=== PATIENT | male | born 1960 | race Caucasian/White ===

== ENCOUNTER 2021-07-01 11:47 | Inpatient (IN) | payer MEDICAID ==
[2021-07-01] VITALS (7 sets, daily range): BP systolic 176–246; BP diastolic 123–189
[~2021-07-01] VITALS: Ht 172.7 cm; Wt 62.1 kg
--- NOTE | 2021-07-01 11:47 | NUR ---
BIBA TAKEN TO ER BED 2
--- NOTE | 2021-07-01 11:58 | NUR ---
60 Y/O MALE BIBA FROM STREET, NOTED WITH ABD PAIN 10/10 X 1 WEEK, BURNING, PRESSURE,,A KAREN, [facility] BP 220/104, STATED THEY SMOKED COCAINE TODAY. C/O CHEST PAIN PRESSURE 10/10, SOB. A/OX4, GCS 15, RESPIRATIONS EVEN AND UNLABORED. PT STATED THAT THEY WERE IN [facility] 1 WEEK AGO AND LEFT AMA, THEY DIAGNOSED HIM WITH HYPERTENSION, DID NOT RECEIVE ANY MEDICATION. STATES THAT HE WAS AN IV DRUG USER. NKDario PMH: HTN
[2021-07-01] MEDS ORDERED: NACL 0.9% 1,000 ML IV ONE ×2 (12:15→14:00)
[2021-07-01] MEDS ORDERED: HALOPERIDOL IM 5 MG/ML VIAL IVP ONE (12:15)
[2021-07-01] MEDS ORDERED: diphenhydrAMINE 50 MG/ML VIAL IVP ONE ×2 (12:15→17:20)
[2021-07-01] MEDS ORDERED: LORazepam 2 MG/ML VIAL IVP ONE (12:25)
[2021-07-01] MEDS ORDERED: ONDANSETRON 4 MG/2 ML VIAL IVP ONE (12:30)
[2021-07-01] MEDS ORDERED: NITROGLYCERIN 0.4 MG TAB SL ONE (12:30)
--- NOTE | 2021-07-01 13:05 | NUR ---
LAB AT BEDSIDE
[2021-07-01] MEDS ORDERED: NITROGLYCERIN 2% 1 GM PKT TP ONE (13:30)
[2021-07-01 13:39] LABS: BASOPHILS # (AUTO) 0.1 K/uL (0.00-0.22); BASOPHILS % (AUTO) 1.3 % (0.0-2.0); EOSINOPHILS # (AUTO) 0.2 K/uL (0-0.4); EOSINOPHILS % (AUTO) 3.3 % (0.0-4.0); HEMATOCRIT 37.4 % (36-52); HEMOGLOBIN 13.2 g/dL (12.0-18.0); LYMPHOCYTES # (AUTO) 2.1 K/uL (2.0-11.5); LYMPHOCYTES % (AUTO) 29.9 % (20.5-51.1); MEAN CORPUSCULAR HEMOGLOBIN 34 pg (27-31); MEAN CORPUSCULAR HGB CONC 35 g/dL (33-37); MEAN CORPUSCULAR VOLUME 96.9 fL (80-94); MONOCYTES # (AUTO) 0.5 K/uL (0.8-1.0); MONOCYTES % (AUTO) 6.9 % (1.7-9.3); NEUTROPHILS # (AUTO) 4.2 K/uL (1.8-7.7); NEUTROPHILS % (AUTO) 58.6 % (42.2-75.2); PLATELET COUNT (AUTO) 159 K/uL (140-450); RED BLOOD CELL COUNT(AUTO) 3.86 MIL/uL (4.20-6.10); RED CELL DISTRIBUTION WIDTH 13.7 % (11.6-13.7); WHITE BLOOD COUNT (AUTO) 7.1 K/uL (4.8-10.8)
[2021-07-01 13:52] LABS: ALBUMIN 2.8 g/dL (3.4-5.0); ANION GAP 7.8 (8-16); CARBON DIOXIDE 26.6 mmol/L (21-32); CREATININE 1.6 mg/dL (0.6-1.3); POTASSIUM 3.4 mmol/L (3.5-5.1); TOTAL BILIRUBIN 0.7 mg/dL (0.0-1.0)
[2021-07-01] MEDS ORDERED: NITROGLYCERIN 50 MG/D5W PREMIX 250 ML IV ONE ×2 (14:00→16:07)
--- NOTE | 2021-07-01 14:35 | NUR ---
PT NOTED TO HAVE DECREASE IN O2, SATTING AT 90% ON ROOM AIR, DR. ARAUJO MADE AWARE AND STARTED ON O2 2LPM NC, SATTING NOW AT 96-99%
[2021-07-01] MEDS ORDERED: DOCUSATE SODIUM 100 MG GELCAP PO PRN (15:25)
[2021-07-01] MEDS ORDERED: SODIUM PHOS / POTASSIUM PHOS 1 PKT PDR PO PRN (15:25)
[2021-07-01] MEDS ORDERED: MORPHINE SULFATE 2 MG/ML SYR IVP PRN (15:25)
[2021-07-01] MEDS ORDERED: MAGNESIUM OXIDE 400 MG TAB PO PRN (15:25)
[2021-07-01] MEDS ORDERED: ACETAMINOPHEN 325 MG TAB PO PRN (15:25)
[2021-07-01] MEDS ORDERED: POTASSIUM CHLORIDE 10 MEQ TABER PO PRN (15:25)
[2021-07-01] MEDS ORDERED: ONDANSETRON 4 MG/2 ML VIAL IM/IVP PRN (15:25)
[2021-07-01] MEDS ORDERED: NITROGLYCERIN 50 MG/D5W PREMIX 250 ML IV PRN (15:55)
--- NOTE | 2021-07-01 15:55 | NUR ---
Patient will be admitted to care of DR YA. Admited to ICU. Will go to [facility] ICU 1. Belongings list completed. Report to JENNIFER GARCIA.
[2021-07-01 16:26] LABS: MAGNESIUM 2.2 mg/dL (1.8-2.4); PHOSPHORUS 3.7 mg/dL (2.5-4.9); THYROID STIMULATING HORMONE 2.08 uIU/mL (0.34-3.74)
[2021-07-01] MEDS: hydrALAZINE 20 MG/ML VIAL IVP PRN (16:28)
--- NOTE | 2021-07-01 16:42 | NUR ---
PT WAS B/B FROM ED @1540 WITH CORONA. CO HTN. INITIALLY UNABLE TO DETECT BP. TRIED SEVERAL TIME. GOT BP 208/137-97. NITROGLYCERIN DRIP WAS STARTED STAT. PT WAS ALSO RESTLESS ANG AGITATING. CO PAIN ON CHEST. MORPHINE 1MG GIVEN IVP. PT WAS RESTLESS AND AGITATIN STILL. CHARGE NURSE GOT MD ORDER OF ATIVAN FOR THE RESTLESS.
[2021-07-01] MEDS ORDERED: LORazepam 2 MG/ML VIAL ONE (16:48)
--- NOTE | 2021-07-01 16:48 | NUR ---
PT. GETTING RESTING VERY RESTING DIFFICUL TO CONTROL CALLED DR. YA ORDER TO GIVE ATIVAN 2MG IV P GIVEN.
--- NOTE | 2021-07-01 17:00 | NUR ---
WE FOND "CRYSTAL' ON PT'S BED. SECURITY WAS CALLED. DRUG WAS HANDED OVER TO HIM.
[2021-07-01] MEDS ORDERED: diphenhydrAMINE 50 MG/ML VIAL ONE (17:22)
--- NOTE | 2021-07-01 17:24 | NUR ---
PT GETTING VERY RESTLESS CALL DR. YA HE ORDER TO GIVE BENADRYL 50MG IVP GIVEN.
--- NOTE | 2021-07-01 18:37 | NUR ---
NITRO DRIP STARTED @1630 @5MCG/MIN. THEN INCREASED TO 10MCG/MIN @1700. NOW NITRO DRIP INCREASED TO 15MCG/MIN BP WAS 130/130 Addendum: 07/01/21 at 1841 by Agency Nurse 19, RN RN PT IS AGITATING ON BED. ATTENDING WAS PAGED BY CHARGE NURSE DERRICK FRIEDMAN FOR MORE SEDATION.
[2021-07-01] MEDS: LORazepam 2 MG/ML VIAL IVP PRN (22:19)
--- NOTE | 2021-07-01 22:21 | NUR ---
PATIENT VERY RESTLESS, AGITATED TRYING TO GET OUT OF BED. DAY NURSE STATED TO ME HE FOUND CRYSTAL POWDER IN PATIENT PAINTS WHEN THEY TOOK THEM OFF. B/P 216/159, HEART RATE 100, TEMP 97.9. LUNGS DIMINISH. ON ROOM AIR. PATIENT RECEIVED ATIVAN 2 MG IM 2218 TRIED MANY TIMES TO GET A LINE IN PATIENT NOTABLE TO WILL WAIT TIL PATIENT BECOMES MORE QUIET.
[2021-07-01] MEDS ORDERED: DEXMEDETOMIDINE HCL 100 MCG/ML 2 ML VIAL IV ONE (23:55)
[2021-07-02] VITALS (20 sets, daily range): BP systolic 118–211; BP diastolic 62–118
--- NOTE | 2021-07-02 01:25 | NUR ---
AT 100 JENNIFER PICC LINE NURSE HERE PUT X2 INTROCAN 18 GA GUIDED WITH ULTRA SOUND. STARTED PRECEDEX 400 MCG IN 100CC NS AT 0.2 MCG KG/HOUR.TO INCREASE EVERY 30 MIN 0.1 MCG/KG HOUR.WAS STARTED AT 0000. NEXT HUNG AT 0045 NITROGLYCERIN IN D5W 50MG STARTED AT 5 MCG/MIN INCREASE EVERY 5MIN NOW AT 0130 AT 17 MCG/MIN. MAX 20 MCG. PATIENT NOW LESS RESTLESS THEN BEFORE MIDNITE.
--- NOTE | 2021-07-02 01:35 | NUR ---
JENNIFER PUT INTROCAN 18 GA IN BOTH ARMS AT 2330. WITH ULTRA SOUND.
[2021-07-02] MEDS: LORazepam 2 MG/ML VIAL IVP PRN ×2 (05:14→20:20)
--- NOTE | 2021-07-02 05:57 | NUR ---
0555 TURN OFF NITRO V/S HEART RATE 65 B/P 128/62. PRECEDEX AT 1.0 16 ML/HR. STILL INFUSING.
[2021-07-02] MEDS: DEXMEDETOMIDINE HCL 400 MCG in NACL 0.9% 96 ML IV SCH ×5 (07:11→16:02)
[2021-07-02 07:15] LABS: BASOPHILS # (AUTO) 0.1 K/uL (0.00-0.22); BASOPHILS % (AUTO) 0.9 % (0.0-2.0); EOSINOPHILS % (AUTO) 0.8 % (0.0-4.0); HEMATOCRIT 34.8 % (36-52); HEMOGLOBIN 12.4 g/dL (12.0-18.0); LYMPHOCYTES # (AUTO) 1.4 K/uL (2.0-11.5); LYMPHOCYTES % (AUTO) 21.2 % (20.5-51.1); MEAN CORPUSCULAR HEMOGLOBIN 34 pg (27-31); MEAN CORPUSCULAR HGB CONC 36 g/dL (33-37); MEAN CORPUSCULAR VOLUME 95.7 fL (80-94); MONOCYTES # (AUTO) 0.6 K/uL (0.8-1.0); MONOCYTES % (AUTO) 8.7 % (1.7-9.3); NEUTROPHILS # (AUTO) 4.4 K/uL (1.8-7.7); NEUTROPHILS % (AUTO) 68.4 % (42.2-75.2); PLATELET COUNT (AUTO) 122 K/uL (140-450); RED BLOOD CELL COUNT(AUTO) 3.63 MIL/uL (4.20-6.10); RED CELL DISTRIBUTION WIDTH 13.6 % (11.6-13.7); WHITE BLOOD COUNT (AUTO) 6.5 K/uL (4.8-10.8)
--- NOTE | 2021-07-02 07:34 | NUR ---
RECEIVED PATIENT FROM FIELD CANE SCALE CLERK NURSE FOR CONTINUITY OF CARE. PT IS AOX0, PT UNDER SEDATION. RESPIRATIONS EVEN AND UNLABORED. ON ROOM AIR AND NO RESPIRATORY DISTRESS NOTED. SKIN IS, WARM, DRY, AND INTACT. IV SITE ON LFA AND RFA 18 G. INTACT AND PATENT. INFUSING PRECEDEX 1 MCG/KG/HR. DRY WEIGHT 63 KG. FLACC 0. INITIAL ASSESSMENT COMPLETED. PLAN OF CARE DISCUSSED. SAFETY PRECAUTIONS IN PLACE. CALL LIGHT WITHIN REACH. WILL CONTINUE TO MONITOR.
[2021-07-02] MEDS ORDERED: DEXMEDETOMIDINE HCL 100 MCG/ML 2 ML VIAL IV ONE (07:48)
[2021-07-02 07:53] LABS: CARBON DIOXIDE 26.4 mmol/L (21-32); CREATININE 1.6 mg/dL (0.6-1.3); POTASSIUM 3.4 mmol/L (3.5-5.1)
--- NOTE | 2021-07-02 08:02 | NUR ---
PATIENT HAS BEEN SCREENED AND CATEGORIZED MODERATE NUTRITION RISK. PATIENT WILL BE SEEN WITHIN 3-5 DAYS OF ADMISSION. 07/02/21-07/06/[address]
[2021-07-02] MEDS ORDERED: HEPARIN PER PHARMACY MC PRN (08:30)
[2021-07-02] MEDS ORDERED: PANTOPRAZOLE 40 MG TABEC PO SCH (09:00)
[2021-07-02] MEDS ORDERED: FUROSEMIDE 40 MG/4 ML VIAL IVP SCH (09:00)
[2021-07-02] MEDS ORDERED: PANTOPRAZOLE 40 MG INJ VIAL IVP ONE (09:15)
--- NOTE | 2021-07-02 09:45 | NUR ---
TOOK PATIENT TO RADIOLOGY FOR HEAD CT
--- NOTE | 2021-07-02 09:57 | NUR ---
TRANSFERRED PATIENT BACK TO ROOM. PT IS STABLE.
--- NOTE | 2021-07-02 10:00 | NUR ---
FULL SERVICE SUPERVISOR AT BEDSIDE.
[2021-07-02 10:22] LABS: PROTHROMBIN TIME 10.3 secs (10.8-13.4)
[2021-07-02] MEDS ORDERED: hePARIN / DEXT 5% PREMIX 250 ML IV SCH (11:00)
--- NOTE | 2021-07-02 12:05 | NUR ---
US TECH AT BEDSIDE
[2021-07-02] MEDS: hydrALAZINE 20 MG/ML VIAL IVP PRN (12:12)
[2021-07-02 12:52] LABS: BILIRUBIN,URINE NEGATIVE (NEGATIVE); BLOOD, URINE 1+ (NEGATIVE); COLOR,URINE YELLOW (YELLOW); LEUKOCYTE ESTERASE ,URINE NEGATIVE (NEGATIVE); NITRITE, URINE NEGATIVE (NEGATIVE); PH,URINE 6.5 (5.0-9.0); UGLUCOSE NEGATIVE (NEGATIVE)
--- NOTE | 2021-07-02 13:10 | NUR ---
INSERTED ROBERTSON CATHETER. COLLECTED URINE SAMPLE AND SENT TO LABS
[2021-07-02 13:27] LABS: BARBITURATE, URINE NEGATIVE ng/ml (NEG <=200); BENZODIAZEPINE, URINE POSITIVE ng/mL (NEG <=200); CANNABINOID, URINE NEGATIVE ng/mL (NEG <=50); COCAINE, URINE POSITIVE ng/mL (NEG <=300); OPIATE, URINE POSITIVE ng/mL (NEG <=2000); PHENCYCLIDINE SCREEN,URINE NEGATIVE ng/mL (NEG <=25)
[2021-07-02 13:30] LABS: APPEARANCE,URINE HAZY (CLEAR)
[2021-07-02 13:33] LABS: RBC,URINE 0-5 /HPF (0-5); URINE AMORPHOUS URATE 1+ /HPF (None Seen); WBC,URINE NONE SEEN /HPF (0-5)
--- NOTE | 2021-07-02 15:15 | NUR ---
CLEANED AND CHANGED PATIENT'S LINEN. KEPT C/D/I. PT IS STABLE. NO DISTRESS NOTED. WILL CONTINUE TO MONITOR.
--- NOTE | 2021-07-02 17:40 | NUR ---
CHECKED ON PATIENT. PT IS STABLE. NO DISTRESS NOTED. WILL CONTINUE TO MONITOR.
--- NOTE | 2021-07-02 19:25 | NUR ---
ENDORSED TO COMPUTER SCIENTIST NURSE FOR CONTINUITY OF CARE. PT IS STABLE.
[2021-07-02] MEDS: FUROSEMIDE 40 MG/4 ML VIAL IVP SCH (21:39)
--- NOTE | 2021-07-02 21:54 | NUR ---
PATIENT LETHARGIC HAS PRECEDEX AT 1.0 MCG/KG/HR. AND HEPARIN 750 UNITS /HR 7.5CC/HR.START AT 1309. PATIENT GIVEN ATIVAN 2020 DUE TO AGITATION INCREASING. PRECEDEX AT 1 MCG/KG/HR HEART RATE BERTIN 59 HEART RATE.NO C/O OF CHEST PAIN GIVEN LASIX 40MG IVP. HAS A F/C DRAINING YELLOW URINE. TEMP 97.7. LAB NOT ABLE TO GET PTT FROM PATIENT. STATED WILL TRY AGAIN AT 2200. NO DISTRESS NOTED.
[2021-07-03] VITALS (20 sets, daily range): BP systolic 111–195; BP diastolic 54–103
[2021-07-03] MEDS: DEXMEDETOMIDINE HCL 400 MCG in NACL 0.9% 96 ML IV SCH ×2 (00:04→11:01)
[2021-07-03] MEDS: LORazepam 2 MG/ML VIAL IVP PRN ×2 (00:40→05:17)
--- NOTE | 2021-07-03 07:30 | NUR ---
RECEIVED PATIENT FROM CERTIFIED ENERGY MANAGER NURSE FOR CONTINUITY OF CARE. PT IS AOX1, RESPONDS BRIEFLY TO NAME SEDATED TO RASS-1. RESPIRATIONS EVEN AND UNLABORED. ON ROOM AIR AND NO RESPIRATORY DISTRESS NOTED. SKIN IS, WARM, DRY, AND INTACT. IV SITE ON LFA AND RFA 18 G. INTACT AND PATENT. INFUSING PRECEDEX 0.8 MCG/KG/HR AND HEPARIN DRIP 1000 UNITS/HR. DRY WEIGHT 63 KG. FLACC 0. INITIAL ASSESSMENT COMPLETED. PLAN OF CARE DISCUSSED. SAFETY PRECAUTIONS IN PLACE. CALL LIGHT WITHIN REACH. WILL CONTINUE TO MONITOR.
[2021-07-03 08:29] LABS: BASOPHILS # (AUTO) 0.1 K/uL (0.00-0.22); BASOPHILS % (AUTO) 1.1 % (0.0-2.0); EOSINOPHILS # (AUTO) 0.2 K/uL (0-0.4); EOSINOPHILS % (AUTO) 2.6 % (0.0-4.0); HEMATOCRIT 38.5 % (36-52); HEMOGLOBIN 13.5 g/dL (12.0-18.0); LYMPHOCYTES % (AUTO) 25.7 % (20.5-51.1); MEAN CORPUSCULAR HEMOGLOBIN 34 pg (27-31); MEAN CORPUSCULAR HGB CONC 35 g/dL (33-37); MEAN CORPUSCULAR VOLUME 96.9 fL (80-94); MONOCYTES # (AUTO) 0.8 K/uL (0.8-1.0); MONOCYTES % (AUTO) 10.6 % (1.7-9.3); NEUTROPHILS # (AUTO) 4.6 K/uL (1.8-7.7); PLATELET COUNT (AUTO) 133 K/uL (140-450); RED BLOOD CELL COUNT(AUTO) 3.97 MIL/uL (4.20-6.10); RED CELL DISTRIBUTION WIDTH 13.8 % (11.6-13.7); WHITE BLOOD COUNT (AUTO) 7.7 K/uL (4.8-10.8)
[2021-07-03 08:31] LABS: PROTHROMBIN TIME 10.6 secs (10.8-13.4)
[2021-07-03] MEDS: hydrALAZINE 10 MG TAB PO SCH ×3 (09:00→17:00)
--- NOTE | 2021-07-03 09:00 | NUR ---
DUE IV MEDS GIVEN ORDERED, PT NO AWAKE ENOUGH TO EAT OR TAKE PO MEDS. NOTIFIED DR BAILEY
[2021-07-03] MEDS: PANTOPRAZOLE 40 MG INJ VIAL IVP SCH (09:15)
[2021-07-03] MEDS: FUROSEMIDE 40 MG/4 ML VIAL IVP SCH (09:15)
[2021-07-03] MEDS: hydrALAZINE 20 MG/ML VIAL IVP PRN ×2 (09:15→19:31)
[2021-07-03 09:26] LABS: MAGNESIUM 2.4 mg/dL (1.8-2.4); PHOSPHORUS 5.5 mg/dL (2.5-4.9)
[2021-07-03] MEDS: ATORVASTATIN 20 MG TAB PO SCH (09:30)
[2021-07-03] MEDS ORDERED: cloNIDine-TTS1 0.1 MG/24 HR 1 EA PATCH TD SCH (10:06)
--- NOTE | 2021-07-03 10:30 | NUR ---
NOTIFIED DR BAILEY THAT RADIOLOGY CALLED AND THEY WANTED PLATELET PHERESIS BEFORE DOING PARACENTESIS. DR BAILEY ORDERED 1 UNIT PLATELET
--- NOTE | 2021-07-03 11:15 | NUR ---
SEEN AND EXAMINED BR DR SHETTY, ORDERS NOTED AND CARRIED OUT
[2021-07-03 11:20] LABS: APPEARANCE,URINE CLEAR (CLEAR); BILIRUBIN,URINE NEGATIVE (NEGATIVE); BLOOD, URINE 1+ (NEGATIVE); COLOR,URINE YELLOW (YELLOW); LEUKOCYTE ESTERASE ,URINE NEGATIVE (NEGATIVE); NITRITE, URINE NEGATIVE (NEGATIVE); UGLUCOSE NEGATIVE (NEGATIVE)
[2021-07-03] MEDS: MUPIROCIN CA NASAL 2% 1GM TUBE NS SCH (11:30)
[2021-07-03] MEDS: CHLORHEXADINE GLUC 2% CLOTH TP SCH (11:30)
[2021-07-03 11:56] LABS: CALCIUM OXALATE CRYSTALS,UR None Seen /HPF (None Seen); COARSE GRANULAR CASTS,URINE None Seen /LPF (None Seen); FINE GRANULAR CASTS,URINE None Seen /LPF (None Seen); HYALINE CASTS, URINE None Seen /LPF (None Seen); OTHER CASTS, URINE None Seen /LPF (None Seen); OTHER CRYSTALS,URINE None Seen /HPF (None Seen); RBC,URINE 0-5 /HPF (0-5); RED BLOOD CELL CASTS,URINE None Seen /LPF (None Seen); TRICHOMONAS,URINE None Seen /HPF (None Seen); TRIPLE PHOSPHATE CRYSTAL,UR None Seen /HPF (None Seen); URIC ACID CRYSTALS,URINE None Seen /HPF (None Seen); URINE AMORPHOUS URATE None Seen /HPF (None Seen); WAXY CASTS,URINE None Seen /LPF (None Seen); WBC,URINE 0-5 /HPF (0-5); YEAST,URINE None Seen /HPF (None Seen)
--- NOTE | 2021-07-03 12:53 | NUR ---
DC PLANNIN YRS OLD MALE HOMELESS PATIENT WAS ADMITTED FROM ER WITH A DX OF ACUTE CHEST PAIN ACUTE CHF COCAINE ABUSE. PATIENT HAS A HX OF HTN. UDS +, TROP ON ARRIVAL [address] HEAD NEGATIVE. RENAL US BILATERAL RENAL CYST. ADMINISTERED IVF, HEPARIN DRIP , PRECEDEX DRIP AND IV LASIX . CONSULTED WITH PULMINDA NEPHRO AND CARDIO. DC PLAN NETWORK OPERATIONS CENTER TECHNICIAN TO EVALUATE FOR HOMELESSNESS. CM TO FOLLOW Addendum: 07/04/21 at 1143 by Brandi Felipe RN DC PLANNING: PATIENT MORE AWAKE, OFF PRECEDEX. CARDIO ADJUSTED HOME MEDS, DC HEPARIN AND RECOMMENDED AIRPLANE FIRST OFFICER F/U OUT PT, STALLION MANAGER RECOMMENDED TO DECREASE LASIX 20 MG TO DAILY, ANKUR RECOMMENDS CONTINUE PRECEDEX DRIP. DC PLAN NETWORK OPERATIONS CENTER TECHNICIAN TO EVALUATE HOMELESSNESS. CM TO FOLLOW. Addendum: 07/06/21 at 1026 by Brandi Felipe RN DC PLANNING: PATIENT STATED HE LIVES WITH HIS FRIEND. STABLE FOR DISCHARGE.
--- NOTE | 2021-07-03 13:00 | NUR ---
PT RESTING IN BED, OPENS EYES TO NAME, NODS TO SIMPLE QUESTIONS. STILL UNABLE TO TAKE PO MEDS AT THIS TIME DUE TO LETHARGY
--- NOTE | 2021-07-03 13:29 | NUR ---
DANY ATTEMPTED TO OUTREACH TO PATIENTS SIGNIFICANT OTHER, IRON AT [phone] HOWEVER, UNABLE TO REACH. DANY LEFT MESSAGE REQUESTING A RETURN PHONE CALL.
--- NOTE | 2021-07-03 15:20 | NUR ---
RESTING IN BED, NO APPARENT DISTRESS, NO S/S OF PAIN, ON ROOM AIR
[2021-07-03] MEDS: FUROSEMIDE 20 MG/2 ML VIAL IVP SCH (17:07)
--- NOTE | 2021-07-03 17:42 | NUR ---
RASS -1, RESPONSIVE TO NAME, NO RESPIRATORY DISTRESS, FLACC 0
--- NOTE | 2021-07-03 19:15 | NUR ---
pt more awake at this time, able to swallow and drink without difficulty
--- NOTE | 2021-07-03 19:30 | NUR ---
RECEIVED REPORT FROM RN RADHAHIFT NURSE SCOTT GARCIA AT BEDSIDE FOR CONTINUITY OF CARE. PT LYING IN BED HE IS AROUSABLE TO NAME AND LIGHT SHAKING. EYES ARE EQUAL AND REACTIVE TO LIGHT PUPIL ON RIGHT EYE IS 2MM PUPIL ON LEFT EYE IS 3MM. PT CAN COMMUNICATE NEEDS IN SHORT SENTENCES. HE SAID HE WAS HUNGRY AND THIRSTY. PT ALSO HAS A ROBERTSON CATHETER IN PLACE AND DRAINING LIGHT YELLOW URINE. NO EDEMA OF LOWER LEGS AND SKIN INTACT. HE HAS A LEFT AND RIGHT F/A 18 GUAGE. PRECEDEX IS RUNNING AT 0.4MCG/KG/HR. LEFT IV SITE IS SALINE LOCKED AT THIS TIME. PT DEMEANOR IS CALM AND COOPERATIVE. ALL UNIVERSAL FALLS PRECAUTIONS IN PLACE.
--- NOTE | 2021-07-03 20:15 | NUR ---
PT WAS GIVEN IVP HYDRALAZINE FOR B/P OF . PT HAS NO C/O AT THIS TIME. DIET WAS CHANGED TO CARDIAC DUE TO PT MORE AWAKE AND ABLE TO EAT. PT ALSO GIVEN ORDERED AND SCHEDULED HEPARIN SQ SHOT. PT EDUCATED REGARDING PURPOSE OF MEDICATION AND HE VERBALIZED UNDERSTANDING. WILL REASSESS B/P. AL REQUESTED NEEDS ATTENDED BY STAFF AND ALL UNIVERSAL FALLS PRECAUTIONS IN PLACE.
--- NOTE | 2021-07-03 21:00 | NUR ---
BLOOD PRESSURE REASSESSED IT WAS 140/84, PT HAS NO S/S OF PAIN OR DISTRESS NOTED. ALL ORDERED PRECAUTIONS IN PLACE.
--- NOTE | 2021-07-03 22:00 | NUR ---
PT ALERT AND AWAKE NO C/O VOICED. HE IS SPEAKING ON PHONE TO GIRLFRIEND.
--- NOTE | 2021-07-03 23:00 | NUR ---
PT REQUESTED AND ATE SANDWICH AT BEDSIDE, HE IS CALM AND WATCHING TV IN BED.
[2021-07-04] VITALS (15 sets, daily range): BP systolic 112–166; BP diastolic 59–102
--- NOTE | 2021-07-04 00:33 | NUR ---
PT IN BED RESTING WITH EYES CLOSED HE CONTINUES ON PRECEDEX AT CURRENT RATE NO C/O VOICED. HE IS RESTING BUT AROUSABLE TO LIGHT TOUCH V/S FOLLOWS: T 98.7 P 78 R B/P IS 118/61 02 97% ON ROOM AIR. PT FINISHED REQUEST SANDWICH NO C/O VOICED AND ALL UNIVERSAL FALLS PRECAUTIONS IN PLACE.
--- NOTE | 2021-07-04 01:50 | NUR ---
NEW BAG OF PRECEDEX HUNG AND CONTINUES AT 0.04MCG/KG/HR.
[2021-07-04] MEDS: DEXMEDETOMIDINE HCL 400 MCG in NACL 0.9% 96 ML IV SCH (01:55)
--- NOTE | 2021-07-04 02:00 | NUR ---
PT SLEEPING IN BED NO S/S OF PAIN OR DISTRESS NOTED. V/S FOLLOWS: P 77 R 20 B/P 125/59 02 98% ON ROOM AIR. ALL ORDERED PRECAUTIONS IN PLACE.
[2021-07-04 06:20] LABS: BASOPHILS # (AUTO) 0.1 K/uL (0.00-0.22); BASOPHILS % (AUTO) 1.1 % (0.0-2.0); EOSINOPHILS # (AUTO) 0.1 K/uL (0-0.4); EOSINOPHILS % (AUTO) 1.7 % (0.0-4.0); HEMATOCRIT 37.7 % (36-52); HEMOGLOBIN 13.2 g/dL (12.0-18.0); LYMPHOCYTES # (AUTO) 1.8 K/uL (2.0-11.5); LYMPHOCYTES % (AUTO) 33.1 % (20.5-51.1); MEAN CORPUSCULAR HEMOGLOBIN 34 pg (27-31); MEAN CORPUSCULAR HGB CONC 35 g/dL (33-37); MEAN CORPUSCULAR VOLUME 96.5 fL (80-94); MONOCYTES # (AUTO) 0.6 K/uL (0.8-1.0); MONOCYTES % (AUTO) 10.4 % (1.7-9.3); NEUTROPHILS % (AUTO) 53.7 % (42.2-75.2); PLATELET COUNT (AUTO) 152 K/uL (140-450); RED BLOOD CELL COUNT(AUTO) 3.91 MIL/uL (4.20-6.10); WHITE BLOOD COUNT (AUTO) 5.5 K/uL (4.8-10.8)
[2021-07-04 06:24] LABS: ANION GAP 10.7 (8-16); CARBON DIOXIDE 28.3 mmol/L (21-32); CREATININE 2.3 mg/dL (0.6-1.3)
--- NOTE | 2021-07-04 06:30 | NUR ---
PT AWAKE AND HUNGRY ASKING FOR SOMETHING TO EAT, PT GIVEN SANDWICH AND DRINK. URINE OUTPUT IS 700MLS. NO C/O VOICED. ALL ORDERED PRECAUTIONS IN PLACE.
--- NOTE | 2021-07-04 07:15 | NUR ---
OPENING NOTE: REPORT RCVD FROM OUTGOING NOC RN, ALL CARES ASSUMED. (RADHA GARCIA)
[2021-07-04] MEDS: ATORVASTATIN 20 MG TAB PO SCH (08:23)
[2021-07-04] MEDS: PANTOPRAZOLE 40 MG INJ VIAL IVP SCH (08:23)
[2021-07-04] MEDS: hydrALAZINE 10 MG TAB PO SCH (08:23)
[2021-07-04] MEDS: FUROSEMIDE 20 MG/2 ML VIAL IVP SCH (08:26)
--- NOTE | 2021-07-04 08:30 | NUR ---
EDUCATION PROVIDED ON MEDICATIONS, ALL QUESTIONS ANSWERED. PATIENT WAS PASSIVE WITH SESSION. WILL CONTINUE TO EDUCATE THROUGHOUT SHIFT.
--- NOTE | 2021-07-04 09:09 | NUR ---
HELD HEPRAIN SQ DUE TO ELEVATED PTT, CHARGE AWARE AND MD PAGED FOR NOTIFICATION.
--- NOTE | 2021-07-04 09:35 | NUR ---
DR. GARCÍA MAKING ROUNDS, VERBAL BEDSIDE REPORT, NEW ORDERS OBTAINED AND TRANSCRIBED.
--- NOTE | 2021-07-04 09:48 | NUR ---
RIGHT FOREARM PIV D/C, DISLODGED. AREA CLEAN AND DRY WITH NO SIGNS OF INFECTION NOTED.
--- NOTE | 2021-07-04 09:50 | NUR ---
RENAL MD MAKING ROUNDS, VERBAL BEDSIDE REPORT GIVEN. NO NEW ORDERS AT THIS TIME.
--- NOTE | 2021-07-04 09:59 | NUR ---
FAMILY CALLED FOR UPDATES, PER PATIENT PERMISSION GIVEN TO GIVE INFORMATION TO THE SISTER. ALL QUESTIONS ANSWERED AT THIS TIME.
--- NOTE | 2021-07-04 10:01 | NUR ---
MEDIA CENTER SPECIALIST CONSULT PLACED, PATIENT HAS VERBALLY EXPRESSED WANTING INFORMATION ON DRUG REHAB / DETOX PROGRAMS.
[2021-07-04] MEDS ORDERED: POTASSIUM CHLORIDE 10 MEQ TABER PO SCH (10:30)
--- NOTE | 2021-07-04 10:30 | NUR ---
TRANSFER ORDER PLACED, PATIENT WILL GO TO TELE
--- NOTE | 2021-07-04 11:00 | NUR ---
DR. SHETTY MAKING ROUNDS, VERBAL BEDSIDE REPORT GIVEN. NO NEW ORDERS AT THIS TIME. MD TO REVIEW CHART.
[2021-07-04] MEDS: CHLORHEXADINE GLUC 2% CLOTH TP SCH (11:59)
[2021-07-04] MEDS: MUPIROCIN CA NASAL 2% 1GM TUBE NS SCH (12:02)
[2021-07-04] MEDS: chlordiazePOXIDE 25 MG CAP PO SCH ×2 (12:03→17:27)
[2021-07-04] MEDS: hydrALAZINE 25 MG TAB PO SCH ×2 (12:04→17:27)
[2021-07-04] MEDS: ISOSORBIDE DINITRATE 20 MG TAB PO SCH ×2 (12:04→17:26)
--- NOTE | 2021-07-04 13:23 | NUR ---
JON GARCIA FROM ICU GAVE REPORT FOR PATIENT CONTINUITY OF CARE.
--- NOTE | 2021-07-04 13:40 | NUR ---
PATIENT WHEELED ON WHEELCHAIR BY RADHA WEBB. PATIENT AWAKE, ALERT VERBALLY RESPONSIVE. DENIES PAIN OR ANY DISCOMFORT. WITH SALINE LOCK ON RIGHT FOREARM YEVGENIY 18. SKIN INTACT. PATIENT ON ROBERTSON CATHETER FOR I/O. PATIENT SITUATED TO ROOM AND GOES TO TOILET. ORIENTED TO ROOM, CALL LIGHT, VISITING HOURS. AND BED .
--- NOTE | 2021-07-04 13:46 | NUR ---
PATIENT TRANSFFERED TO ROOM 113 TELE, BEDSIDE REPORT GIVEN TO SHANITA MAYER, ALL QUESTIONS ANSWERED. PATIENT PLACED ONTO TELE MONITOR. BED LOW AND LOCKED FOR SAFETY. NO ACUTE DISTRESS AND OR DISCOMFORT.
--- NOTE | 2021-07-04 15:52 | NUR ---
DC PLANNING PATIENT WAS ADMITTED FROM [facility]/ED ON 07/01/21 WITH A DX OF ACUTE CHEST PAIN. SW MET WITH PATIENT AT BEDSIDE FOR THE PURPOSE OF DISCUSSING AND GATHERING COLLATERAL INFORMATION. PATIENT REPORTS LIVING AT [address] [place] [phone] WITH HIS , HOWEVER, REPORTS HIS STAYS ARE ON AND OFF, HE PREFERS TO BE ON THE STREET. PATIENT REPORTS EMERGENCY CONTACT AND MEDICAL DECISION MAKER JOSE ALBERTO HAYES [phone]. PATIENT DENIES CURRENTLY HAVING AD IN PLACE. SW SPOKE WITH PATIENT ABOUT THE IMPORTANCE OF A.D. PATIENT WAS RECEPTIVE AND ACCEPTED AD PACKET PROVIDED BY SW. PATIENT REPORTS BEING INCONSISTENT WITH SEEING HIS PCP AND LAST VISIT THREE YRS AGO. PATIENT REPORTS HIS SOURCE OF INCOME [employer] BENEFITS AND RECEIVES 1040.00. PATIENT REPORTS BEING INDEPENDENT AND DENIES USE OF DME. PATIENT DENIES CURRENTLY TAKING ANY MEDICATION AT THIS TIME. PATIENT DENIES BARRIERS IN ACQUIRING MEDICATION AND REPORTS RECEIVING MEDICATION FROM [facility] ON [facility] IN THE [facility]. SW INQUIRED ON SUBSTANCE USE HX. PATIENT REPORTED EXTENSIVE HX ON SUBSTANCE USE. PATIENT REPORTS DRUG OF CHOICE , "ROCK/CRACK COCAINE" USE BEGAN IN 2016 TO CURRENT. 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 PATIENT REPORTS BEING INCARCERATED FOR 17 YRS AFTER BEING SENTENCED TO 25 YRS TO LIFE. SW INQUIRED ON PATIENTS WILLINGNESS TO CHANGE AND PROVIDED PATIENT WITH PSYCHOEDUCATION ON STONE CARRIAGE OPERATOR SUBSTANCE USE. PATIENT WAS RECEPTIVE AND SPOKE ABOUT HIS FAMILY AND WANTING TO RETURN TO "NORMAL". PATIENT REPORTS BEING READY TO CHANGE HOWEVER, PATIENT IS ADAMANT ON FINDING A SUBSTANCE PROGRAM THAT WILL TAKE HIM AND HIS TOGETHER. PATIENT REPORTS ADEQUATE FRIEND AND FAMILY SUPPORT. PATIENT REPORTS 2 CHILDREN, 8 GRANDCHILD AND 1 GREAT GRANDDAUGTER. SW PROVIDED PATIENT WITH SUBSTANCE USE PACKET, EMERGENCY ASSISTANCE PACKET, AND HOMELESS RESOURCE PACKET. SW ENCOURAGED PATIENT TO BEGIN REACHING OUT TO INPATIENT SUBSTANCE USE PROGRAMS. PATIENT WAS THANKFUL AND REPORTED THAT HE WOULD REVIEW PACKET WITH HIS TO START MAKING CALLS. CURRENTL ME PLANS IS FOR PATIENT TO RETURN HOME AND IDENTIFY AN INPATIENT REHAB CENTER. Addendum: 07/05/21 at 1446 by Millie NERI DANY MET WITH PATIENT AT BEDSIDE FOR THE PURPOSE OF COLLECTING PATIENTS PHONE NUMBER TO ADD TO PATIENTS FILE. PATIENTS RABIA ARREDONDOACHDario JIMENEZTOMMY WAS AT BEDSIDE. DANY SPOKE WITH PATIENT AND NIECE AND IT WAS AGREED THAT JESSICA (NIECE) AND BRISEIDA HERNANDEZ (PATIENTS SISTER) WOULD BE ADDED PATIENTS EMERGENCY CONTACT AND MEDICAL DECISION MAKERS. DANY SPOKE WITH NIECE AND PROVIDED HER WITH THE INFORMATION SHARED WITH PATIENT AND RESOURCES PROVIDED BY DANY. RABIA REPORTED THAT SHE WOULD REVIEW RESOURCE PACKETS TO IDENTIFY SUBSTANCE USE PROGRAM SUITABLE FOR PATIENT. DANY ENCOURAGED PATIENT TO WORK DILIGENTLY WITH FAMILY TO IDENTIFY APPROPRIATE SUBSTANCE USE PROGRAMS. Addendum: 07/06/21 at 1102 by Millie NERI DANY OUTREACHED TO PATIENT PCP TO SCHEDULE FOLLOW UP APPT AT [phone]. D[facility] AND SCHEDULED IN OFFICE VISIT SET FOR 07/12 AT 8:[address] PERDUE AT [address] [facility] [id number], . SW PROVIDED PATIENT WITH APPT CARD WITH APPT DETAILS THAT INCLUDED DATE, TIME, ADDRESS, PHONE NUMBER AND DR. PATIENT WAS IN UNDERSTANDING AND WAS APPRECIATIVE FOR APPT MADE.
--- NOTE | 2021-07-04 17:29 | NUR ---
GIVEN ALL ORAL MEDICATION TOLERATED WELL. PATIENT GROOMING HIMSELF. ROBERTSON CATHER INTACT NO SIGN AND SYMPTOMS OF INFECTION OR BLEEDING.
--- NOTE | 2021-07-04 18:38 | NUR ---
PATIENT ON BED EATING DINER TOLERATED WELL. CALL LIGHT WITH IN EASY REACH.
--- NOTE | 2021-07-04 19:17 | NUR ---
PATIENT AWAKE EATING. GAVE REPORT TO INSTRUMENTS SALES REPRESENTATIVE FOR CONTINUITY OF CARE.
--- NOTE | 2021-07-04 19:30 | NUR ---
RECEIVED REPORT FROM RN DAYSHIFT NURSE AT BEDSIDE FOR CONTINUITY OF CARE, PT SITTING UP IN BED HE IS AOX4 ON ROOM AIR AND FINISHING DINNER, IV SITE R/F/A 18GUAGE WHICH IS SALINE LOCKED AT THIS TIME. PT ALSO HAS A ROBERTSON CATHETER INTACT AND DRAINING JOSUÉ URINE.
--- NOTE | 2021-07-04 20:00 | NUR ---
PT SITTING UP IN BED WATCHING TV V/S FOLLOWS: T 97.3 P 83 R 18 B/P 150/89 0 298% ON ROOM AIR. ALL ORDERED PRECAUTIONS IN PLACE.
[2021-07-04] MEDS ORDERED: ZOLPIDEM 5 MG TAB PO PRN (21:10)
--- NOTE | 2021-07-04 21:30 | NUR ---
PT GIVEN ORDERED HEPARIN SQ; EXPLAINED PURPOSE OF ORDERED MEDICATION AND PT VERBALIZED UNDERSTANDING. PT HAD REQUESTED THAT HIS ROBERTSON CATHETER BE REMOVED BECAUSE IT WAS CAUSING HIM PAIN. TEXTED ASSISTED LIVING DIRECTOR MD MARVIN WHOM ORDERED TO D/C ROBERTSON AND START VOIDING TRIAL. PT ALSO REQUESTED PRIYA OVALLEN FOR INSOMNIA.
--- NOTE | 2021-07-04 22:00 | NUR ---
PT ROBERTSON CATHETER WAS REMOVED BALLOON DEFLATED. PT WAS GIVEN A URINAL FOR VOIDING TRAILS. PT HAD 300MLS OF JOSUÉ URINE VOIDED VIA CATHETER.
[2021-07-04] MEDS: HYDROcodone/APAP 5/325 MG 1 TAB TAB PO PRN (22:23)
--- NOTE | 2021-07-04 22:30 | NUR ---
PT WAS GIVEN REQUESTED SANDWICH AND NORCO FOR MODERATE BACK PAIN. WILL MONITOR FOR EFFECT.
--- NOTE | 2021-07-05 00:30 | NUR ---
PT DECLINED ORDERED LIBRIUM, EXPLAINED PURPOSE OF LIBRIUM AND SIDE EFFECTS. PT SAID THAT HE DOESN'T HAVE A PROBLEM WITH ALCOHOL. PT DID REQUEST PRN AMBIEN TO HELP HIM SLEEP. PT GIVEN REQUESTED AMBIEN. PT WAS ASKING ABOUT HIS HEART FUNCTION AND ECHO RESULTS REVIEWED WITH PT. ENCOURAGED PT TO QUIT SUING ELICIT DRUGS BECAUSE IT IS DESTROYING HIS HEALTH. PT ACKNOWLEDGED UNDERSTANDING AND SAID HE WANTED TO BE AROUND FOR HIS GRAND KIDS. HE ALSO SAID THAT HE WANTS TO GO HOME AND THAT HE CAN QUIT USING DRUGS.
[2021-07-05 04:00] VITALS: BP 125/76
--- NOTE | 2021-07-05 04:00 | NUR ---
PT V/S FOLLOWS: T 97.1 P 81 R 18 B/P 125/76 02 97% PT RESTING IN ROOM ALL CONTACT AND UNIVERSAL PRECAUTIONS IN PLACE.
[2021-07-05] MEDS: chlordiazePOXIDE 25 MG CAP PO SCH ×5 (06:24→23:47)
--- NOTE | 2021-07-05 06:26 | NUR ---
PT AGREED TO TAKE ORDERED LIBRIUM LABS DRAWN AT BEDSIDE, PT GIVEN REQUESTED SANDWICH AND JUICE. ALL ORDERED PRECAUTIONS IN PLACE.
[2021-07-05 06:49] LABS: BASOPHILS # (AUTO) 0.1 K/uL (0.00-0.22); BASOPHILS % (AUTO) 0.8 % (0.0-2.0); EOSINOPHILS # (AUTO) 0.2 K/uL (0-0.4); EOSINOPHILS % (AUTO) 3.4 % (0.0-4.0); HEMATOCRIT 31.3 % (36-52); LYMPHOCYTES # (AUTO) 2.1 K/uL (2.0-11.5); LYMPHOCYTES % (AUTO) 31.4 % (20.5-51.1); MEAN CORPUSCULAR HEMOGLOBIN 34 pg (27-31); MEAN CORPUSCULAR HGB CONC 35 g/dL (33-37); MEAN CORPUSCULAR VOLUME 97.3 fL (80-94); MONOCYTES # (AUTO) 0.9 K/uL (0.8-1.0); MONOCYTES % (AUTO) 12.8 % (1.7-9.3); NEUTROPHILS # (AUTO) 3.5 K/uL (1.8-7.7); NEUTROPHILS % (AUTO) 51.6 % (42.2-75.2); PLATELET COUNT (AUTO) 152 K/uL (140-450); RED BLOOD CELL COUNT(AUTO) 3.22 MIL/uL (4.20-6.10); RED CELL DISTRIBUTION WIDTH 13.9 % (11.6-13.7); WHITE BLOOD COUNT (AUTO) 6.8 K/uL (4.8-10.8)
[2021-07-05 07:09] LABS: ANION GAP 12.1 (8-16); CARBON DIOXIDE 26.5 mmol/L (21-32); CREATININE 2.3 mg/dL (0.6-1.3); POTASSIUM 3.6 mmol/L (3.5-5.1)
--- NOTE | 2021-07-05 07:43 | NUR ---
RECEIVED REPORT FROM FORESTRY INSTRUCTOR NURSE FOR CONTINUITY OF CARE. PATIENT ASLEEP BUT ABLE TO WAKE UP. RESPIRATION EVEN NAD NOT LABORED NO SHORTNESS OF BREATH. IV SITE ON RIGHT FOREARM YEVGENIY 18 SALINE LOCK. NO COMPLAIN OF URINARY RETENTION OR DYSURIA. ALL SAFETY MEASURE IN PLACE.
--- NOTE | 2021-07-05 07:55 | NUR ---
DR. CALLOWAY AT BED SIDE.
[2021-07-05] MEDS: ISOSORBIDE DINITRATE 20 MG TAB PO SCH ×3 (08:37→17:42)
[2021-07-05] MEDS: ECOTRIN 81 MG TABEC PO SCH (08:37)
[2021-07-05] MEDS: ATORVASTATIN 20 MG TAB PO SCH (08:38)
[2021-07-05] MEDS: FUROSEMIDE 40 MG TAB PO SCH (08:38)
[2021-07-05] MEDS: hydrALAZINE 25 MG TAB PO SCH ×3 (08:38→17:41)
--- NOTE | 2021-07-05 08:43 | NUR ---
GIVEN ALL DUE MEDICATION TOLERATED WELL. CALL LIGHT WITH IN EASY REACH.
[2021-07-05] MEDS ORDERED: carvediloL 3.125 MG TAB PO SCH (09:00)
[2021-07-05] MEDS: PANTOPRAZOLE 40 MG INJ VIAL IVP SCH (09:00)
--- NOTE | 2021-07-05 10:30 | NUR ---
PATIENT ON HIS ROOM LEAD OFF PUT BACK NOTED WEARING HIS CLOTHES ON AND HE SAID I HAVE TO LOOK GOOD I'M GOING TO HAVE VISITORS.CALL LIGHT WITH IN EASY REACH.
[2021-07-05] MEDS: MUPIROCIN CA NASAL 2% 1GM TUBE NS SCH (12:14)
[2021-07-05] MEDS: CHLORHEXADINE GLUC 2% CLOTH TP SCH (12:14)
[2021-07-05] MEDS: HYDROcodone/APAP 5/325 MG 1 TAB TAB PO PRN (12:16)
--- NOTE | 2021-07-05 12:16 | NUR ---
GIVEN MEDICATION ALSO COMPLAIN OF LOWER BACK PAIN MEDICATED ORDER. PATIENT SAYING WANT TO TALK TO THE DOCTOR I INFORM HIM THAT THE DOCTOR DO ROUND THIS MORNING AND HE EVEN ORDER PT EVAL FOR HIM.
--- NOTE | 2021-07-05 13:07 | NUR ---
PATIENT ON BED WITH VISITOR. PATIENT EATING LUNCH. ALL SAFETY MEASURE IN PLACE.
--- NOTE | 2021-07-05 13:20 | NUR ---
PT AT BED SIDE.
--- NOTE | 2021-07-05 13:38 | NUR ---
DR. RUSSELL AT BED SIDE.
--- NOTE | 2021-07-05 13:42 | NUR ---
PATIENT CALM ON BED GIVEN MEDICATION ORDER. CALL LIGHT WITH IN EASY REACH.
[2021-07-05 14:00] VITALS: BP 126/78
--- NOTE | 2021-07-05 15:30 | NUR ---
PATIENT ON BED RESTING WITH CALL LIGHT WITH IN EASY REACH.DENIES CHEST PAIN OR ANY DISCOMFORT. ALL SAFETY MEASURE IN PLACE.
--- NOTE | 2021-07-05 17:45 | NUR ---
PATIENT AWAKE ALERT ON HIS ROOM. GAVE HIS MEDICATION TOLERATED WELL. ALL SAFETY MEASURE IN PLACE.
--- NOTE | 2021-07-05 19:27 | NUR ---
GAVE REPORT TO LINUX SECURITY ADMINISTRATOR NURSE FOR CONTINUITY OF CARE.
--- NOTE | 2021-07-05 19:30 | NUR ---
RECEIVED BEDSIDE REPORT FROM DAY SHIFT RN FOR CONTINUITY OF CARE. PT IS AWAKE WITH VISITOR BY BEDSIDE. PT IS NOT IN ANY DISTRESS. PT IS ON RA BREATHING EVEN AND UNLABORED. PT HAS RFA 18 GAUGE SALINE LOCK. CALL LIGHT WITHIN REACH. ALL SAFETY MEASURES TAKEN. WILL CONTINUE TO MONITOR THE PT.
[2021-07-05 20:00] VITALS: BP 146/87
--- NOTE | 2021-07-05 23:50 | NUR ---
ALL DUE MEDS GIVEN. NO ADVERSE REACTION NOTED. WILL CONTINUE TO MONITOR THE PT.
[2021-07-06] VITALS: BP 137/82
--- NOTE | 2021-07-06 03:14 | NUR ---
PT IS SLEEPING IN BED COMFORTABLY. PT IS NOT IN ANY DISTRESS. BREATHING EVEN AND UNLABORED. CALL LIGHT WITHIN REACH. ALL SAFETY MEASURES TAKEN. WILL CONTINUE TO MONITOR THE PT.
[2021-07-06 04:00] VITALS: BP 175/108
[2021-07-06] MEDS: hydrALAZINE 20 MG/ML VIAL IVP PRN (04:34)
--- NOTE | 2021-07-06 04:36 | NUR ---
PT BP WAS AT 175/108. PT WAS GIVEN APRESOLINE PRN PER MD ORDER. WILL RECHECK BP AN HOUR LATER. PT IS ASYMPTOMATIC.
[2021-07-06] MEDS: chlordiazePOXIDE 25 MG CAP PO SCH (05:43)
--- NOTE | 2021-07-06 05:45 | NUR ---
ALL DUE MEDS GIVEN. NO ADVERSE REACTION NOTED. WILL CONTINUE TO MONITOR THE PT.
[2021-07-06 06:38] LABS: ANION GAP 8.4 (8-16); CARBON DIOXIDE 29.2 mmol/L (21-32); POTASSIUM 3.6 mmol/L (3.5-5.1)
[2021-07-06 06:45] LABS: BASOPHILS # (AUTO) 0.1 K/uL (0.00-0.22); BASOPHILS % (AUTO) 0.9 % (0.0-2.0); EOSINOPHILS # (AUTO) 0.5 K/uL (0-0.4); EOSINOPHILS % (AUTO) 8.1 % (0.0-4.0); HEMOGLOBIN 11.5 g/dL (12.0-18.0); LYMPHOCYTES # (AUTO) 2.1 K/uL (2.0-11.5); LYMPHOCYTES % (AUTO) 34.6 % (20.5-51.1); MEAN CORPUSCULAR HEMOGLOBIN 34 pg (27-31); MEAN CORPUSCULAR HGB CONC 35 g/dL (33-37); MEAN CORPUSCULAR VOLUME 97.6 fL (80-94); MONOCYTES # (AUTO) 0.6 K/uL (0.8-1.0); MONOCYTES % (AUTO) 9.5 % (1.7-9.3); NEUTROPHILS # (AUTO) 2.9 K/uL (1.8-7.7); NEUTROPHILS % (AUTO) 46.9 % (42.2-75.2); PLATELET COUNT (AUTO) 167 K/uL (140-450); RED BLOOD CELL COUNT(AUTO) 3.38 MIL/uL (4.20-6.10); RED CELL DISTRIBUTION WIDTH 13.5 % (11.6-13.7); WHITE BLOOD COUNT (AUTO) 6.1 K/uL (4.8-10.8)
--- NOTE | 2021-07-06 07:23 | NUR ---
ENDORSED PT TO DAY SHIFT RN FOR CONTINUITY OF CARE. PT IS STABLE.
--- NOTE | 2021-07-06 07:51 | NUR ---
RECEIVED ENDORSEMENT FROM PM SHIFT NURSE THAT PATIENT STABLE, PIV R. FOREARM SALINE LOCK. WILL CONTINUE TO MONITOR
[2021-07-06 08:00] VITALS: BP 153/95
[2021-07-06] MEDS: LORazepam 2 MG/ML VIAL IVP PRN (08:21)
[2021-07-06] MEDS: ATORVASTATIN 20 MG TAB PO SCH (08:44)
[2021-07-06] MEDS: PANTOPRAZOLE 40 MG INJ VIAL IVP SCH (08:44)
[2021-07-06] MEDS: ECOTRIN 81 MG TABEC PO SCH (08:44)
[2021-07-06] MEDS: hydrALAZINE 25 MG TAB PO SCH (08:46)
[2021-07-06] MEDS: ISOSORBIDE DINITRATE 20 MG TAB PO SCH (08:46)
[2021-07-06] MEDS: FUROSEMIDE 40 MG TAB PO SCH (08:47)
[2021-07-06] MEDS ORDERED: ISOS10TA9 PO (09:00)
[2021-07-06] MEDS ORDERED: HYDR-1100 PO (09:00)
[2021-07-06] MEDS ORDERED: FURO-570 PO (09:00)
[2021-07-06] MEDS ORDERED: CARV3.122 PO (09:00)
[2021-07-06] MEDS ORDERED: ATOR20TA PO (09:00)
[2021-07-06] MEDS ORDERED: ASPI-1822 PO (09:00)
[2021-07-06] MEDS ORDERED: carvediloL 6.25 MG TAB PO SCH (09:00)
--- NOTE | 2021-07-06 09:18 | NUR ---
PHYSICAL THERAPY CO-SIGN The Physical Therapy Progress Notes documented by Floor Polisher have been reviewed. Reviewed/Co-Signed by: Zahraa Huber Documentation Done by:SHAAN JOHNSON PTA Addendum: 07/06/21 at 0919 by Zahraa Huber PT Amended: Links added.
[2021-07-06 10:01] VITALS: BP 153/95
--- NOTE | 2021-07-06 10:41 | NUR ---
DISCHARGE PATIENT PER PCP ORDER W/ STABLE CONDITION, IV ACCESS & WRIST BAND REMOVED , DISCHARGE CONSENT SIGNED PATIENT DISCHARGE EDUCATION DONE BEFORE D/C PATIENT.
== END 2021-07-06 10:40 | disposition home or self-care (01) | DRG 194 ==
LOC: EDSEX 11:47 → MED 11:47 → EDBEDREQSVC 14:07 → MIC 15:22 → MTU 07-04 13:45
PROVIDERS: ADMIT Hospitalist; ATTEND Hospitalist
DX: I13.0 Hypertensive heart and chronic kidney disease with heart failure and stage 1 through stage 4 chronic kidney disease, or unspecified chronic kidney disease (principal); N17.0 Acute kidney failure with tubular necrosis; I21.A1 Myocardial infarction type 2; G92.9 Unspecified toxic encephalopathy; E43 Unspecified severe protein-calorie malnutrition; I50.43 Acute on chronic combined systolic (congestive) and diastolic (congestive) heart failure; I16.1 Hypertensive emergency; E87.1 Hypo-osmolality and hyponatremia; E87.6 Hypokalemia; F14.10 Cocaine abuse, uncomplicated; F17.210 Nicotine dependence, cigarettes, uncomplicated; N18.9 Chronic kidney disease, unspecified; F15.10 Other stimulant abuse, uncomplicated; E11.22 Type 2 diabetes mellitus with diabetic chronic kidney disease; Z20.822 Contact with and (suspected) exposure to COVID-19
CPT/HCPCS: 36415; 70450; 71045; 71250; 76770; 80048; 80053; 80305; 81001; 82570; 83690; 83735; 83880; 84100; 84156; 84300; 84443; 84484; 85025; 85610; 85730; 87081; 93005; 96374; 96375; 97112; 97116; 97163-GP; 97530; 99285; C9113; J0360; J1200; J1644; J1940; J2060; J2270; J2405; J3490; Q0092

== ENCOUNTER 2023-04-07 18:08 | Inpatient (IN) | payer MEDICAID ==
[~2023-04-07] VITALS: Ht 177.8 cm; Wt 61.3 kg
[~2023-04-07 18:08] MED LIST: ASPI-1822 PO; ATOR20TA PO; CARV3.122 PO; FURO-570 PO; HYDR-1100 PO; ISOS10TA9 PO
[2023-04-07 18:09] VITALS: BP 215/140; PULSE 94; RESP 28; TEMP 97.8; O2SAT 97
[2023-04-07] MEDS ORDERED: NITROGLYCERIN 2% 1 GM PKT TP ONE (18:15)
[2023-04-07] MEDS: FUROSEMIDE 40 MG/4 ML VIAL IVP ONE (18:24)
[2023-04-07 18:29] VITALS: PULSE 82; O2SAT 99
[2023-04-07] MEDS: NITROGLYCERIN 0.4 MG TAB SL ONE (18:32)
[2023-04-07 18:44] LABS: BASOPHILS # (AUTO) 0.1 K/uL (0.00-0.22); BASOPHILS % (AUTO) 1.2 % (0.0-2.0); EOSINOPHILS # (AUTO) 0.3 K/uL (0-0.4); EOSINOPHILS % (AUTO) 4.5 % (0.0-4.0); HEMATOCRIT 33.2 % (36-52); HEMOGLOBIN 11.7 g/dL (12.0-18.0); LYMPHOCYTES # (AUTO) 1.6 K/uL (2.0-11.5); LYMPHOCYTES % (AUTO) 22.2 % (20.5-51.1); MEAN CORPUSCULAR HEMOGLOBIN 34 pg (27-31); MEAN CORPUSCULAR HGB CONC 35 g/dL (33-37); MEAN CORPUSCULAR VOLUME 95.4 fL (80-94); MONOCYTES # (AUTO) 0.6 K/uL (0.8-1.0); MONOCYTES % (AUTO) 8.6 % (1.7-9.3); NEUTROPHILS # (AUTO) 4.5 K/uL (1.8-7.7); NEUTROPHILS % (AUTO) 63.5 % (42.2-75.2); PLATELET COUNT (AUTO) 119 K/uL (140-450); RED BLOOD CELL COUNT(AUTO) 3.48 MIL/uL (4.20-6.10); RED CELL DISTRIBUTION WIDTH 14.4 % (11.6-13.7); WHITE BLOOD COUNT (AUTO) 7.1 K/uL (4.8-10.8)
[2023-04-07 18:50] LABS: FLU A ANTIGEN negative (NEGATIVE); FLU B ANTIGEN NEGATIVE (NEGATIVE)
[2023-04-07 18:55] LABS: ANION GAP 19.2 (8-16); CALCIUM 8.4 mg/dL (8.5-10.1); CARBON DIOXIDE 26.1 mmol/L (21-32); POTASSIUM 4.3 mmol/L (3.5-5.1)
[2023-04-07 19:02] LABS: ALANINE AMINOTRANSFERASE 23 U/L (12-78); ALBUMIN 3.3 g/dL (3.4-5.0); ALKALINE PHOSPHATASE 61 U/L (50-136); ASPARTATE AMINOTRANSFERASE 26 U/L (15-37); BILIRUBIN,DIRECT 0.1 mg/dL (0.0-0.3); CREATINE KINASE, TOTAL 175 U/L (39-308); MAGNESIUM 2.3 mg/dL (1.8-2.4); PHOSPHORUS 4.4 mg/dL (2.5-4.9); TOTAL BILIRUBIN 0.3 mg/dL (0.0-1.0)
[2023-04-07 19:03] LABS: CREATININE 8.7 mg/dL (0.6-1.3)
[2023-04-07 19:04] LABS: PARTIAL THROMBOPLASTIN TIME 25.6 secs (22-35.6); PROTHROMBIN TIME 10.5 secs (10.8-13.4)
[2023-04-07 19:08] LABS: LACTIC ACID 0.6 mmol/L (0.4-2.0)
[2023-04-07 19:40] LABS: BLOOD GAS BASE EXCESS -2.5 mmol/L (-2.0-2.0); BLOOD GAS HCO3 21.6 mmol/L (22-26); BLOOD GAS PCO2 34.7 mmHg (35-45); BLOOD GAS PH 7.411 (7.35-7.45); BLOOD GAS PO2 324.8 mmHg (75-100)
[2023-04-07 19:41] LABS: BLOOD GAS O2 SAT% 99.7 % (92.0-98.5)
[2023-04-07] MEDS: NITROGLYCERIN 50 MG/D5W PREMIX 250 ML IV ONE (19:54)
[2023-04-07] MEDS: hydrALAZINE 20 MG/ML VIAL IVP ONE ×2 (20:10→21:32)
[2023-04-07] MEDS ORDERED: FUROSEMIDE 40 MG TAB PO PRN (21:15)
[2023-04-07 21:30] VITALS: PULSE 86; O2SAT 100
[2023-04-07] MEDS: carvediloL 6.25 MG TAB PO ONE (21:34)
[2023-04-07] MEDS: ISOSORBIDE DINITRATE 10 MG TAB PO SCH (21:34)
[2023-04-07 22:00] VITALS: BP 134/85; PULSE 83; RESP 21; TEMP 97.1; O2SAT 100
[2023-04-07 23:00] VITALS: BP 172/100; PULSE 75; RESP 19; O2SAT 100
[2023-04-07] MEDS ORDERED: NICARDIPINE HYDROCHLORIDE 2.5 MG/ML VIAL IV ONE (23:00)
[2023-04-07] MEDS: NICARDIPINE HYDROCHLORIDE 25 MG in NACL 0.9% 240 ML IV PRN (23:26)
[2023-04-07] MEDS: NITROGLYCERIN 50 MG/D5W PREMIX 250 ML IV PRN (23:28)
[2023-04-08] VITALS (27 sets, daily range): BP systolic 132–194; BP diastolic 73–128; PULSE 71–90; RESP 14–22; TEMP 97.1–98; O2SAT 97–100
[2023-04-08] MEDS ORDERED: NICARDIPINE HYDROCHLORIDE 2.5 MG/ML VIAL IV ONE (04:30)
[2023-04-08] MEDS ORDERED: ALBUTEROL SULFATE/IPRATROPIU 3 ML SOL IH PRN (07:00)
[2023-04-08 07:31] LABS: APPEARANCE,URINE CLEAR (CLEAR); BILIRUBIN,URINE NEGATIVE (NEGATIVE); BLOOD, URINE NEGATIVE (NEGATIVE); COLOR,URINE YELLOW (YELLOW); LEUKOCYTE ESTERASE ,URINE NEGATIVE (NEGATIVE); NITRITE, URINE NEGATIVE (NEGATIVE); PH,URINE 6.5 (5.0-9.0); PROTEIN,URINE 2+ (NEGATIVE); UGLUCOSE NEGATIVE (NEGATIVE); UROBILINOGEN,URINE 0.2 EU/dL (0.2 - 1)
[2023-04-08 07:52] LABS: BASOPHILS # (AUTO) 0.1 K/uL (0.00-0.22); BASOPHILS % (AUTO) 0.8 % (0.0-2.0); EOSINOPHILS # (AUTO) 0.3 K/uL (0-0.4); EOSINOPHILS % (AUTO) 4.6 % (0.0-4.0); HEMATOCRIT 32.6 % (36-52); HEMOGLOBIN 11.5 g/dL (12.0-18.0); LYMPHOCYTES # (AUTO) 1.2 K/uL (2.0-11.5); LYMPHOCYTES % (AUTO) 17.9 % (20.5-51.1); MEAN CORPUSCULAR HEMOGLOBIN 33 pg (27-31); MEAN CORPUSCULAR HGB CONC 35 g/dL (33-37); MEAN CORPUSCULAR VOLUME 94.9 fL (80-94); MONOCYTES # (AUTO) 0.6 K/uL (0.8-1.0); MONOCYTES % (AUTO) 9.2 % (1.7-9.3); NEUTROPHILS # (AUTO) 4.4 K/uL (1.8-7.7); NEUTROPHILS % (AUTO) 67.5 % (42.2-75.2); PLATELET COUNT (AUTO) 106 K/uL (140-450); RED BLOOD CELL COUNT(AUTO) 3.44 MIL/uL (4.20-6.10); RED CELL DISTRIBUTION WIDTH 14.6 % (11.6-13.7); WHITE BLOOD COUNT (AUTO) 6.6 K/uL (4.8-10.8)
[2023-04-08 07:54] LABS: BACTERIA,URINE 1+ /HPF (None Seen); MUCUS,URINE None Seen /LPF (None Seen); RBC,URINE 0-5 /HPF (0-5); SQUAMOUS EPITHELIAL CELL,UR 0-3 (FEW) /LPF (0-3 (FEW))
[2023-04-08 07:55] LABS: COARSE GRANULAR CASTS,URINE 0-10 /LPF (None Seen)
[2023-04-08 07:57] LABS: WBC,URINE 0 /HPF (0-5)
[2023-04-08 08:11] LABS: ANION GAP 18.6 (8-16); CALCIUM 8.2 mg/dL (8.5-10.1); CARBON DIOXIDE 25.5 mmol/L (21-32); POTASSIUM 4.1 mmol/L (3.5-5.1); TOTAL BILIRUBIN 0.4 mg/dL (0.0-1.0); TOTAL PROTEIN, SERUM 7.5 g/dL (6.4-8.2)
[2023-04-08 08:36] LABS: CREATININE 9.4 mg/dL (0.6-1.3)
[2023-04-08] MEDS ORDERED: NON-FORMULARY ITEM (Hydralazine HCl (Hydralazine Hcl) 1 TAB) PO SCH (09:00)
[2023-04-08] MEDS: NIFEdipine 60 MG TABER PO SCH (09:57)
[2023-04-08] MEDS: FUROSEMIDE 40 MG/4 ML VIAL IVP SCH (09:57)
[2023-04-08] MEDS: carvediloL 3.125 MG TAB PO SCH (09:58)
[2023-04-08] MEDS: hydrALAZINE 25 MG TAB PO SCH (09:58)
[2023-04-08] MEDS: carvediloL 12.5 MG TAB PO SCH (13:35)
[2023-04-08] MEDS: LOSARTAN 50 MG TAB PO SCH (13:36)
[2023-04-08] MEDS ORDERED: BENZONATATE 100 MG CAPLF PO PRN (14:30)
[2023-04-08] MEDS ORDERED: ALBUMIN HUMAN 25% 50 ML IV PRN (17:40)
[2023-04-08] MEDS: hydrALAZINE 20 MG/ML VIAL IVP PRN (22:33)
[2023-04-09] VITALS (19 sets, daily range): BP systolic 146–196; BP diastolic 61–125; PULSE 67–111; RESP 18–27; TEMP 97.1–98.3; O2SAT 97–100
[2023-04-09 05:22] LABS: BASOPHILS # (AUTO) 0.1 K/uL (0.00-0.22); BASOPHILS % (AUTO) 1.3 % (0.0-2.0); EOSINOPHILS # (AUTO) 0.2 K/uL (0-0.4); EOSINOPHILS % (AUTO) 4.3 % (0.0-4.0); HEMATOCRIT 32.2 % (36-52); HEMOGLOBIN 11.4 g/dL (12.0-18.0); LYMPHOCYTES # (AUTO) 1.5 K/uL (2.0-11.5); MEAN CORPUSCULAR HEMOGLOBIN 34 pg (27-31); MEAN CORPUSCULAR HGB CONC 35 g/dL (33-37); MEAN CORPUSCULAR VOLUME 95.1 fL (80-94); MONOCYTES # (AUTO) 0.7 K/uL (0.8-1.0); MONOCYTES % (AUTO) 12.1 % (1.7-9.3); NEUTROPHILS % (AUTO) 55.3 % (42.2-75.2); PLATELET COUNT (AUTO) 113 K/uL (140-450); RED BLOOD CELL COUNT(AUTO) 3.38 MIL/uL (4.20-6.10); RED CELL DISTRIBUTION WIDTH 14.3 % (11.6-13.7); WHITE BLOOD COUNT (AUTO) 5.5 K/uL (4.8-10.8)
[2023-04-09 05:40] LABS: ANION GAP 14.2 (8-16); CALCIUM 7.8 mg/dL (8.5-10.1); CARBON DIOXIDE 28.5 mmol/L (21-32); POTASSIUM 3.7 mmol/L (3.5-5.1)
[2023-04-09 06:45] LABS: CREATININE 6.2 mg/dL (0.6-1.3)
[2023-04-09] MEDS: PANTOPRAZOLE 40 MG INJ VIAL IVP SCH (08:44)
[2023-04-09] MEDS ORDERED: hydrALAZINE 20 MG/ML VIAL IVP PRN ×2 (10:00→10:45)
[2023-04-09] MEDS: hydrALAZINE 25 MG TAB PO SCH ×2 (11:35→22:24)
[2023-04-09] MEDS: ISOSORBIDE DINITRATE 10 MG TAB PO SCH ×3 (11:36→22:23)
[2023-04-09] MEDS ORDERED: MUPIROCIN CA NASAL 2% 1GM TUBE NS SCH (13:00)
[2023-04-09] MEDS: ISOSORBIDE DINITRATE 20 MG TAB ONE (19:05)
[2023-04-09] MEDS: carvediloL 12.5 MG TAB PO SCH (22:23)
[2023-04-10] VITALS: BP 170/103; PULSE 66; PULSE 88; RESP 18; TEMP 98.2; O2SAT 97
[2023-04-10 06:08] LABS: HEPATITIS A ANTIBODY IGM Negative (Negative); HEPATITIS B CORE AB TOTAL Negative (Negative); HEPATITIS B CORE, IGM Negative (Negative); HEPATITIS B SURFACE ANTIBODY Reactive (.); HEPATITIS B SURFACE ANTIGEN Negative (Negative)
[2023-04-10] MEDS ORDERED: CHLORHEXADINE GLUC 2% CLOTH TP SCH (09:00)
[2023-04-10] MEDS ORDERED: MUPIROCIN CA NASAL 2% 1GM TUBE NS SCH (09:00)
[2023-04-10 10:32] LABS: HEPATITIS A ANTIBODY TOTAL Positive (Negative)
[2023-04-10 10:33] LABS: HEPATITIS C VIRUS ANTIBODY POSITIVE s/co rat (0.00 - 0.9)
== END 2023-04-10 00:44 | disposition left against medical advice (07) | DRG 194 ==
LOC: MED 18:08 → MMU 21:10 → MIC 21:42 → MTU 04-09 12:27
PROVIDERS: ADMIT Family Medicine; ATTEND Family Medicine
PROC: 5A09357 Assistance with Respiratory Ventilation, Less than 24 Consecutive Hours, Continuous Positive Airway Pressure (ICD-10-PCS; principal; 2023-04-08)
PROC: 5A1D70Z Performance of Urinary Filtration, Intermittent, Less than 6 Hours Per Day (ICD-10-PCS; 2023-04-08)
PROC: 5A1D70Z Performance of Urinary Filtration, Intermittent, Less than 6 Hours Per Day (ICD-10-PCS; 2023-04-08)
DX: I13.0 Hypertensive heart and chronic kidney disease with heart failure and stage 1 through stage 4 chronic kidney disease, or unspecified chronic kidney disease (principal); J96.01 Acute respiratory failure with hypoxia; E46 Unspecified protein-calorie malnutrition; N18.6 End stage renal disease; D63.1 Anemia in chronic kidney disease; Z20.822 Contact with and (suspected) exposure to COVID-19; F19.90 Other psychoactive substance use, unspecified, uncomplicated; I16.1 Hypertensive emergency; E78.5 Hyperlipidemia, unspecified; I50.23 Acute on chronic systolic (congestive) heart failure; Z99.2 Dependence on renal dialysis; Z79.899 Other long term (current) drug therapy; Z68.1 Body mass index [BMI] 19.9 or less, adult
CPT/HCPCS: 36415; 36600; 71045; 80048; 80053; 80076; 81001; 82550; 82803; 83605; 83735; 83880; 84100; 84484; 85025; 85610; 85730; 86704; 86706; 86708; 86709; 86803; 87040; 87081; 87086; 87340; 93005; 94660; 96374; 96375; 96376; 99291; C9113; J0360; J1644; J1940; J3490; Q0092

== ENCOUNTER 2023-04-19 02:40 | Emergency (ER) | payer MEDICAID ==
[~2023-04-19] VITALS: Ht 172.7 cm; Wt 59.0 kg
[2023-04-19 02:43] VITALS: BP 185/105; PULSE 68; RESP 20; TEMP 99.3; O2SAT 95
[2023-04-19 02:51] VITALS: O2SAT 99
[2023-04-19] MEDS: NITROGLYCERIN 0.4 MG TAB SL ONE (03:27)
[2023-04-19 03:56] LABS: BASOPHILS # (AUTO) 0.1 K/uL (0.00-0.22); BASOPHILS % (AUTO) 1.2 % (0.0-2.0); EOSINOPHILS # (AUTO) 0.3 K/uL (0-0.4); EOSINOPHILS % (AUTO) 4.6 % (0.0-4.0); HEMOGLOBIN 8.8 g/dL (12.0-18.0); LYMPHOCYTES # (AUTO) 0.9 K/uL (2.0-11.5); LYMPHOCYTES % (AUTO) 14.7 % (20.5-51.1); MEAN CORPUSCULAR HEMOGLOBIN 34 pg (27-31); MEAN CORPUSCULAR HGB CONC 35 g/dL (33-37); MEAN CORPUSCULAR VOLUME 96.9 fL (80-94); MONOCYTES # (AUTO) 0.5 K/uL (0.8-1.0); MONOCYTES % (AUTO) 7.8 % (1.7-9.3); NEUTROPHILS # (AUTO) 4.2 K/uL (1.8-7.7); NEUTROPHILS % (AUTO) 71.7 % (42.2-75.2); PLATELET COUNT (AUTO) 130 K/uL (140-450); RED BLOOD CELL COUNT(AUTO) 2.58 MIL/uL (4.20-6.10); RED CELL DISTRIBUTION WIDTH 14.8 % (11.6-13.7); WHITE BLOOD COUNT (AUTO) 5.8 K/uL (4.8-10.8)
[2023-04-19 04:11] LABS: ANION GAP 10.9 (8-16); CALCIUM 8.1 mg/dL (8.5-10.1); CARBON DIOXIDE 30.5 mmol/L (21-32); POTASSIUM 4.4 mmol/L (3.5-5.1)
[2023-04-19 04:16] LABS: CREATININE 8.1 mg/dL (0.6-1.3)
[2023-04-19] MEDS: FUROSEMIDE 40 MG/4 ML VIAL IVP SCH (05:27)
[2023-04-19] MEDS ORDERED: PRON INH (07:01)
[2023-04-19] MEDS ORDERED: ALBU0.0912 IH (07:01)
[2023-04-19] MEDS ORDERED: AZIT250T4 PO (07:01)
[2023-04-19] MEDS ORDERED: NEBU1EAC30 MC (07:01)
[2023-04-19] MEDS: ALBUTEROL SULFATE/IPRATROPIU 3 ML SOL IH ONE (07:05)
[2023-04-19 07:06] VITALS: PULSE 71; RESP 22; O2SAT 96
[2023-04-19 07:24] VITALS: O2SAT 96
[2023-04-19 07:33] VITALS: BP 204/143; PULSE 74; RESP 22; TEMP 98.5; O2SAT 96
[2023-04-19] MEDS: ENALAPRIL 10 MG TAB PO ONE (07:50)
== END 2023-04-19 07:57 | disposition home or self-care (01) ==
LOC: MED 02:40
DX: J06.9 Acute upper respiratory infection, unspecified (principal); I13.2 Hypertensive heart and chronic kidney disease with heart failure and with stage 5 chronic kidney disease, or end stage renal disease; N18.6 End stage renal disease; I50.9 Heart failure, unspecified; F17.200 Nicotine dependence, unspecified, uncomplicated; Z99.2 Dependence on renal dialysis; Z79.899 Other long term (current) drug therapy; Z79.82 Long term (current) use of aspirin
CPT/HCPCS: 36415; 71045; 80048; 83880; 84484; 85025; 93005; 94640; 96374; 99285; J1940; Q0092

== ENCOUNTER 2023-04-28 19:47 | Inpatient (IN) | payer MEDICAID ==
[~2023-04-28] VITALS: Ht 172.7 cm; Wt 61.2 kg
[2023-04-28 19:47] VITALS: BP 194/120; PULSE 72; RESP 19; TEMP 98; O2SAT 96
[~2023-04-28 19:47] MED LIST changes: +ALBU0.0912 IH; +AZIT250T4 PO; +NEBU1EAC30 MC; +PRON INH
[2023-04-28 20:50] LABS: BASOPHILS # (AUTO) 0.1 K/uL (0.00-0.22); BASOPHILS % (AUTO) 2.2 % (0.0-2.0); EOSINOPHILS # (AUTO) 0.3 K/uL (0-0.4); EOSINOPHILS % (AUTO) 5.2 % (0.0-4.0); HEMATOCRIT 29.6 % (36-52); HEMOGLOBIN 10.3 g/dL (12.0-18.0); LYMPHOCYTES # (AUTO) 1.4 K/uL (2.0-11.5); LYMPHOCYTES % (AUTO) 27.3 % (20.5-51.1); MEAN CORPUSCULAR HEMOGLOBIN 34 pg (27-31); MEAN CORPUSCULAR HGB CONC 35 g/dL (33-37); MEAN CORPUSCULAR VOLUME 96.9 fL (80-94); MONOCYTES # (AUTO) 0.5 K/uL (0.8-1.0); MONOCYTES % (AUTO) 9.1 % (1.7-9.3); NEUTROPHILS # (AUTO) 2.8 K/uL (1.8-7.7); NEUTROPHILS % (AUTO) 56.2 % (42.2-75.2); PLATELET COUNT (AUTO) 146 K/uL (140-450); RED BLOOD CELL COUNT(AUTO) 3.05 MIL/uL (4.20-6.10); RED CELL DISTRIBUTION WIDTH 15.8 % (11.6-13.7)
[2023-04-28 21:03] LABS: ANION GAP 15.6 (8-16); CALCIUM 8.1 mg/dL (8.5-10.1); CARBON DIOXIDE 24.7 mmol/L (21-32); POTASSIUM 4.3 mmol/L (3.5-5.1)
[2023-04-28 21:06] LABS: CREATININE 9.4 mg/dL (0.6-1.3)
[2023-04-28] MEDS: ALBUTEROL SULFATE/IPRATROPIU 3 ML SOL IH ONE ×2 (21:24→22:55)
[2023-04-28 21:27] VITALS: PULSE 70; RESP 20; O2SAT 96
[2023-04-28 21:50] VITALS: O2SAT 96
[2023-04-28] MEDS ORDERED: PRED20TA5 PO (22:34)
[2023-04-28] MEDS ORDERED: ALBU0.0912 INH (22:34)
[2023-04-28] MEDS: hydrALAZINE 20 MG/ML VIAL IM ONE (22:35)
[2023-04-28 22:58] VITALS: PULSE 70; PULSE 72; RESP 24; O2SAT 100; O2SAT 99
[2023-04-29] VITALS (21 sets, daily range): BP systolic 139–222; BP diastolic 76–162; PULSE 66–99; RESP 14–34; TEMP 97.8–98.2; O2SAT 34–99
[2023-04-29] MEDS ORDERED: AMLO10TA PO (00:11)
[2023-04-29] MEDS ORDERED: CLON0.1T16 PO (00:15)
[2023-04-29] MEDS ORDERED: CLONIDINE (00:15)
[2023-04-29] MEDS ORDERED: ALBUTEROL SULFATE/IPRATROPIU 3 ML SOL IH ONE (01:03)
[2023-04-29] MEDS: NITROGLYCERIN 0.4 MG TAB SL ONE (01:13)
[2023-04-29] MEDS: NITROGLYCERIN 50 MG/D5W PREMIX 250 ML IV ONE (02:10)
[2023-04-29] MEDS ORDERED: HYDROcodone/APAP 5/325 MG 1 TAB TAB PO PRN (02:40)
[2023-04-29] MEDS ORDERED: hydrALAZINE 20 MG/ML VIAL IVP PRN (02:40)
[2023-04-29] MEDS ORDERED: ACETAMINOPHEN 325 MG TAB PO PRN (02:40)
[2023-04-29] MEDS ORDERED: LORazepam 2 MG/ML VIAL IVP PRN (02:40)
[2023-04-29] MEDS ORDERED: ALBUTEROL SULFATE/IPRATROPIU 3 ML SOL IH PRN (02:50)
[2023-04-29] MEDS ORDERED: NICARDIPINE HYDROCHLORIDE 2.5 MG/ML VIAL IV ONE ×2 (04:02)
[2023-04-29] MEDS: NICARDIPINE HYDROCHLORIDE 25 MG in NACL 0.9% 240 ML IV PRN ×2 (04:12→11:22)
[2023-04-29 10:05] LABS: CARBON DIOXIDE 23.1 mmol/L (21-32); POTASSIUM 4.1 mmol/L (3.5-5.1)
[2023-04-29 10:10] LABS: CREATININE 9.8 mg/dL (0.6-1.3)
[2023-04-29] MEDS: FUROSEMIDE 40 MG TAB PO SCH (11:24)
[2023-04-29] MEDS: ISOSORBIDE DINITRATE 10 MG TAB PO SCH (11:25)
[2023-04-29] MEDS: ASPIRIN 81 MG TAB.CHEW PO SCH (11:25)
[2023-04-29] MEDS: hydrALAZINE 25 MG TAB PO SCH (11:26)
[2023-04-29] MEDS: amLODIPine 5 MG TAB PO SCH (11:26)
[2023-04-29] MEDS: carvediloL 3.125 MG TAB PO SCH (11:31)
[2023-04-29] MEDS: carvediloL 12.5 MG TAB PO SCH (20:16)
[2023-04-29] MEDS: ATORVASTATIN 20 MG TAB PO SCH (20:16)
[2023-04-29] MEDS: LOSARTAN 50 MG TAB PO SCH (20:16)
[2023-04-30] VITALS (25 sets, daily range): BP systolic 107–196; BP diastolic 57–98; PULSE 70–90; RESP 17–26; TEMP 97.9–98.8; O2SAT 92–97
[2023-04-30 05:29] LABS: BASOPHILS # (AUTO) 0.1 K/uL (0.00-0.22); BASOPHILS % (AUTO) 1.8 % (0.0-2.0); EOSINOPHILS # (AUTO) 0.2 K/uL (0-0.4); EOSINOPHILS % (AUTO) 3.5 % (0.0-4.0); HEMATOCRIT 27.3 % (36-52); HEMOGLOBIN 9.5 g/dL (12.0-18.0); LYMPHOCYTES # (AUTO) 1.2 K/uL (2.0-11.5); LYMPHOCYTES % (AUTO) 20.8 % (20.5-51.1); MEAN CORPUSCULAR HEMOGLOBIN 34 pg (27-31); MEAN CORPUSCULAR HGB CONC 35 g/dL (33-37); MEAN CORPUSCULAR VOLUME 96.7 fL (80-94); MONOCYTES # (AUTO) 0.6 K/uL (0.8-1.0); MONOCYTES % (AUTO) 10.1 % (1.7-9.3); NEUTROPHILS # (AUTO) 3.8 K/uL (1.8-7.7); NEUTROPHILS % (AUTO) 63.8 % (42.2-75.2); PLATELET COUNT (AUTO) 151 K/uL (140-450); RED BLOOD CELL COUNT(AUTO) 2.83 MIL/uL (4.20-6.10); RED CELL DISTRIBUTION WIDTH 15.2 % (11.6-13.7); WHITE BLOOD COUNT (AUTO) 5.9 K/uL (4.8-10.8)
[2023-04-30 06:00] LABS: ANION GAP 13.8 (8-16); CALCIUM 7.6 mg/dL (8.5-10.1); CARBON DIOXIDE 25.7 mmol/L (21-32); POTASSIUM 3.5 mmol/L (3.5-5.1)
[2023-04-30] MEDS ORDERED: ASPIRIN 81 MG TAB.CHEW PO SCH (09:00)
[2023-04-30] MEDS: ISOSORBIDE DINITRATE 20 MG TAB PO SCH (17:00)
[2023-04-30] MEDS: hydrALAZINE 25 MG TAB PO SCH (17:01)
[2023-05-01] VITALS (13 sets, daily range): BP systolic 110–154; BP diastolic 56–93; PULSE 72–86; RESP 16–23; TEMP 97.8–98.6; O2SAT 93–99
[2023-05-01 07:38] LABS: BASOPHILS # (AUTO) 0.2 K/uL (0.00-0.22); BASOPHILS % (AUTO) 2.8 % (0.0-2.0); EOSINOPHILS # (AUTO) 0.2 K/uL (0-0.4); EOSINOPHILS % (AUTO) 3.6 % (0.0-4.0); HEMATOCRIT 31.7 % (36-52); HEMOGLOBIN 11.1 g/dL (12.0-18.0); LYMPHOCYTES # (AUTO) 1.4 K/uL (2.0-11.5); LYMPHOCYTES % (AUTO) 20.7 % (20.5-51.1); MEAN CORPUSCULAR HEMOGLOBIN 34 pg (27-31); MEAN CORPUSCULAR HGB CONC 35 g/dL (33-37); MEAN CORPUSCULAR VOLUME 96.4 fL (80-94); MONOCYTES # (AUTO) 0.7 K/uL (0.8-1.0); MONOCYTES % (AUTO) 9.7 % (1.7-9.3); NEUTROPHILS # (AUTO) 4.3 K/uL (1.8-7.7); NEUTROPHILS % (AUTO) 63.2 % (42.2-75.2); PLATELET COUNT (AUTO) 158 K/uL (140-450); RED BLOOD CELL COUNT(AUTO) 3.29 MIL/uL (4.20-6.10); RED CELL DISTRIBUTION WIDTH 15.2 % (11.6-13.7); WHITE BLOOD COUNT (AUTO) 6.8 K/uL (4.8-10.8)
[2023-05-01 07:47] LABS: ANION GAP 11.3 (8-16); CALCIUM 7.9 mg/dL (8.5-10.1); CARBON DIOXIDE 28.5 mmol/L (21-32); POTASSIUM 3.8 mmol/L (3.5-5.1)
[2023-05-01 07:49] LABS: CREATININE 4.9 mg/dL (0.6-1.3)
[2023-05-02 06:08] LABS: HEPATITIS A ANTIBODY IGM Negative (Negative); HEPATITIS B CORE AB TOTAL Negative (Negative); HEPATITIS B CORE, IGM Negative (Negative); HEPATITIS B SURFACE ANTIBODY Reactive (.); HEPATITIS B SURFACE ANTIGEN Negative (Negative)
[2023-05-02 19:57] LABS: HEPATITIS A ANTIBODY TOTAL Positive (Negative)
[2023-05-02 19:58] LABS: HEPATITIS C VIRUS ANTIBODY POSITIVE s/co rat (0.00 - 0.9)
== END 2023-05-01 11:33 | disposition left against medical advice (07) | DRG 194 ==
LOC: MED 19:47 → MMU 04-29 03:04 → MIC 04-29 03:04
PROVIDERS: ADMIT Family Medicine; ATTEND Family Medicine
PROC: 5A1D70Z Performance of Urinary Filtration, Intermittent, Less than 6 Hours Per Day (ICD-10-PCS; principal; 2023-04-29)
PROC: 5A09357 Assistance with Respiratory Ventilation, Less than 24 Consecutive Hours, Continuous Positive Airway Pressure (ICD-10-PCS; 2023-04-29)
PROC: 05HY33Z Insertion of Infusion Device into Upper Vein, Percutaneous Approach (ICD-10-PCS; 2023-04-29)
PROC: 5A1D70Z Performance of Urinary Filtration, Intermittent, Less than 6 Hours Per Day (ICD-10-PCS; 2023-04-30)
DX: I13.2 Hypertensive heart and chronic kidney disease with heart failure and with stage 5 chronic kidney disease, or end stage renal disease (principal); J96.01 Acute respiratory failure with hypoxia; E46 Unspecified protein-calorie malnutrition; I50.23 Acute on chronic systolic (congestive) heart failure; N18.6 End stage renal disease; Z91.158 Patient's noncompliance with renal dialysis for other reason; Z79.899 Other long term (current) drug therapy; Z68.20 Body mass index [BMI] 20.0-20.9, adult; I16.1 Hypertensive emergency
CPT/HCPCS: 36415; 71045; 80048; 83880; 84484; 85025; 86704; 86706; 86708; 86709; 86803; 87081; 87340; 93005; 94640; 94660; 96372; 99291; J0360; J1644; J3490; J7030

== ENCOUNTER 2023-05-06 06:15 | Inpatient (IN) | payer MEDICAID ==
[~2023-05-06] VITALS: Ht 172.7 cm; Wt 62.6 kg
[2023-05-06] VITALS (8 sets, daily range): BP systolic 162–199; BP diastolic 108–125; PULSE 53–86; RESP 17–35; TEMP 97.5–98.1; O2SAT 94–100
[~2023-05-06 06:15] MED LIST changes: +ALBU0.0912 INH; +AMLO10TA PO; +CLON0.1T16 PO; +CLONIDINE; +PRED20TA5 PO
[2023-05-06] MEDS: ALBUTEROL 0.083% 2.5 MG/3 ML NEBU INH ONE (07:57)
[2023-05-06 08:08] LABS: BASOPHILS # (AUTO) 0.1 K/uL (0.00-0.22); BASOPHILS % (AUTO) 2.2 % (0.0-2.0); EOSINOPHILS # (AUTO) 0.2 K/uL (0-0.4); EOSINOPHILS % (AUTO) 4.3 % (0.0-4.0); HEMATOCRIT 29.6 % (36-52); HEMOGLOBIN 10.3 g/dL (12.0-18.0); MEAN CORPUSCULAR HEMOGLOBIN 34 pg (27-31); MEAN CORPUSCULAR HGB CONC 35 g/dL (33-37); MEAN CORPUSCULAR VOLUME 96.8 fL (80-94); MONOCYTES # (AUTO) 0.3 K/uL (0.8-1.0); MONOCYTES % (AUTO) 5.6 % (1.7-9.3); NEUTROPHILS # (AUTO) 3.3 K/uL (1.8-7.7); NEUTROPHILS % (AUTO) 66.9 % (42.2-75.2); PLATELET COUNT (AUTO) 94 K/uL (140-450); RED BLOOD CELL COUNT(AUTO) 3.06 MIL/uL (4.20-6.10); RED CELL DISTRIBUTION WIDTH 14.7 % (11.6-13.7)
[2023-05-06 08:25] LABS: INR 1.12 (0.8-1.2); PARTIAL THROMBOPLASTIN TIME 26.7 secs (22-35.6); PROTHROMBIN TIME 11.7 secs (10.8-13.4)
[2023-05-06 08:30] LABS: ANION GAP 17.7 (8-16); CALCIUM 8.1 mg/dL (8.5-10.1); CARBON DIOXIDE 21.8 mmol/L (21-32); POTASSIUM 5.5 mmol/L (3.5-5.1)
[2023-05-06 08:33] LABS: ALANINE AMINOTRANSFERASE 16 U/L (12-78); ALBUMIN 3.1 g/dL (3.4-5.0); ALKALINE PHOSPHATASE 41 U/L (50-136); ASPARTATE AMINOTRANSFERASE 23 U/L (15-37); BILIRUBIN,DIRECT 0.1 mg/dL (0.0-0.3); TOTAL BILIRUBIN 0.3 mg/dL (0.0-1.0); TOTAL PROTEIN, SERUM 7.3 g/dL (6.4-8.2)
[2023-05-06] MEDS: FUROSEMIDE 40 MG TAB PO ONE (09:08)
[2023-05-06 10:03] LABS: COCAINE, URINE POSITIVE ng/mL (NEG <=300)
[2023-05-06 10:04] LABS: AMPHETAMINE, URINE NEGATIVE ng/ml (NEG <=1000); BARBITURATE, URINE NEGATIVE ng/ml (NEG <=200); BENZODIAZEPINE, URINE NEGATIVE ng/mL (NEG <=200); CANNABINOID, URINE NEGATIVE ng/mL (NEG <=50); OPIATE, URINE NEGATIVE ng/mL (NEG <=2000); PHENCYCLIDINE SCREEN,URINE NEGATIVE ng/mL (NEG <=25)
[2023-05-06] MEDS: FUROSEMIDE 40 MG/4 ML VIAL IVP ONE (10:08)
[2023-05-06] MEDS ORDERED: ACETAMINOPHEN 325 MG TAB PO PRN (10:40)
[2023-05-06] MEDS: LORazepam 2 MG/ML VIAL IM ONE (11:17)
[2023-05-06] MEDS ORDERED: NON-FORMULARY ITEM (Hydralazine HCl (Hydralazine Hcl) 1 TAB) PO SCH (13:00)
[2023-05-06] MEDS: NITROGLYCERIN 50 MG/D5W PREMIX 250 ML IV PRN (13:47)
[2023-05-06] MEDS: ISOSORBIDE DINITRATE 10 MG TAB PO SCH (13:52)
[2023-05-06] MEDS: CLONIDINE HYDROCHLORIDE 0.1 MG TAB PO SCH (16:44)
[2023-05-06] MEDS: hydrALAZINE 25 MG TAB PO SCH (16:46)
[2023-05-06] MEDS: ALBUTEROL 0.083% 2.5 MG/3 ML NEBU INH PRN (19:45)
[2023-05-07] VITALS (18 sets, daily range): BP systolic 159–204; BP diastolic 80–122; PULSE 57–76; RESP 12–25; TEMP 97.5–98.7; O2SAT 94–100
[2023-05-07] MEDS: ATORVASTATIN 20 MG TAB PO SCH (00:17)
[2023-05-07] MEDS: HYDROcodone/APAP 5/325 MG 1 TAB TAB PO PRN (00:22)
[2023-05-07] MEDS: FUROSEMIDE 40 MG TAB PO SCH (00:23)
[2023-05-07 05:54] LABS: BASOPHILS # (AUTO) 0.1 K/uL (0.00-0.22); BASOPHILS % (AUTO) 2.3 % (0.0-2.0); EOSINOPHILS # (AUTO) 0.2 K/uL (0-0.4); EOSINOPHILS % (AUTO) 4.7 % (0.0-4.0); HEMATOCRIT 26.5 % (36-52); HEMOGLOBIN 9.2 g/dL (12.0-18.0); LYMPHOCYTES # (AUTO) 1.1 K/uL (2.0-11.5); LYMPHOCYTES % (AUTO) 29.8 % (20.5-51.1); MEAN CORPUSCULAR HEMOGLOBIN 33 pg (27-31); MEAN CORPUSCULAR HGB CONC 35 g/dL (33-37); MEAN CORPUSCULAR VOLUME 95.9 fL (80-94); MONOCYTES # (AUTO) 0.3 K/uL (0.8-1.0); MONOCYTES % (AUTO) 8.7 % (1.7-9.3); NEUTROPHILS # (AUTO) 2.1 K/uL (1.8-7.7); NEUTROPHILS % (AUTO) 54.5 % (42.2-75.2); PLATELET COUNT (AUTO) 86 K/uL (140-450); RED BLOOD CELL COUNT(AUTO) 2.77 MIL/uL (4.20-6.10); RED CELL DISTRIBUTION WIDTH 14.7 % (11.6-13.7); WHITE BLOOD COUNT (AUTO) 3.9 K/uL (4.8-10.8)
[2023-05-07 06:42] LABS: CALCIUM 7.5 mg/dL (8.5-10.1); CARBON DIOXIDE 27.6 mmol/L (21-32); POTASSIUM 3.6 mmol/L (3.5-5.1)
[2023-05-07 06:46] LABS: CREATININE 6.4 mg/dL (0.6-1.3)
[2023-05-07] MEDS: amLODIPine 5 MG TAB PO SCH (09:25)
[2023-05-07] MEDS: ASPIRIN 81 MG TAB.CHEW PO SCH (09:27)
[2023-05-07] MEDS: carvediloL 3.125 MG TAB PO SCH (09:27)
[2023-05-08 01:00] VITALS: BP 181/101; PULSE 71; PULSE 76; RESP 22; O2SAT 96
[2023-05-08 02:00] VITALS: BP 216/140; PULSE 76; RESP 22; O2SAT 96
[2023-05-08] MEDS: hydrALAZINE 20 MG/ML VIAL IVP ONE (02:43)
[2023-05-08 04:00] VITALS: BP 165/109; PULSE 69; PULSE 76; RESP 22; TEMP 98.1; O2SAT 96
[2023-05-08 06:13] VITALS: BP 165/109; PULSE 76; RESP 22; TEMP 98.1; O2SAT 96
[2023-05-08 06:15] LABS: ANION GAP 8.5 (8-16); CALCIUM 7.6 mg/dL (8.5-10.1); CARBON DIOXIDE 30.2 mmol/L (21-32); POTASSIUM 3.7 mmol/L (3.5-5.1)
[2023-05-08 06:23] LABS: CREATININE 4.8 mg/dL (0.6-1.3)
[2023-05-08 08:00] VITALS: BP 165/109; PULSE 73; PULSE 74; PULSE 76; RESP 22; TEMP 98.1; O2SAT 96
[2023-05-08 08:17] VITALS: O2SAT 97
[2023-05-08 09:06] LABS: BASOPHILS # (AUTO) 0.2 K/uL (0.00-0.22); BASOPHILS % (AUTO) 3.1 % (0.0-2.0); EOSINOPHILS # (AUTO) 0.2 K/uL (0-0.4); EOSINOPHILS % (AUTO) 3.8 % (0.0-4.0); HEMATOCRIT 26.6 % (36-52); HEMOGLOBIN 9.3 g/dL (12.0-18.0); LYMPHOCYTES # (AUTO) 1.3 K/uL (2.0-11.5); LYMPHOCYTES % (AUTO) 25.9 % (20.5-51.1); MEAN CORPUSCULAR HEMOGLOBIN 34 pg (27-31); MEAN CORPUSCULAR HGB CONC 35 g/dL (33-37); MEAN CORPUSCULAR VOLUME 96.3 fL (80-94); MONOCYTES # (AUTO) 0.7 K/uL (0.8-1.0); MONOCYTES % (AUTO) 13.8 % (1.7-9.3); NEUTROPHILS # (AUTO) 2.7 K/uL (1.8-7.7); NEUTROPHILS % (AUTO) 53.4 % (42.2-75.2); PLATELET COUNT (AUTO) 98 K/uL (140-450); RED BLOOD CELL COUNT(AUTO) 2.76 MIL/uL (4.20-6.10); RED CELL DISTRIBUTION WIDTH 14.2 % (11.6-13.7)
== END 2023-05-08 10:00 | disposition left against medical advice (07) | DRG 194 ==
LOC: MED 06:15 → MTU 10:39 → MLD 10:39 → MIC 18:43
PROVIDERS: ADMIT Student in an Organized Health Care Education/Training Program; ATTEND Student in an Organized Health Care Education/Training Program
PROC: 05HY33Z Insertion of Infusion Device into Upper Vein, Percutaneous Approach (ICD-10-PCS; principal; 2023-05-06)
PROC: B54NZZA Ultrasonography of Left Upper Extremity Veins, Guidance (ICD-10-PCS; 2023-05-06)
PROC: 5A1D70Z Performance of Urinary Filtration, Intermittent, Less than 6 Hours Per Day (ICD-10-PCS; 2023-05-06)
PROC: 5A1D70Z Performance of Urinary Filtration, Intermittent, Less than 6 Hours Per Day (ICD-10-PCS; 2023-05-07)
DX: I13.2 Hypertensive heart and chronic kidney disease with heart failure and with stage 5 chronic kidney disease, or end stage renal disease (principal); J96.01 Acute respiratory failure with hypoxia; G93.40 Encephalopathy, unspecified; N18.6 End stage renal disease; I42.9 Cardiomyopathy, unspecified; K73.8 Other chronic hepatitis, not elsewhere classified; E87.70 Fluid overload, unspecified; I16.1 Hypertensive emergency; E87.5 Hyperkalemia; I50.9 Heart failure, unspecified; F15.10 Other stimulant abuse, uncomplicated; Z53.21 Procedure and treatment not carried out due to patient leaving prior to being seen by health care provider; Z99.2 Dependence on renal dialysis; Z79.82 Long term (current) use of aspirin; Z79.899 Other long term (current) drug therapy
CPT/HCPCS: 36415; 71045; 80048; 80076; 80305; 83880; 84484; 85025; 85610; 85730; 87081; 90935; 93005; 94640; 96372; 99291; C1751; G0482; J0360; J1644; J1940; J2060; J3490; J7613

== ENCOUNTER 2023-05-19 03:43 | Inpatient (IN) | payer MEDICAID ==
[~2023-05-19] VITALS: Ht 172.7 cm; Wt 64.9 kg
[2023-05-19] VITALS (7 sets, daily range): BP systolic 196–252; BP diastolic 122–144; PULSE 60–101; RESP 17–24; TEMP 98; O2SAT 93–100
[~2023-05-19 03:43] MED LIST changes: -AZIT250T4 PO; -CLONIDINE; -PRED20TA5 PO
[2023-05-19 04:21] LABS: APPEARANCE,URINE CLEAR (CLEAR); BILIRUBIN,URINE NEGATIVE (NEGATIVE); BLOOD, URINE 1+ (NEGATIVE); COLOR,URINE YELLOW (YELLOW); LEUKOCYTE ESTERASE ,URINE NEGATIVE (NEGATIVE); NITRITE, URINE NEGATIVE (NEGATIVE); PROTEIN,URINE 2+ (NEGATIVE); UGLUCOSE TRACE (NEGATIVE); UROBILINOGEN,URINE 0.2 EU/dL (0.2 - 1)
[2023-05-19 04:34] LABS: BACTERIA,URINE OCCASSIONAL /HPF (None Seen); SQUAMOUS EPITHELIAL CELL,UR 0-3 (FEW) /LPF (0-3 (FEW)); WBC,URINE NONE SEEN /HPF (0-5)
[2023-05-19 04:36] LABS: AMPHETAMINE, URINE NEGATIVE ng/ml (NEG <=1000); BARBITURATE, URINE NEGATIVE ng/ml (NEG <=200); BENZODIAZEPINE, URINE NEGATIVE ng/mL (NEG <=200); CANNABINOID, URINE NEGATIVE ng/mL (NEG <=50); COCAINE, URINE POSITIVE ng/mL (NEG <=300); OPIATE, URINE NEGATIVE ng/mL (NEG <=2000); PHENCYCLIDINE SCREEN,URINE NEGATIVE ng/mL (NEG <=25)
[2023-05-19] MEDS: hydrALAZINE 20 MG/ML VIAL IVP ONE (05:50)
[2023-05-19] MEDS ORDERED: cefTRIAXone 1,000 MG VIAL ONE (05:53)
[2023-05-19] MEDS: LEVOFLOXACIN 500 MG/D5W PREMIX 100 ML IV ONE (06:25)
[2023-05-19 06:54] LABS: BASOPHILS # (AUTO) 0.1 K/uL (0.00-0.22); BASOPHILS % (AUTO) 1.4 % (0.0-2.0); EOSINOPHILS # (AUTO) 0.4 K/uL (0-0.4); EOSINOPHILS % (AUTO) 6.1 % (0.0-4.0); HEMATOCRIT 29.9 % (36-52); HEMOGLOBIN 10.4 g/dL (12.0-18.0); LYMPHOCYTES # (AUTO) 1.2 K/uL (2.0-11.5); LYMPHOCYTES % (AUTO) 20.1 % (20.5-51.1); MEAN CORPUSCULAR HEMOGLOBIN 34 pg (27-31); MEAN CORPUSCULAR HGB CONC 35 g/dL (33-37); MEAN CORPUSCULAR VOLUME 97.9 fL (80-94); MONOCYTES # (AUTO) 0.4 K/uL (0.8-1.0); MONOCYTES % (AUTO) 6.7 % (1.7-9.3); NEUTROPHILS % (AUTO) 65.7 % (42.2-75.2); PLATELET COUNT (AUTO) 111 K/uL (140-450); RED BLOOD CELL COUNT(AUTO) 3.05 MIL/uL (4.20-6.10); RED CELL DISTRIBUTION WIDTH 15.8 % (11.6-13.7); WHITE BLOOD COUNT (AUTO) 6.1 K/uL (4.8-10.8)
[2023-05-19 07:23] LABS: ANION GAP 18.3 (8-16); POTASSIUM 4.3 mmol/L (3.5-5.1)
[2023-05-19 07:26] LABS: ALBUMIN 3.5 g/dL (3.4-5.0); BILIRUBIN,DIRECT 0.1 mg/dL (0.0-0.3); CREATININE 8.2 mg/dL (0.6-1.3); TOTAL BILIRUBIN 0.3 mg/dL (0.0-1.0)
[2023-05-19 07:32] LABS: LACTIC ACID 1.4 mmol/L (0.4-2.0)
[2023-05-19] MEDS ORDERED: HYDROcodone/APAP 5/325 MG 1 TAB TAB PO PRN (07:55)
[2023-05-19] MEDS ORDERED: MORPHINE SULFATE 4 MG/ML SYR IVP PRN (07:55)
[2023-05-19] MEDS ORDERED: ACETAMINOPHEN 325 MG TAB PO PRN (07:55)
[2023-05-19] MEDS: FUROSEMIDE 100 MG/10 ML VIAL IVP SCH (08:11)
[2023-05-19] MEDS: NITROGLYCERIN 50 MG/D5W PREMIX 250 ML IV PRN (08:19)
[2023-05-19] MEDS: cloNIDine-TTS2 0.2 MG/24 HR 1 EA PATCH TD SCH (10:05)
[2023-05-19] MEDS: IPRATROPIUM 0.02% 0.5 MG/2.5 ML NEBU INH SCH (13:52)
[2023-05-19] MEDS ORDERED: PIPERACILLIN/TAZOBACTAM 2.25 GM VIAL IV ONE ×2 (15:36)
[2023-05-19] MEDS: PIPERACILLIN/TAZOBACTAM 2.25 GM in DEXTROSE 5% 50 ML IV SCH (15:53)
[2023-05-19] MEDS: LOSARTAN 50 MG TAB PO SCH (16:01)
[2023-05-19] MEDS: amLODIPine 5 MG TAB PO SCH (16:01)
[2023-05-19] MEDS: ENALAPRILAT 2.5 MG/2 ML VIAL IVP SCH (16:03)
[2023-05-19 21:21] LABS: FLU A ANTIGEN negative (NEGATIVE); FLU B ANTIGEN negative (NEGATIVE)
[2023-05-20] VITALS (30 sets, daily range): BP systolic 120–218; BP diastolic 64–125; PULSE 72–95; RESP 18–24; TEMP 97–98.9; O2SAT 94–99
[2023-05-20] MEDS: LORazepam 2 MG/ML VIAL IVP PRN (01:08)
[2023-05-20 05:38] LABS: BASOPHILS # (AUTO) 0.1 K/uL (0.00-0.22); BASOPHILS % (AUTO) 1.6 % (0.0-2.0); EOSINOPHILS # (AUTO) 0.2 K/uL (0-0.4); EOSINOPHILS % (AUTO) 3.2 % (0.0-4.0); HEMATOCRIT 32.2 % (36-52); HEMOGLOBIN 11.1 g/dL (12.0-18.0); LYMPHOCYTES # (AUTO) 1.3 K/uL (2.0-11.5); LYMPHOCYTES % (AUTO) 18.7 % (20.5-51.1); MEAN CORPUSCULAR HEMOGLOBIN 34 pg (27-31); MEAN CORPUSCULAR HGB CONC 35 g/dL (33-37); MEAN CORPUSCULAR VOLUME 96.8 fL (80-94); MONOCYTES # (AUTO) 0.7 K/uL (0.8-1.0); MONOCYTES % (AUTO) 9.9 % (1.7-9.3); NEUTROPHILS # (AUTO) 4.8 K/uL (1.8-7.7); NEUTROPHILS % (AUTO) 66.6 % (42.2-75.2); PLATELET COUNT (AUTO) 121 K/uL (140-450); RED BLOOD CELL COUNT(AUTO) 3.33 MIL/uL (4.20-6.10); RED CELL DISTRIBUTION WIDTH 15.6 % (11.6-13.7); WHITE BLOOD COUNT (AUTO) 7.2 K/uL (4.8-10.8)
[2023-05-20] MEDS: hydrALAZINE 20 MG/ML VIAL IVP PRN (05:58)
[2023-05-20 06:35] LABS: ALBUMIN 2.9 g/dL (3.4-5.0); ANION GAP 11.8 (8-16); CALCIUM 7.7 mg/dL (8.5-10.1); CARBON DIOXIDE 30.9 mmol/L (21-32); POTASSIUM 3.7 mmol/L (3.5-5.1); TOTAL BILIRUBIN 0.4 mg/dL (0.0-1.0); TOTAL PROTEIN, SERUM 6.2 g/dL (6.4-8.2)
[2023-05-20 06:37] LABS: CREATININE 5.8 mg/dL (0.6-1.3)
[2023-05-20] MEDS: PANTOPRAZOLE 40 MG INJ VIAL IVP SCH (08:21)
[2023-05-20] MEDS: NIFEdipine 60 MG TABER PO SCH (08:22)
[2023-05-20] MEDS: LOSARTAN 50 MG TAB PO SCH (08:22)
[2023-05-20] MEDS ORDERED: amLODIPine 5 MG TAB PO SCH (09:00)
[2023-05-20] MEDS: ALBUTEROL 0.083% 2.5 MG/3 ML NEBU INH PRN (19:17)
[2023-05-21] VITALS (29 sets, daily range): BP systolic 104–191; BP diastolic 61–146; PULSE 59–95; RESP 14–27; TEMP 96.6–98.3; O2SAT 94–100
[2023-05-21 05:27] LABS: BASOPHILS # (AUTO) 0.1 K/uL (0.00-0.22); EOSINOPHILS # (AUTO) 0.3 K/uL (0-0.4); EOSINOPHILS % (AUTO) 6.3 % (0.0-4.0); HEMATOCRIT 29.3 % (36-52); HEMOGLOBIN 10.3 g/dL (12.0-18.0); LYMPHOCYTES # (AUTO) 1.6 K/uL (2.0-11.5); LYMPHOCYTES % (AUTO) 30.6 % (20.5-51.1); MEAN CORPUSCULAR HEMOGLOBIN 34 pg (27-31); MEAN CORPUSCULAR HGB CONC 35 g/dL (33-37); MEAN CORPUSCULAR VOLUME 97.1 fL (80-94); MONOCYTES # (AUTO) 0.6 K/uL (0.8-1.0); MONOCYTES % (AUTO) 11.1 % (1.7-9.3); NEUTROPHILS # (AUTO) 2.6 K/uL (1.8-7.7); PLATELET COUNT (AUTO) 107 K/uL (140-450); RED BLOOD CELL COUNT(AUTO) 3.02 MIL/uL (4.20-6.10); RED CELL DISTRIBUTION WIDTH 15.7 % (11.6-13.7); WHITE BLOOD COUNT (AUTO) 5.2 K/uL (4.8-10.8)
[2023-05-21 05:58] LABS: ALBUMIN 2.8 g/dL (3.4-5.0); ANION GAP 14.6 (8-16); CALCIUM 7.7 mg/dL (8.5-10.1); CARBON DIOXIDE 28.2 mmol/L (21-32); POTASSIUM 3.8 mmol/L (3.5-5.1); TOTAL BILIRUBIN 0.3 mg/dL (0.0-1.0); TOTAL PROTEIN, SERUM 5.8 g/dL (6.4-8.2)
[2023-05-21 06:04] LABS: CREATININE 7.7 mg/dL (0.6-1.3)
[2023-05-21] MEDS: CLONIDINE HYDROCHLORIDE 0.1 MG TAB PO PRN (15:11)
[2023-05-21] MEDS: IPRATROPIUM 0.02% 0.5 MG/2.5 ML NEBU INH PRN (19:13)
[2023-05-22] VITALS (23 sets, daily range): BP systolic 127–197; BP diastolic 75–148; PULSE 64–83; RESP 14–27; TEMP 96.5–98.5; O2SAT 97–100
[2023-05-22 06:07] LABS: BASOPHILS # (AUTO) 0.1 K/uL (0.00-0.22); EOSINOPHILS # (AUTO) 0.5 K/uL (0-0.4); EOSINOPHILS % (AUTO) 8.2 % (0.0-4.0); HEMATOCRIT 29.6 % (36-52); HEMOGLOBIN 10.3 g/dL (12.0-18.0); LYMPHOCYTES # (AUTO) 1.8 K/uL (2.0-11.5); LYMPHOCYTES % (AUTO) 32.1 % (20.5-51.1); MEAN CORPUSCULAR HEMOGLOBIN 34 pg (27-31); MEAN CORPUSCULAR HGB CONC 35 g/dL (33-37); MEAN CORPUSCULAR VOLUME 97.4 fL (80-94); MONOCYTES # (AUTO) 0.6 K/uL (0.8-1.0); MONOCYTES % (AUTO) 10.8 % (1.7-9.3); NEUTROPHILS # (AUTO) 2.7 K/uL (1.8-7.7); NEUTROPHILS % (AUTO) 46.9 % (42.2-75.2); PLATELET COUNT (AUTO) 96 K/uL (140-450); RED BLOOD CELL COUNT(AUTO) 3.04 MIL/uL (4.20-6.10); RED CELL DISTRIBUTION WIDTH 15.1 % (11.6-13.7); WHITE BLOOD COUNT (AUTO) 5.8 K/uL (4.8-10.8)
[2023-05-22 06:43] LABS: ALBUMIN 2.8 g/dL (3.4-5.0); ANION GAP 12.3 (8-16); CALCIUM 7.6 mg/dL (8.5-10.1); CARBON DIOXIDE 30.2 mmol/L (21-32); POTASSIUM 3.5 mmol/L (3.5-5.1); TOTAL BILIRUBIN 0.2 mg/dL (0.0-1.0)
[2023-05-22 06:48] LABS: CREATININE 6.2 mg/dL (0.6-1.3)
[2023-05-22] MEDS: NIFEdipine 30 MG TABER PO SCH (12:55)
[2023-05-22] MEDS: hydrALAZINE 25 MG TAB PO SCH (13:52)
[2023-05-22] MEDS: carvediloL 6.25 MG TAB PO SCH ×2 (15:04→15:14)
[2023-05-23] VITALS (13 sets, daily range): BP systolic 124–171; BP diastolic 72–113; PULSE 65–89; RESP 14–25; TEMP 97–98.8; O2SAT 84–100
[2023-05-23 06:10] LABS: BASOPHILS # (AUTO) 0.1 K/uL (0.00-0.22); BASOPHILS % (AUTO) 1.9 % (0.0-2.0); EOSINOPHILS # (AUTO) 0.4 K/uL (0-0.4); EOSINOPHILS % (AUTO) 7.8 % (0.0-4.0); HEMATOCRIT 31.9 % (36-52); HEMOGLOBIN 11.1 g/dL (12.0-18.0); LYMPHOCYTES # (AUTO) 1.9 K/uL (2.0-11.5); LYMPHOCYTES % (AUTO) 36.2 % (20.5-51.1); MEAN CORPUSCULAR HEMOGLOBIN 34 pg (27-31); MEAN CORPUSCULAR HGB CONC 35 g/dL (33-37); MEAN CORPUSCULAR VOLUME 97.9 fL (80-94); MONOCYTES # (AUTO) 0.5 K/uL (0.8-1.0); MONOCYTES % (AUTO) 9.3 % (1.7-9.3); NEUTROPHILS # (AUTO) 2.3 K/uL (1.8-7.7); NEUTROPHILS % (AUTO) 44.8 % (42.2-75.2); PLATELET COUNT (AUTO) 112 K/uL (140-450); RED BLOOD CELL COUNT(AUTO) 3.26 MIL/uL (4.20-6.10); RED CELL DISTRIBUTION WIDTH 15.6 % (11.6-13.7); WHITE BLOOD COUNT (AUTO) 5.2 K/uL (4.8-10.8)
[2023-05-23 06:33] LABS: ANION GAP 15.2 (8-16); CALCIUM 8.1 mg/dL (8.5-10.1); CARBON DIOXIDE 27.9 mmol/L (21-32); POTASSIUM 4.1 mmol/L (3.5-5.1); TOTAL BILIRUBIN 0.2 mg/dL (0.0-1.0); TOTAL PROTEIN, SERUM 6.5 g/dL (6.4-8.2)
[2023-05-23 06:36] LABS: CREATININE 8.4 mg/dL (0.6-1.3)
[2023-05-23] MEDS: LOSARTAN 50 MG TAB PO SCH (08:23)
[2023-05-23] MEDS: NIFEdipine 90 MG TABER PO SCH (08:24)
[2023-05-24 00:14] VITALS: PULSE 80
[2023-05-24 04:30] VITALS: BP 128/76; PULSE 82; RESP 20; TEMP 98.8; O2SAT 94
[2023-05-24 05:49] VITALS: PULSE 73
[2023-05-24 07:50] VITALS: O2SAT 96
[2023-05-24] MEDS ORDERED: CARV6.252 PO (11:13)
[2023-05-24] MEDS ORDERED: FURO-570 PO (11:13)
[2023-05-24] MEDS ORDERED: NIFE90TE63 PO (11:13)
[2023-05-24] MEDS ORDERED: LOSA-270 PO (11:13)
[2023-05-24] MEDS ORDERED: CLON-528 TD (11:13)
[2023-05-24] MEDS ORDERED: HYDR-5856 PO (11:13)
[2023-05-24 11:32] VITALS: BP 140/96; PULSE 75; RESP 18; TEMP 98.4
== END 2023-05-24 11:55 | disposition home or self-care (01) | DRG 194 ==
LOC: MED 03:43 → MIC 07:58 → MTU 07:58 → MIC 08:18 → MTU 05-23 16:30
PROVIDERS: ADMIT Family Medicine; ATTEND Family Medicine
PROC: 5A1D70Z Performance of Urinary Filtration, Intermittent, Less than 6 Hours Per Day (ICD-10-PCS; principal; 2023-05-19)
PROC: 5A09357 Assistance with Respiratory Ventilation, Less than 24 Consecutive Hours, Continuous Positive Airway Pressure (ICD-10-PCS; 2023-05-19)
PROC: B54NZZA Ultrasonography of Left Upper Extremity Veins, Guidance (ICD-10-PCS; 2023-05-19)
PROC: 05HY33Z Insertion of Infusion Device into Upper Vein, Percutaneous Approach (ICD-10-PCS; 2023-05-19)
PROC: 5A1D70Z Performance of Urinary Filtration, Intermittent, Less than 6 Hours Per Day (ICD-10-PCS; 2023-05-20)
PROC: 5A1D70Z Performance of Urinary Filtration, Intermittent, Less than 6 Hours Per Day (ICD-10-PCS; 2023-05-22)
DX: I13.2 Hypertensive heart and chronic kidney disease with heart failure and with stage 5 chronic kidney disease, or end stage renal disease (principal); J96.01 Acute respiratory failure with hypoxia; E44.1 Mild protein-calorie malnutrition; N18.6 End stage renal disease; E11.22 Type 2 diabetes mellitus with diabetic chronic kidney disease; D64.9 Anemia, unspecified; E11.65 Type 2 diabetes mellitus with hyperglycemia; I50.33 Acute on chronic diastolic (congestive) heart failure; F19.10 Other psychoactive substance abuse, uncomplicated; I16.1 Hypertensive emergency; Z99.2 Dependence on renal dialysis; Z91.199 Patient's noncompliance with other medical treatment and regimen due to unspecified reason; Z79.899 Other long term (current) drug therapy
CPT/HCPCS: 36415; 71045; 80048; 80053; 80076; 80305; 81001; 83036; 83605; 83880; 85025; 87040; 87081; 93005; 94640; 94660; 96365; 96367; 96375; 99285; C9113; J0360; J0696; J1644; J1940; J1956; J2060; J2543; J3490; J7060; J7613; J7644; Q0092

== ENCOUNTER 2023-06-02 22:20 | Inpatient (IN) | payer MEDICAID ==
[~2023-06-02] VITALS: Ht 172.7 cm; Wt 65.8 kg
[~2023-06-02 22:20] MED LIST changes: -AMLO10TA PO; -CARV3.122 PO; +CARV6.252 PO; +CLON-528 TD; -HYDR-1100 PO; +HYDR-5856 PO; -ISOS10TA9 PO; +LOSA-270 PO; +NIFE90TE63 PO
[2023-06-02 23:19] VITALS: BP 203/124; PULSE 65; RESP 20; TEMP 97.1; O2SAT 98
[2023-06-03] VITALS (8 sets, daily range): BP systolic 136–209; BP diastolic 72–128; PULSE 62–90; RESP 18–20; TEMP 97.2–98.2; O2SAT 94–99
[2023-06-03 00:03] LABS: BASOPHILS # (AUTO) 0.1 K/uL (0.00-0.22); BASOPHILS % (AUTO) 1.1 % (0.0-2.0); EOSINOPHILS # (AUTO) 0.2 K/uL (0-0.4); HEMATOCRIT 27.5 % (36-52); HEMOGLOBIN 9.6 g/dL (12.0-18.0); LYMPHOCYTES # (AUTO) 1.7 K/uL (2.0-11.5); LYMPHOCYTES % (AUTO) 22.3 % (20.5-51.1); MEAN CORPUSCULAR HEMOGLOBIN 34 pg (27-31); MEAN CORPUSCULAR HGB CONC 35 g/dL (33-37); MONOCYTES # (AUTO) 0.5 K/uL (0.8-1.0); MONOCYTES % (AUTO) 6.2 % (1.7-9.3); NEUTROPHILS # (AUTO) 5.1 K/uL (1.8-7.7); NEUTROPHILS % (AUTO) 67.4 % (42.2-75.2); PLATELET COUNT (AUTO) 120 K/uL (140-450); RED BLOOD CELL COUNT(AUTO) 2.87 MIL/uL (4.20-6.10); RED CELL DISTRIBUTION WIDTH 14.5 % (11.6-13.7); WHITE BLOOD COUNT (AUTO) 7.6 K/uL (4.8-10.8)
[2023-06-03 00:37] LABS: ANION GAP 20.4 (8-16); CALCIUM 7.5 mg/dL (8.5-10.1); CARBON DIOXIDE 22.3 mmol/L (21-32); POTASSIUM 4.7 mmol/L (3.5-5.1)
[2023-06-03 00:38] LABS: CREATININE 10.6 mg/dL (0.6-1.3)
[2023-06-03] MEDS: LORazepam 0.5 MG TAB PO ONE (01:50)
[2023-06-03] MEDS ORDERED: ONDANSETRON 4 MG/2 ML VIAL IVP PRN (03:40)
[2023-06-03] MEDS: hydrALAZINE 20 MG/ML VIAL IVP ONE (03:40)
[2023-06-03] MEDS ORDERED: ALBUTEROL 0.083% 2.5 MG/3 ML NEBU INH PRN (03:40)
[2023-06-03] MEDS ORDERED: ACETAMINOPHEN 325 MG TAB PO PRN (03:40)
[2023-06-03] MEDS ORDERED: LORazepam 2 MG/ML VIAL IVP PRN (03:40)
[2023-06-03] MEDS ORDERED: FUROSEMIDE 40 MG TAB PO PRN (03:45)
[2023-06-03] MEDS: LABETALOL 20 MG/4 ML VIAL IVP ONE (05:05)
[2023-06-03] MEDS: ENALAPRILAT 2.5 MG/2 ML VIAL IVP ONE (05:58)
[2023-06-03 06:37] LABS: ANION GAP 22.4 (8-16); CALCIUM 7.6 mg/dL (8.5-10.1); CARBON DIOXIDE 21.3 mmol/L (21-32); POTASSIUM 4.7 mmol/L (3.5-5.1)
[2023-06-03 06:40] LABS: CREATININE 10.8 mg/dL (0.6-1.3)
[2023-06-03] MEDS: LOSARTAN 50 MG TAB PO SCH (08:58)
[2023-06-03] MEDS: hydrALAZINE 25 MG TAB PO SCH (08:59)
[2023-06-03] MEDS: NIFEdipine 90 MG TABER PO SCH (09:01)
[2023-06-03] MEDS: carvediloL 6.25 MG TAB PO SCH (09:01)
[2023-06-03] MEDS: CLONIDINE HYDROCHLORIDE 0.1 MG TAB PO SCH (09:01)
[2023-06-03] MEDS: FUROSEMIDE 40 MG TAB PO SCH (09:03)
[2023-06-03] MEDS: ASPIRIN 81 MG TAB.CHEW PO SCH (09:05)
[2023-06-03] MEDS ORDERED: guaiFENesin 20 MG/ML UDC PO PRN (09:40)
[2023-06-03] MEDS ORDERED: hydrALAZINE 20 MG/ML VIAL IVP PRN (09:40)
[2023-06-03] MEDS: ATORVASTATIN 20 MG TAB PO SCH (23:13)
[2023-06-04] VITALS (7 sets, daily range): BP systolic 124–177; BP diastolic 89–110; PULSE 60–79; RESP 18–20; TEMP 97.3–98.4; O2SAT 94–99
[2023-06-04 06:46] LABS: BASOPHILS # (AUTO) 0.1 K/uL (0.00-0.22); BASOPHILS % (AUTO) 1.3 % (0.0-2.0); EOSINOPHILS # (AUTO) 0.3 K/uL (0-0.4); EOSINOPHILS % (AUTO) 3.4 % (0.0-4.0); HEMATOCRIT 33.9 % (36-52); HEMOGLOBIN 11.7 g/dL (12.0-18.0); LYMPHOCYTES # (AUTO) 2.9 K/uL (2.0-11.5); LYMPHOCYTES % (AUTO) 34.1 % (20.5-51.1); MEAN CORPUSCULAR HEMOGLOBIN 33 pg (27-31); MEAN CORPUSCULAR HGB CONC 35 g/dL (33-37); MEAN CORPUSCULAR VOLUME 96.4 fL (80-94); MONOCYTES # (AUTO) 0.7 K/uL (0.8-1.0); MONOCYTES % (AUTO) 8.3 % (1.7-9.3); NEUTROPHILS # (AUTO) 4.4 K/uL (1.8-7.7); NEUTROPHILS % (AUTO) 52.9 % (42.2-75.2); PLATELET COUNT (AUTO) 110 K/uL (140-450); RED BLOOD CELL COUNT(AUTO) 3.51 MIL/uL (4.20-6.10); RED CELL DISTRIBUTION WIDTH 14.8 % (11.6-13.7); WHITE BLOOD COUNT (AUTO) 8.4 K/uL (4.8-10.8)
[2023-06-04 07:14] LABS: CALCIUM 7.8 mg/dL (8.5-10.1); CARBON DIOXIDE 26.4 mmol/L (21-32); MAGNESIUM 2.2 mg/dL (1.8-2.4); PHOSPHORUS 4.9 mg/dL (2.5-4.9); POTASSIUM 4.4 mmol/L (3.5-5.1); TOTAL BILIRUBIN 0.4 mg/dL (0.0-1.0); TOTAL PROTEIN, SERUM 6.6 g/dL (6.4-8.2)
[2023-06-04 07:33] LABS: CREATININE 7.3 mg/dL (0.6-1.3)
[2023-07-28] MEDS ORDERED: HYDR-5856 PO (10:10)
== END 2023-06-04 14:15 | disposition home or self-care (01) | DRG 52 ==
LOC: MED 22:20 → MTU 06-03 03:41
PROVIDERS: ADMIT Family Medicine; ATTEND Family Medicine
PROC: 5A1D70Z Performance of Urinary Filtration, Intermittent, Less than 6 Hours Per Day (ICD-10-PCS; principal; 2023-06-03)
PROC: 5A1D70Z Performance of Urinary Filtration, Intermittent, Less than 6 Hours Per Day (ICD-10-PCS; 2023-06-03)
DX: I67.4 Hypertensive encephalopathy (principal); J96.01 Acute respiratory failure with hypoxia; I50.23 Acute on chronic systolic (congestive) heart failure; D63.8 Anemia in other chronic diseases classified elsewhere; N18.6 End stage renal disease; I13.2 Hypertensive heart and chronic kidney disease with heart failure and with stage 5 chronic kidney disease, or end stage renal disease; Z99.81 Dependence on supplemental oxygen; F14.10 Cocaine abuse, uncomplicated; Z99.2 Dependence on renal dialysis; Z79.82 Long term (current) use of aspirin; Z79.899 Other long term (current) drug therapy
CPT/HCPCS: 36415; 70450; 71045; 80048; 80053; 82803; 83735; 83880; 84100; 84484; 85025; 87081; 93005; 93307; 94760; 96374; 96375; 99291; G0482; J0360; J1644; J3490; Q0092; 90935

== ENCOUNTER 2023-06-18 03:25 | Inpatient (IN) | payer MEDICAID ==
[~2023-06-18] VITALS: Ht 172.7 cm; Wt 61.4 kg
[2023-06-18] VITALS (7 sets, daily range): BP systolic 134–175; BP diastolic 79–102; PULSE 90–99; RESP 20–25; TEMP 98–98.6; O2SAT 96–98
[2023-06-18] MEDS ORDERED: ASPIRIN 325 MG TAB ONE (05:33)
[2023-06-18] MEDS ORDERED: LORazepam 1 MG TAB ONE (05:34)
[2023-06-18 06:50] LABS: BASOPHILS # (AUTO) 0.1 K/uL (0.00-0.22); BASOPHILS % (AUTO) 1.2 % (0.0-2.0); EOSINOPHILS # (AUTO) 0.2 K/uL (0-0.4); EOSINOPHILS % (AUTO) 3.8 % (0.0-4.0); HEMOGLOBIN 10.5 g/dL (12.0-18.0); LYMPHOCYTES # (AUTO) 1.8 K/uL (2.0-11.5); LYMPHOCYTES % (AUTO) 28.8 % (20.5-51.1); MEAN CORPUSCULAR HEMOGLOBIN 33 pg (27-31); MEAN CORPUSCULAR HGB CONC 35 g/dL (33-37); MEAN CORPUSCULAR VOLUME 95.7 fL (80-94); MONOCYTES # (AUTO) 0.4 K/uL (0.8-1.0); MONOCYTES % (AUTO) 5.9 % (1.7-9.3); NEUTROPHILS # (AUTO) 3.7 K/uL (1.8-7.7); NEUTROPHILS % (AUTO) 60.3 % (42.2-75.2); PLATELET COUNT (AUTO) 275 K/uL (140-450); RED BLOOD CELL COUNT(AUTO) 3.14 MIL/uL (4.20-6.10); RED CELL DISTRIBUTION WIDTH 15.3 % (11.6-13.7); WHITE BLOOD COUNT (AUTO) 6.1 K/uL (4.8-10.8)
[2023-06-18 06:51] LABS: CARBON DIOXIDE 28.8 mmol/L (21-32); POTASSIUM 3.8 mmol/L (3.5-5.1)
[2023-06-18 08:18] LABS: CREATININE 9.8 mg/dL (0.6-1.3)
[2023-06-18] MEDS ORDERED: HYDROcodone/APAP 5/325 MG 1 TAB TAB PO PRN (09:10)
[2023-06-18] MEDS ORDERED: ACETAMINOPHEN 325 MG TAB PO PRN (09:10)
[2023-06-18] MEDS ORDERED: ALBUTEROL 0.083% 2.5 MG/3 ML NEBU INH PRN (09:10)
[2023-06-18] MEDS ORDERED: FUROSEMIDE 40 MG TAB PO PRN (09:25)
[2023-06-18 10:33] LABS: ALANINE AMINOTRANSFERASE 19 U/L (12-78); ALBUMIN 3.1 g/dL (3.4-5.0); ALKALINE PHOSPHATASE 58 U/L (50-136); ASPARTATE AMINOTRANSFERASE 26 U/L (15-37); BILIRUBIN,DIRECT 0.1 mg/dL (0.0-0.3); TOTAL BILIRUBIN 0.8 mg/dL (0.0-1.0); TOTAL PROTEIN, SERUM 6.7 g/dL (6.4-8.2)
[2023-06-18 10:51] LABS: ACETAMINOPHEN < 0.5 ug/ml (10-30); ALCOHOL, BLOOD < 3 mg/dL (<10); SALICYLATE 3.2 mg/dL (2.8-20.0)
[2023-06-18 11:13] LABS: CREATINE KINASE, TOTAL 138 U/L (39-308)
[2023-06-18] MEDS: hydrALAZINE 20 MG/ML VIAL IVP PRN (11:19)
[2023-06-18] MEDS: hydrALAZINE 25 MG TAB PO SCH (12:46)
[2023-06-18] MEDS: cloNIDine-TTS1 0.1 MG/24 HR 1 EA PATCH TD SCH (13:15)
[2023-06-18] MEDS: ONDANSETRON 4 MG/2 ML VIAL IVP PRN (13:54)
[2023-06-18 15:12] LABS: AMPHETAMINE, URINE NEGATIVE ng/ml (NEG <=1000); BARBITURATE, URINE NEGATIVE ng/ml (NEG <=200); BENZODIAZEPINE, URINE NEGATIVE ng/mL (NEG <=200)
[2023-06-18 15:13] LABS: CANNABINOID, URINE NEGATIVE ng/mL (NEG <=50); COCAINE, URINE POSITIVE ng/mL (NEG <=300); OPIATE, URINE NEGATIVE ng/mL (NEG <=2000); PHENCYCLIDINE SCREEN,URINE NEGATIVE ng/mL (NEG <=25)
[2023-06-18] MEDS: NICARDIPINE HYDROCHLORIDE 25 MG in NACL 0.9% 240 ML IV PRN (15:39)
[2023-06-18] MEDS ORDERED: NICARDIPINE HYDROCHLORIDE 2.5 MG/ML VIAL IV ONE ×2 (19:37→23:05)
[2023-06-18 19:57] LABS: FLU A ANTIGEN negative (NEGATIVE); FLU B ANTIGEN NEGATIVE (NEGATIVE)
[2023-06-18] MEDS: ATORVASTATIN 20 MG TAB PO SCH (21:00)
[2023-06-18] MEDS: FUROSEMIDE 40 MG TAB PO SCH (21:00)
[2023-06-18] MEDS: carvediloL 6.25 MG TAB PO SCH (21:00)
[2023-06-18] MEDS: NITROGLYCERIN 50 MG/D5W PREMIX 250 ML IV ONE (23:48)
[2023-06-19] VITALS (24 sets, daily range): BP systolic 108–191; BP diastolic 71–109; PULSE 69–95; RESP 13–29; TEMP 97.8–99.1; O2SAT 95–100
[2023-06-19 05:24] LABS: BASOPHILS # (AUTO) 0.1 K/uL (0.00-0.22); BASOPHILS % (AUTO) 1.1 % (0.0-2.0); EOSINOPHILS # (AUTO) 0.2 K/uL (0-0.4); EOSINOPHILS % (AUTO) 3.8 % (0.0-4.0); HEMATOCRIT 30.4 % (36-52); HEMOGLOBIN 10.6 g/dL (12.0-18.0); LYMPHOCYTES # (AUTO) 1.6 K/uL (2.0-11.5); LYMPHOCYTES % (AUTO) 25.6 % (20.5-51.1); MEAN CORPUSCULAR HEMOGLOBIN 34 pg (27-31); MEAN CORPUSCULAR HGB CONC 35 g/dL (33-37); MEAN CORPUSCULAR VOLUME 96.6 fL (80-94); MONOCYTES # (AUTO) 0.5 K/uL (0.8-1.0); MONOCYTES % (AUTO) 8.5 % (1.7-9.3); NEUTROPHILS # (AUTO) 3.8 K/uL (1.8-7.7); PLATELET COUNT (AUTO) 265 K/uL (140-450); RED BLOOD CELL COUNT(AUTO) 3.14 MIL/uL (4.20-6.10); RED CELL DISTRIBUTION WIDTH 15.5 % (11.6-13.7); WHITE BLOOD COUNT (AUTO) 6.2 K/uL (4.8-10.8)
[2023-06-19] MEDS: NITROGLYCERIN 50 MG/D5W PREMIX 250 ML IV PRN (06:05)
[2023-06-19 06:19] LABS: ALBUMIN 2.9 g/dL (3.4-5.0); ANION GAP 16.3 (8-16); CALCIUM 7.9 mg/dL (8.5-10.1); CARBON DIOXIDE 26.8 mmol/L (21-32); POTASSIUM 4.1 mmol/L (3.5-5.1); TOTAL BILIRUBIN 0.4 mg/dL (0.0-1.0); TOTAL PROTEIN, SERUM 6.5 g/dL (6.4-8.2)
[2023-06-19 07:03] LABS: CREATININE 6.3 mg/dL (0.6-1.3)
[2023-06-19] MEDS: NIFEdipine 90 MG TABER PO SCH (08:15)
[2023-06-19] MEDS: LOSARTAN 50 MG TAB PO SCH (08:16)
[2023-06-19] MEDS: ASPIRIN 81 MG TAB.CHEW PO SCH (08:16)
[2023-06-19] MEDS ORDERED: CLONIDINE HYDROCHLORIDE 0.1 MG TAB PO PRN ×2 (11:40→15:40)
[2023-06-19] MEDS: carvediloL 12.5 MG TAB PO SCH (20:46)
[2023-06-20] VITALS (17 sets, daily range): BP systolic 118–160; BP diastolic 67–100; PULSE 68–86; RESP 14–26; TEMP 97.7–98.6; O2SAT 95–100
[2023-06-20 05:22] LABS: BASOPHILS # (AUTO) 0.1 K/uL (0.00-0.22); BASOPHILS % (AUTO) 0.9 % (0.0-2.0); EOSINOPHILS # (AUTO) 0.2 K/uL (0-0.4); EOSINOPHILS % (AUTO) 3.2 % (0.0-4.0); HEMATOCRIT 26.6 % (36-52); HEMOGLOBIN 9.1 g/dL (12.0-18.0); LYMPHOCYTES # (AUTO) 1.7 K/uL (2.0-11.5); LYMPHOCYTES % (AUTO) 23.5 % (20.5-51.1); MEAN CORPUSCULAR HEMOGLOBIN 33 pg (27-31); MEAN CORPUSCULAR HGB CONC 34 g/dL (33-37); MEAN CORPUSCULAR VOLUME 97.3 fL (80-94); MONOCYTES # (AUTO) 0.7 K/uL (0.8-1.0); MONOCYTES % (AUTO) 9.5 % (1.7-9.3); NEUTROPHILS # (AUTO) 4.6 K/uL (1.8-7.7); NEUTROPHILS % (AUTO) 62.9 % (42.2-75.2); PLATELET COUNT (AUTO) 240 K/uL (140-450); RED BLOOD CELL COUNT(AUTO) 2.73 MIL/uL (4.20-6.10); RED CELL DISTRIBUTION WIDTH 15.8 % (11.6-13.7); WHITE BLOOD COUNT (AUTO) 7.3 K/uL (4.8-10.8)
[2023-06-20 05:24] LABS: ANION GAP 13.7 (8-16); CALCIUM 7.3 mg/dL (8.5-10.1); CARBON DIOXIDE 28.5 mmol/L (21-32); POTASSIUM 4.2 mmol/L (3.5-5.1)
[2023-06-20 05:52] LABS: CREATININE 8.4 mg/dL (0.6-1.3)
== END 2023-06-20 15:00 | disposition left against medical advice (07) | DRG 194 ==
LOC: MED 03:25 → MTU 09:10 → MIC 19:27
PROVIDERS: ADMIT Family Medicine; ATTEND Family Medicine
PROC: 5A1D70Z Performance of Urinary Filtration, Intermittent, Less than 6 Hours Per Day (ICD-10-PCS; principal; 2023-06-18)
PROC: 02HV33Z Insertion of Infusion Device into Superior Vena Cava, Percutaneous Approach (ICD-10-PCS; 2023-06-18)
PROC: B548ZZA Ultrasonography of Superior Vena Cava, Guidance (ICD-10-PCS; 2023-06-18)
PROC: 5A1D70Z Performance of Urinary Filtration, Intermittent, Less than 6 Hours Per Day (ICD-10-PCS; 2023-06-20)
DX: I13.2 Hypertensive heart and chronic kidney disease with heart failure and with stage 5 chronic kidney disease, or end stage renal disease (principal); I21.A1 Myocardial infarction type 2; E43 Unspecified severe protein-calorie malnutrition; N18.6 End stage renal disease; R65.10 Systemic inflammatory response syndrome (SIRS) of non-infectious origin without acute organ dysfunction; I16.0 Hypertensive urgency; I50.23 Acute on chronic systolic (congestive) heart failure; F14.129 Cocaine abuse with intoxication, unspecified; Z99.2 Dependence on renal dialysis; Z79.899 Other long term (current) drug therapy; Z68.20 Body mass index [BMI] 20.0-20.9, adult
CPT/HCPCS: 36415; 71045; 80048; 80053; 80076; 80305; 82550; 83880; 84484; 85025; 87081; 90935; 93005; 99285; G0480; G0482; J0360; J1644; J2405; J3490; J7030; Q0092

== ENCOUNTER 2023-08-16 00:26 | Inpatient (IN) | payer MEDICAID ==
[~2023-08-16] VITALS: Ht 172.7 cm; Wt 61.2 kg
[2023-08-16] VITALS (9 sets, daily range): BP systolic 136–162; BP diastolic 84–96; PULSE 64–85; RESP 18–20; TEMP 97.2–98.2; O2SAT 95–97
[2023-08-16 01:15] LABS: BASOPHILS # (AUTO) 0.1 K/uL (0.00-0.22); BASOPHILS % (AUTO) 1.3 % (0.0-2.0); EOSINOPHILS # (AUTO) 0.1 K/uL (0-0.4); EOSINOPHILS % (AUTO) 1.3 % (0.0-4.0); HEMATOCRIT 32.3 % (36-52); HEMOGLOBIN 11.3 g/dL (12.0-18.0); LYMPHOCYTES # (AUTO) 1.2 K/uL (2.0-11.5); LYMPHOCYTES % (AUTO) 15.9 % (20.5-51.1); MEAN CORPUSCULAR HEMOGLOBIN 33 pg (27-31); MEAN CORPUSCULAR HGB CONC 35 g/dL (33-37); MEAN CORPUSCULAR VOLUME 93.3 fL (80-94); MONOCYTES # (AUTO) 0.5 K/uL (0.8-1.0); MONOCYTES % (AUTO) 6.9 % (1.7-9.3); NEUTROPHILS # (AUTO) 5.7 K/uL (1.8-7.7); NEUTROPHILS % (AUTO) 74.6 % (42.2-75.2); PLATELET COUNT (AUTO) 114 K/uL (140-450); RED BLOOD CELL COUNT(AUTO) 3.46 MIL/uL (4.20-6.10); RED CELL DISTRIBUTION WIDTH 16.4 % (11.6-13.7); WHITE BLOOD COUNT (AUTO) 7.6 K/uL (4.8-10.8)
[2023-08-16] MEDS: NITROGLYCERIN 0.4 MG TAB SL ONE (01:21)
[2023-08-16] MEDS ORDERED: NITROGLYCERIN 0.4 MG TAB SL ONE (01:21)
[2023-08-16 01:26] LABS: ANION GAP 21.9 (8-16); CALCIUM 7.7 mg/dL (8.5-10.1); CARBON DIOXIDE 23.3 mmol/L (21-32); POTASSIUM 4.2 mmol/L (3.5-5.1)
[2023-08-16 01:33] LABS: CREATININE 13.6 mg/dL (0.6-1.3)
[2023-08-16] MEDS: NIFEdipine 30 MG TABER PO ONE (02:05)
[2023-08-16] MEDS ORDERED: ACETAMINOPHEN 325 MG TAB PO PRN (02:15)
[2023-08-16] MEDS ORDERED: MORPHINE SULFATE 4 MG/ML SYR IVP PRN (02:15)
[2023-08-16] MEDS: FUROSEMIDE 40 MG/4 ML VIAL IVP ONE (02:44)
[2023-08-16] MEDS: hydrALAZINE 20 MG/ML VIAL IVP PRN (05:16)
[2023-08-16] MEDS ORDERED: ALBUTEROL 0.083% 2.5 MG/3 ML NEBU INH PRN (07:55)
[2023-08-16] MEDS ORDERED: carvediloL 6.25 MG TAB PO SCH (09:00)
[2023-08-16] MEDS ORDERED: LOSARTAN 50 MG TAB PO SCH (09:00)
[2023-08-16] MEDS: ASPIRIN 81 MG TAB.CHEW PO SCH (12:59)
[2023-08-16] MEDS: ATORVASTATIN 20 MG TAB PO SCH (12:59)
[2023-08-16] MEDS: LOSARTAN 50 MG TAB PO SCH (13:00)
[2023-08-16] MEDS: hydrALAZINE 25 MG TAB PO SCH (13:00)
[2023-08-16] MEDS: FUROSEMIDE 40 MG TAB PO SCH (13:01)
[2023-08-16] MEDS: CLONIDINE HYDROCHLORIDE 0.1 MG TAB PO SCH (13:01)
[2023-08-16] MEDS: carvediloL 6.25 MG TAB PO SCH (13:02)
[2023-08-17] VITALS (11 sets, daily range): BP systolic 109–171; BP diastolic 51–97; PULSE 60–89; RESP 18–20; TEMP 97.3–98.6; O2SAT 95–99
[2023-08-17 06:53] LABS: BASOPHILS # (AUTO) 0.1 K/uL (0.00-0.22); BASOPHILS % (AUTO) 1.3 % (0.0-2.0); EOSINOPHILS # (AUTO) 0.1 K/uL (0-0.4); EOSINOPHILS % (AUTO) 1.6 % (0.0-4.0); HEMATOCRIT 35.4 % (36-52); HEMOGLOBIN 12.3 g/dL (12.0-18.0); LYMPHOCYTES # (AUTO) 1.7 K/uL (2.0-11.5); LYMPHOCYTES % (AUTO) 25.8 % (20.5-51.1); MEAN CORPUSCULAR HEMOGLOBIN 32 pg (27-31); MEAN CORPUSCULAR HGB CONC 35 g/dL (33-37); MEAN CORPUSCULAR VOLUME 92.2 fL (80-94); MONOCYTES # (AUTO) 0.7 K/uL (0.8-1.0); MONOCYTES % (AUTO) 10.7 % (1.7-9.3); NEUTROPHILS # (AUTO) 3.9 K/uL (1.8-7.7); NEUTROPHILS % (AUTO) 60.6 % (42.2-75.2); PLATELET COUNT (AUTO) 120 K/uL (140-450); RED BLOOD CELL COUNT(AUTO) 3.84 MIL/uL (4.20-6.10); RED CELL DISTRIBUTION WIDTH 16.2 % (11.6-13.7); WHITE BLOOD COUNT (AUTO) 6.4 K/uL (4.8-10.8)
[2023-08-17 07:34] LABS: ALBUMIN 2.8 g/dL (3.4-5.0); ANION GAP 16.9 (8-16); CALCIUM 7.4 mg/dL (8.5-10.1); CARBON DIOXIDE 26.3 mmol/L (21-32); POTASSIUM 4.2 mmol/L (3.5-5.1); TOTAL BILIRUBIN 0.4 mg/dL (0.0-1.0); TOTAL PROTEIN, SERUM 6.3 g/dL (6.4-8.2)
[2023-08-17 07:41] LABS: CREATININE 9.6 mg/dL (0.6-1.3)
[2023-08-17] MEDS: NIFEdipine 90 MG TABER PO SCH (08:43)
[2023-08-17] MEDS ORDERED: CLONIDINE HYDROCHLORIDE 0.1 MG TAB PO PRN (14:05)
[2023-08-17 23:33] LABS: AMPHETAMINE, URINE NEGATIVE ng/ml (NEG <=1000); BARBITURATE, URINE NEGATIVE ng/ml (NEG <=200); BENZODIAZEPINE, URINE NEGATIVE ng/mL (NEG <=200); COCAINE, URINE POSITIVE ng/mL (NEG <=300)
[2023-08-17 23:34] LABS: CANNABINOID, URINE NEGATIVE ng/mL (NEG <=50); OPIATE, URINE NEGATIVE ng/mL (NEG <=2000); PHENCYCLIDINE SCREEN,URINE NEGATIVE ng/mL (NEG <=25)
[2023-08-18] VITALS (7 sets, daily range): BP systolic 110–167; BP diastolic 65–100; PULSE 58–100; RESP 17–20; TEMP 97.3–98.5; O2SAT 95–98
[2023-08-18 06:43] LABS: BASOPHILS # (AUTO) 0.1 K/uL (0.00-0.22); BASOPHILS % (AUTO) 1.5 % (0.0-2.0); EOSINOPHILS # (AUTO) 0.2 K/uL (0-0.4); HEMATOCRIT 34.7 % (36-52); HEMOGLOBIN 11.9 g/dL (12.0-18.0); LYMPHOCYTES # (AUTO) 1.6 K/uL (2.0-11.5); LYMPHOCYTES % (AUTO) 20.5 % (20.5-51.1); MEAN CORPUSCULAR HEMOGLOBIN 32 pg (27-31); MEAN CORPUSCULAR HGB CONC 34 g/dL (33-37); MEAN CORPUSCULAR VOLUME 93.1 fL (80-94); MONOCYTES # (AUTO) 0.8 K/uL (0.8-1.0); MONOCYTES % (AUTO) 10.9 % (1.7-9.3); NEUTROPHILS % (AUTO) 65.1 % (42.2-75.2); PLATELET COUNT (AUTO) 114 K/uL (140-450); RED BLOOD CELL COUNT(AUTO) 3.73 MIL/uL (4.20-6.10); RED CELL DISTRIBUTION WIDTH 16.2 % (11.6-13.7); WHITE BLOOD COUNT (AUTO) 7.7 K/uL (4.8-10.8)
[2023-08-18 07:04] LABS: ALBUMIN 2.9 g/dL (3.4-5.0); ANION GAP 16.3 (8-16); CALCIUM 7.2 mg/dL (8.5-10.1); CARBON DIOXIDE 25.3 mmol/L (21-32); POTASSIUM 3.6 mmol/L (3.5-5.1); TOTAL BILIRUBIN 0.3 mg/dL (0.0-1.0); TOTAL PROTEIN, SERUM 6.5 g/dL (6.4-8.2)
[2023-08-18 07:14] LABS: CREATININE 6.8 mg/dL (0.6-1.3)
[2023-08-19] VITALS (7 sets, daily range): BP systolic 128–187; BP diastolic 66–103; PULSE 57–84; RESP 16–18; TEMP 97.3–98.2; O2SAT 97–100
[2023-08-19 12:04] LABS: BASOPHILS # (AUTO) 0.1 K/uL (0.00-0.22); EOSINOPHILS # (AUTO) 0.1 K/uL (0-0.4); EOSINOPHILS % (AUTO) 2.8 % (0.0-4.0); HEMATOCRIT 34.3 % (36-52); HEMOGLOBIN 11.8 g/dL (12.0-18.0); LYMPHOCYTES # (AUTO) 1.3 K/uL (2.0-11.5); LYMPHOCYTES % (AUTO) 26.8 % (20.5-51.1); MEAN CORPUSCULAR HEMOGLOBIN 32 pg (27-31); MEAN CORPUSCULAR HGB CONC 35 g/dL (33-37); MEAN CORPUSCULAR VOLUME 92.1 fL (80-94); MONOCYTES # (AUTO) 0.5 K/uL (0.8-1.0); NEUTROPHILS # (AUTO) 2.9 K/uL (1.8-7.7); NEUTROPHILS % (AUTO) 58.4 % (42.2-75.2); PLATELET COUNT (AUTO) 113 K/uL (140-450); RED BLOOD CELL COUNT(AUTO) 3.72 MIL/uL (4.20-6.10); RED CELL DISTRIBUTION WIDTH 16.1 % (11.6-13.7)
[2023-08-19 12:22] LABS: ALBUMIN 2.8 g/dL (3.4-5.0); ANION GAP 17.2 (8-16); CALCIUM 7.4 mg/dL (8.5-10.1); CARBON DIOXIDE 25.3 mmol/L (21-32); POTASSIUM 4.5 mmol/L (3.5-5.1); TOTAL BILIRUBIN 0.3 mg/dL (0.0-1.0); TOTAL PROTEIN, SERUM 6.3 g/dL (6.4-8.2)
[2023-08-19 12:35] LABS: CREATININE 9.2 mg/dL (0.6-1.3)
[2023-08-19] MEDS ORDERED: ASPI81CT95 PO (18:51)
[2023-08-19] MEDS ORDERED: ATOR20TA40 PO (18:51)
[2023-08-19] MEDS ORDERED: LOSA-270 PO (18:51)
[2023-08-19] MEDS ORDERED: NIFE90TE63 PO (18:51)
[2023-08-19] MEDS ORDERED: PRON INH (18:51)
[2023-08-19] MEDS ORDERED: CLON0.1T16 PO (18:51)
[2023-08-19] MEDS ORDERED: HYDR-5856 PO (18:51)
[2023-08-19] MEDS ORDERED: CARV6.252 PO (18:51)
[2023-08-19] MEDS ORDERED: FURO40TA9 PO (18:51)
[2023-08-20] VITALS: BP 143/88; PULSE 65; PULSE 67; RESP 18; TEMP 98.5; O2SAT 99
[2023-08-20 04:00] VITALS: BP 135/71; PULSE 63; RESP 18; TEMP 98; O2SAT 99
[2023-08-20 04:07] VITALS: PULSE 64
[2023-08-20 07:09] LABS: BASOPHILS # (AUTO) 0.1 K/uL (0.00-0.22); EOSINOPHILS # (AUTO) 0.2 K/uL (0-0.4); EOSINOPHILS % (AUTO) 3.5 % (0.0-4.0); HEMATOCRIT 32.1 % (36-52); HEMOGLOBIN 11.3 g/dL (12.0-18.0); LYMPHOCYTES # (AUTO) 1.5 K/uL (2.0-11.5); LYMPHOCYTES % (AUTO) 25.5 % (20.5-51.1); MEAN CORPUSCULAR HEMOGLOBIN 32 pg (27-31); MEAN CORPUSCULAR HGB CONC 35 g/dL (33-37); MEAN CORPUSCULAR VOLUME 91.6 fL (80-94); MONOCYTES # (AUTO) 0.6 K/uL (0.8-1.0); MONOCYTES % (AUTO) 9.5 % (1.7-9.3); NEUTROPHILS # (AUTO) 3.6 K/uL (1.8-7.7); NEUTROPHILS % (AUTO) 59.5 % (42.2-75.2); PLATELET COUNT (AUTO) 117 K/uL (140-450); RED CELL DISTRIBUTION WIDTH 15.8 % (11.6-13.7); WHITE BLOOD COUNT (AUTO) 6.1 K/uL (4.8-10.8)
[2023-08-20 07:33] LABS: ALBUMIN 2.8 g/dL (3.4-5.0); ANION GAP 16.7 (8-16); CALCIUM 7.2 mg/dL (8.5-10.1); CARBON DIOXIDE 25.5 mmol/L (21-32); POTASSIUM 4.2 mmol/L (3.5-5.1); TOTAL BILIRUBIN 0.2 mg/dL (0.0-1.0); TOTAL PROTEIN, SERUM 6.4 g/dL (6.4-8.2)
[2023-08-20 07:45] LABS: CREATININE 6.7 mg/dL (0.6-1.3)
[2023-08-20 08:00] VITALS: BP 146/109; PULSE 61; PULSE 65; RESP 18; TEMP 97.3; TEMP 97.9; O2SAT 9; O2SAT 98; O2SAT 99
[2023-08-20] MEDS: HYDROcodone/APAP 5/325 MG 1 TAB TAB PO PRN (08:56)
[2023-08-20 12:00] VITALS: BP 129/77; PULSE 65; RESP 17; TEMP 98.1; O2SAT 97
== END 2023-08-20 13:20 | disposition home or self-care (01) | DRG 194 ==
LOC: MED 00:26 → MTU 02:29
PROVIDERS: ADMIT Student in an Organized Health Care Education/Training Program; ATTEND Student in an Organized Health Care Education/Training Program
PROC: 5A1D70Z Performance of Urinary Filtration, Intermittent, Less than 6 Hours Per Day (ICD-10-PCS; principal; 2023-08-16)
PROC: 5A1D70Z Performance of Urinary Filtration, Intermittent, Less than 6 Hours Per Day (ICD-10-PCS; 2023-08-17)
PROC: 5A1D70Z Performance of Urinary Filtration, Intermittent, Less than 6 Hours Per Day (ICD-10-PCS; 2023-08-19)
PROC: 5A1D70Z Performance of Urinary Filtration, Intermittent, Less than 6 Hours Per Day (ICD-10-PCS; 2023-08-20)
DX: I13.2 Hypertensive heart and chronic kidney disease with heart failure and with stage 5 chronic kidney disease, or end stage renal disease (principal); N18.6 End stage renal disease; E44.1 Mild protein-calorie malnutrition; D63.1 Anemia in chronic kidney disease; I42.9 Cardiomyopathy, unspecified; I16.1 Hypertensive emergency; I50.23 Acute on chronic systolic (congestive) heart failure; E78.5 Hyperlipidemia, unspecified; F19.10 Other psychoactive substance abuse, uncomplicated; F14.90 Cocaine use, unspecified, uncomplicated; Z99.2 Dependence on renal dialysis; Z86.73 Personal history of transient ischemic attack (TIA), and cerebral infarction without residual deficits; Z87.891 Personal history of nicotine dependence; Z91.148 Patient's other noncompliance with medication regimen for other reason; Z68.20 Body mass index [BMI] 20.0-20.9, adult
CPT/HCPCS: 36415; 71045; 80048; 80053; 80305; 83880; 84484; 85025; 87081; 90935; 93005; 96374; 96375; 99291; J0360; J1644; J1940; Q0092

== ENCOUNTER 2023-09-14 03:06 | Inpatient (IN) | payer MEDICAID ==
[~2023-09-14] VITALS: Ht 167.6 cm; Wt 56.4 kg
[2023-09-14] VITALS (7 sets, daily range): BP systolic 158–240; BP diastolic 83–120; PULSE 60–95; RESP 16–18; TEMP 97–98.6; O2SAT 71–98
[2023-09-14] MEDS ORDERED: NITROGLYCERIN 0.4 MG TAB SL ONE (03:34)
[2023-09-14 03:41] LABS: BASOPHILS % (AUTO) 0.3 % (0.0-2.0); EOSINOPHILS # (AUTO) 0.2 K/uL (0-0.4); EOSINOPHILS % (AUTO) 2.6 % (0.0-4.0); HEMATOCRIT 27.9 % (36-52); HEMOGLOBIN 9.7 g/dL (12.0-18.0); LYMPHOCYTES # (AUTO) 2.2 K/uL (2.0-11.5); LYMPHOCYTES % (AUTO) 31.1 % (20.5-51.1); MEAN CORPUSCULAR HEMOGLOBIN 33 pg (27-31); MEAN CORPUSCULAR HGB CONC 35 g/dL (33-37); MEAN CORPUSCULAR VOLUME 93.6 fL (80-94); MONOCYTES # (AUTO) 0.6 K/uL (0.8-1.0); MONOCYTES % (AUTO) 8.2 % (1.7-9.3); NEUTROPHILS # (AUTO) 4.1 K/uL (1.8-7.7); NEUTROPHILS % (AUTO) 57.8 % (42.2-75.2); PLATELET COUNT (AUTO) 135 K/uL (140-450); RED BLOOD CELL COUNT(AUTO) 2.98 MIL/uL (4.20-6.10); RED CELL DISTRIBUTION WIDTH 16.3 % (11.6-13.7)
[2023-09-14] MEDS: NITROGLYCERIN 0.4 MG TAB SL ONE ×2 (03:46→05:30)
[2023-09-14 04:52] LABS: POTASSIUM 4.7 mmol/L (3.5-5.1)
[2023-09-14 04:53] LABS: ANION GAP 20.7 (8-16)
[2023-09-14 04:54] LABS: ALBUMIN 3.5 g/dL (3.4-5.0); TOTAL BILIRUBIN 0.5 mg/dL (0.0-1.0); TOTAL PROTEIN, SERUM 7.3 g/dL (6.4-8.2)
[2023-09-14 04:56] LABS: CREATININE 14.5 mg/dL (0.6-1.3)
[2023-09-14 05:31] LABS: LIPASE 157 U/L (16-77)
[2023-09-14] MEDS ORDERED: ALBUTEROL 0.083% 2.5 MG/3 ML NEBU INH PRN (05:40)
[2023-09-14] MEDS ORDERED: CLONIDINE HYDROCHLORIDE 0.1 MG TAB PO SCH (06:00)
[2023-09-14] MEDS: hydrALAZINE 25 MG TAB PO SCH (06:10)
[2023-09-14] MEDS: carvediloL 6.25 MG TAB PO SCH (06:22)
[2023-09-14 07:09] LABS: MAGNESIUM 2.3 mg/dL (1.8-2.4); PHOSPHORUS 8.3 mg/dL (2.5-4.9)
[2023-09-14] MEDS ORDERED: carvediloL 6.25 MG TAB PO SCH (09:00)
[2023-09-14] MEDS: LOSARTAN 50 MG TAB PO SCH (09:51)
[2023-09-14] MEDS: CLONIDINE HYDROCHLORIDE 0.1 MG TAB PO SCH (09:52)
[2023-09-14] MEDS: ASPIRIN 81 MG TAB.CHEW PO SCH (09:53)
[2023-09-14] MEDS: NIFEdipine 90 MG TABER PO SCH (10:01)
[2023-09-14] MEDS: LABETALOL 100 MG TAB PO SCH (12:51)
[2023-09-14] MEDS: hydrALAZINE 20 MG/ML VIAL IVP PRN (12:54)
[2023-09-14] MEDS ORDERED: cloNIDine-TTS2 0.2 MG/24 HR 1 EA PATCH TD SCH (13:10)
[2023-09-15] VITALS: BP 153/88; PULSE 62; PULSE 63; RESP 16; TEMP 97.4; O2SAT 98
[2023-09-15 04:00] VITALS: PULSE 65
[2023-09-15 07:21] LABS: BASOPHILS # (AUTO) 0.1 K/uL (0.00-0.22); BASOPHILS % (AUTO) 1.2 % (0.0-2.0); EOSINOPHILS # (AUTO) 0.2 K/uL (0-0.4); HEMOGLOBIN 10.4 g/dL (12.0-18.0); LYMPHOCYTES # (AUTO) 1.3 K/uL (2.0-11.5); MEAN CORPUSCULAR HEMOGLOBIN 32 pg (27-31); MEAN CORPUSCULAR HGB CONC 35 g/dL (33-37); MEAN CORPUSCULAR VOLUME 93.1 fL (80-94); MONOCYTES # (AUTO) 0.6 K/uL (0.8-1.0); MONOCYTES % (AUTO) 9.4 % (1.7-9.3); NEUTROPHILS # (AUTO) 3.9 K/uL (1.8-7.7); NEUTROPHILS % (AUTO) 64.4 % (42.2-75.2); PLATELET COUNT (AUTO) 77 K/uL (140-450); RED BLOOD CELL COUNT(AUTO) 3.22 MIL/uL (4.20-6.10); RED CELL DISTRIBUTION WIDTH 16.2 % (11.6-13.7)
[2023-09-15 07:30] LABS: ANION GAP 16.4 (8-16); CALCIUM 7.3 mg/dL (8.5-10.1); CARBON DIOXIDE 24.6 mmol/L (21-32)
[2023-09-15 07:33] LABS: CREATININE 9.8 mg/dL (0.6-1.3); PHOSPHORUS 5.1 mg/dL (2.5-4.9)
[2023-09-15 08:00] VITALS: BP 161/99; PULSE 58; PULSE 59; RESP 16; TEMP 98.3; O2SAT 98
[2023-09-15] MEDS: hydrALAZINE 25 MG TAB PO SCH (08:08)
[2023-09-15] MEDS ORDERED: cloNIDine-TTS2 0.2 MG/24 HR 1 EA PATCH TD SCH (09:00)
[2023-09-15] MEDS ORDERED: CLONIDINE HYDROCHLORIDE 0.1 MG TAB PO SCH (09:00)
[2023-09-15 12:00] VITALS: BP 114/72; PULSE 60; PULSE 61; RESP 16; TEMP 98.2; O2SAT 96
[2023-09-15] MEDS: cloNIDine-TTS2 0.2 MG/24 HR 1 EA PATCH TD SCH (13:20)
[2023-09-15 16:00] VITALS: BP 128/77; PULSE 61; PULSE 64; RESP 16; TEMP 98.2; O2SAT 97
[2023-09-15 20:00] VITALS: BP 118/69; PULSE 67; PULSE 72; RESP 18; TEMP 99.1; O2SAT 98
[2023-09-16] VITALS: BP 114/62; PULSE 68; PULSE 69; RESP 18; TEMP 98.9; O2SAT 98
[2023-09-16 04:00] VITALS: BP 123/66; PULSE 65; PULSE 71; RESP 18; TEMP 98.9; O2SAT 99
[2023-09-16] MEDS: cloNIDine-TTS1 0.1 MG/24 HR 1 EA PATCH TD SCH (09:00)
[2023-09-16 10:08] VITALS: BP 135/90; PULSE 89
[2023-09-24] MEDS ORDERED: ISOS20TA13 PO (00:58)
[2023-09-24] MEDS ORDERED: LON2.5 PO (00:58)
[2023-09-24] MEDS ORDERED: KEP500 PO (00:58)
[2023-09-24] MEDS ORDERED: ESCI10TA PO (00:58)
[2023-09-24] MEDS ORDERED: SPIR50TA PO (00:58)
== END 2023-09-16 14:10 | disposition left against medical advice (07) | DRG 194 ==
LOC: MED 03:06 → MTU 05:37
PROVIDERS: ADMIT Student in an Organized Health Care Education/Training Program; ATTEND Student in an Organized Health Care Education/Training Program
PROC: 5A1D70Z Performance of Urinary Filtration, Intermittent, Less than 6 Hours Per Day (ICD-10-PCS; principal; 2023-09-14)
DX: I13.2 Hypertensive heart and chronic kidney disease with heart failure and with stage 5 chronic kidney disease, or end stage renal disease (principal); N18.6 End stage renal disease; D63.1 Anemia in chronic kidney disease; I16.1 Hypertensive emergency; I50.23 Acute on chronic systolic (congestive) heart failure; N28.1 Cyst of kidney, acquired; F19.10 Other psychoactive substance abuse, uncomplicated; Z91.199 Patient's noncompliance with other medical treatment and regimen due to unspecified reason; Z79.899 Other long term (current) drug therapy
CPT/HCPCS: 36415; 71045; 76770; 80048; 80053; 83690; 83735; 83880; 84100; 84484; 85025; 87081; 90935; 99285; J0360; J1644; Q0092

== ENCOUNTER 2023-11-23 01:17 | Inpatient (IN) | payer MEDICAID ==
[~2023-11-23] VITALS: Ht 172.7 cm; Wt 68.0 kg
[2023-11-23] VITALS (10 sets, daily range): BP systolic 155–252; BP diastolic 99–132; PULSE 57–80; RESP 16–20; TEMP 96.5–98.8; O2SAT 96–99
[~2023-11-23 01:17] MED LIST changes: +ESCI10TA PO; +ISOS20TA13 PO; +KEP500 PO; +LON2.5 PO; +SPIR50TA PO
[2023-11-23] MEDS ORDERED: hydrALAZINE 20 MG/ML VIAL IVP ONE (01:30)
[2023-11-23] MEDS: HYDROcodone/APAP 5/325 MG 1 TAB TAB PO ONE (01:50)
[2023-11-23] MEDS: NITROGLYCERIN 2% 1 GM PKT TP ONE (01:51)
[2023-11-23 01:58] LABS: BASOPHILS # (AUTO) 0.1 K/uL (0.00-0.22); BASOPHILS % (AUTO) 1.8 % (0.0-2.0); EOSINOPHILS # (AUTO) 0.1 K/uL (0-0.4); EOSINOPHILS % (AUTO) 1.8 % (0.0-4.0); HEMATOCRIT 25.5 % (36-52); HEMOGLOBIN 8.7 g/dL (12.0-18.0); LYMPHOCYTES # (AUTO) 1.4 K/uL (2.0-11.5); LYMPHOCYTES % (AUTO) 23.2 % (20.5-51.1); MEAN CORPUSCULAR HEMOGLOBIN 33 pg (27-31); MEAN CORPUSCULAR HGB CONC 34 g/dL (33-37); MEAN CORPUSCULAR VOLUME 95.8 fL (80-94); MONOCYTES # (AUTO) 0.4 K/uL (0.8-1.0); MONOCYTES % (AUTO) 6.3 % (1.7-9.3); NEUTROPHILS % (AUTO) 66.9 % (42.2-75.2); RED BLOOD CELL COUNT(AUTO) 2.67 MIL/uL (4.20-6.10); RED CELL DISTRIBUTION WIDTH 15.3 % (11.6-13.7); WHITE BLOOD COUNT (AUTO) 5.9 K/uL (4.8-10.8)
[2023-11-23 02:10] LABS: ANION GAP 23.5 (8-16); CALCIUM 7.2 mg/dL (8.5-10.1); CARBON DIOXIDE 19.7 mmol/L (21-32); POTASSIUM 4.2 mmol/L (3.5-5.1)
[2023-11-23 02:18] LABS: MAGNESIUM 2.2 mg/dL (1.8-2.4); PHOSPHORUS 7.7 mg/dL (2.5-4.9)
[2023-11-23 02:21] LABS: PLATELET COUNT (AUTO) 39 K/uL (140-450)
[2023-11-23 02:23] LABS: CREATININE 17.1 mg/dL (0.6-1.3)
[2023-11-23] MEDS: hydrALAZINE 20 MG/ML VIAL IVP ONE (02:43)
[2023-11-23] MEDS: LORazepam 2 MG/ML VIAL IVP ONE (03:33)
[2023-11-23] MEDS: CLONIDINE HYDROCHLORIDE 0.1 MG TAB PO ONE (03:45)
[2023-11-23] MEDS: LABETALOL 20 MG/4 ML VIAL IVP ONE (03:55)
[2023-11-23] MEDS ORDERED: ONDANSETRON 4 MG/2 ML VIAL IVP PRN (05:25)
[2023-11-23] MEDS ORDERED: ACETAMINOPHEN 325 MG TAB PO PRN (05:25)
[2023-11-23] MEDS ORDERED: cloNIDine-TTS2 0.2 MG/24 HR 1 EA PATCH TD SCH (05:35)
[2023-11-23] MEDS ORDERED: ALBUTEROL 0.083% 2.5 MG/3 ML NEBU INH PRN (05:35)
[2023-11-23] MEDS: SPIRONOLACTONE 50 MG TAB PO SCH (09:00)
[2023-11-23] MEDS: CLONIDINE HYDROCHLORIDE 0.1 MG TAB PO SCH (09:00)
[2023-11-23] MEDS: levETIRAcetam 500 MG TAB PO SCH (09:00)
[2023-11-23] MEDS: LOSARTAN 50 MG TAB PO SCH (09:00)
[2023-11-23] MEDS: minoxidiL 2.5 MG TAB PO SCH (09:00)
[2023-11-23] MEDS: NIFEdipine 90 MG TABER PO SCH (09:00)
[2023-11-23] MEDS: ISOSORBIDE DINITRATE 20 MG TAB PO SCH (09:00)
[2023-11-23] MEDS: hydrALAZINE 25 MG TAB PO SCH (09:00)
[2023-11-23] MEDS: ESCITALOPRAM 20 MG TAB PO SCH (09:00)
[2023-11-23] MEDS: FUROSEMIDE 40 MG/4 ML VIAL IVP SCH (09:00)
[2023-11-23] MEDS: ASPIRIN 81 MG TAB.CHEW PO SCH (09:00)
[2023-11-23] MEDS: carvediloL 6.25 MG TAB PO SCH (09:00)
[2023-11-23] MEDS: ATORVASTATIN 20 MG TAB PO SCH (21:00)
[2023-11-24] VITALS (9 sets, daily range): BP systolic 156–186; BP diastolic 99–116; PULSE 61–78; RESP 17–20; TEMP 97.3–98; O2SAT 94–100
[2023-11-24] MEDS: hydrALAZINE 20 MG/ML VIAL IVP PRN (00:02)
[2023-11-24] MEDS ORDERED: cloNIDine-TTS2 0.2 MG/24 HR 1 EA PATCH TD SCH (00:24)
[2023-11-24] MEDS: cloNIDine-TTS2 0.2 MG/24 HR 1 EA PATCH TD SCH (05:30)
[2023-11-24] MEDS: VIT-B COMP/VIT-C/FOLIC ACID 1 TAB PO SCH (09:00)
== END 2023-11-24 17:31 | disposition left against medical advice (07) | DRG 194 ==
LOC: MED 01:17 → MTU 05:24
PROVIDERS: ADMIT Student in an Organized Health Care Education/Training Program; ATTEND Student in an Organized Health Care Education/Training Program
DX: I13.2 Hypertensive heart and chronic kidney disease with heart failure and with stage 5 chronic kidney disease, or end stage renal disease (principal); J96.00 Acute respiratory failure, unspecified whether with hypoxia or hypercapnia; N18.6 End stage renal disease; I50.23 Acute on chronic systolic (congestive) heart failure; D63.1 Anemia in chronic kidney disease; I16.1 Hypertensive emergency; Z99.2 Dependence on renal dialysis; Z79.899 Other long term (current) drug therapy; Z79.51 Long term (current) use of inhaled steroids; Z91.158 Patient's noncompliance with renal dialysis for other reason; Z79.82 Long term (current) use of aspirin
CPT/HCPCS: 36415; 71045; 80048; 83735; 83880; 84100; 84484; 85025; 87081; 93005; J0360; J1644; J1940; J2060; J3490; Q0092

== ENCOUNTER 2023-12-11 05:45 | Inpatient (IN) | payer MEDICAID ==
[~2023-12-11] VITALS: Ht 172.7 cm; Wt 59.0 kg
[2023-12-11 05:49] VITALS: BP 200/130; PULSE 89; RESP 22; TEMP 98.6; O2SAT 98
[2023-12-11] MEDS: LORazepam 1 MG TAB PO ONE (07:03)
[2023-12-11] MEDS: ENALAPRIL 10 MG TAB PO ONE (07:04)
[2023-12-11 07:56] LABS: BASOPHILS # (AUTO) 0.1 K/uL (0.00-0.22); BASOPHILS % (AUTO) 1.9 % (0.0-2.0); EOSINOPHILS # (AUTO) 0.2 K/uL (0-0.4); EOSINOPHILS % (AUTO) 2.8 % (0.0-4.0); LYMPHOCYTES # (AUTO) 1.1 K/uL (2.0-11.5); LYMPHOCYTES % (AUTO) 16.2 % (20.5-51.1); MEAN CORPUSCULAR HEMOGLOBIN 33 pg (27-31); MEAN CORPUSCULAR HGB CONC 35 g/dL (33-37); MEAN CORPUSCULAR VOLUME 95.1 fL (80-94); MONOCYTES # (AUTO) 0.3 K/uL (0.8-1.0); NEUTROPHILS # (AUTO) 5.1 K/uL (1.8-7.7); NEUTROPHILS % (AUTO) 75.1 % (42.2-75.2); PLATELET COUNT (AUTO) 133 K/uL (140-450); RED BLOOD CELL COUNT(AUTO) 2.73 MIL/uL (4.20-6.10); RED CELL DISTRIBUTION WIDTH 14.9 % (11.6-13.7); WHITE BLOOD COUNT (AUTO) 6.8 K/uL (4.8-10.8)
[2023-12-11 08:12] LABS: ANION GAP 19.1 (8-16); CALCIUM 7.1 mg/dL (8.5-10.1); CARBON DIOXIDE 21.4 mmol/L (21-32); POTASSIUM 5.5 mmol/L (3.5-5.1)
[2023-12-11 08:14] LABS: CREATININE 10.8 mg/dL (0.6-1.3)
[2023-12-11 08:25] LABS: INR 0.97 (0.8-1.2); PARTIAL THROMBOPLASTIN TIME 25.9 secs (22-35.6); PROTHROMBIN TIME 10.2 secs (10.8-13.4)
[2023-12-11 08:54] VITALS: O2SAT 97
[2023-12-11] MEDS ORDERED: HYDROcodone/APAP 5/325 MG 1 TAB TAB PO PRN (09:00)
[2023-12-11] MEDS ORDERED: ONDANSETRON 4 MG/2 ML VIAL IVP PRN (09:00)
[2023-12-11] MEDS ORDERED: POTASSIUM CHLORIDE 10 MEQ TABER PO PRN (09:00)
[2023-12-11] MEDS ORDERED: MAG SULF 2000 MG/WATER PREMIX 50 ML IV PRN (09:00)
[2023-12-11] MEDS ORDERED: MAGNESIUM OXIDE 400 MG TAB PO PRN (09:00)
[2023-12-11] MEDS ORDERED: KCL 20 MEQ IN 100 mL PREMIX 200 ML IV PRN (09:00)
[2023-12-11] MEDS ORDERED: ACETAMINOPHEN 325 MG TAB PO PRN (09:00)
[2023-12-11] MEDS: hydrALAZINE 25 MG TAB PO SCH (13:00)
[2023-12-11 15:18] VITALS: RESP 23; O2SAT 93
[2023-12-11 16:00] VITALS: BP 157/91; PULSE 72; PULSE 74; RESP 23; TEMP 97.9; O2SAT 93
[2023-12-11] MEDS: CLONIDINE HYDROCHLORIDE 0.1 MG TAB PO PRN (18:05)
[2023-12-11 19:55] VITALS: PULSE 80
[2023-12-11 20:00] VITALS: BP 181/112; PULSE 85; RESP 21; RESP 23; TEMP 97.6; O2SAT 100
[2023-12-11] MEDS: levETIRAcetam 500 MG TAB PO SCH (20:28)
[2023-12-11] MEDS: carvediloL 6.25 MG TAB PO SCH (20:28)
[2023-12-12] VITALS (8 sets, daily range): BP systolic 162–181; BP diastolic 92–115; PULSE 64–79; RESP 20–21; TEMP 97.6–98.3; O2SAT 94–100
[2023-12-12 06:11] LABS: BASOPHILS # (AUTO) 0.1 K/uL (0.00-0.22); EOSINOPHILS # (AUTO) 0.2 K/uL (0-0.4); EOSINOPHILS % (AUTO) 3.4 % (0.0-4.0); HEMATOCRIT 22.4 % (36-52); HEMOGLOBIN 7.7 g/dL (12.0-18.0); LYMPHOCYTES # (AUTO) 0.8 K/uL (2.0-11.5); LYMPHOCYTES % (AUTO) 18.6 % (20.5-51.1); MEAN CORPUSCULAR HEMOGLOBIN 33 pg (27-31); MEAN CORPUSCULAR HGB CONC 34 g/dL (33-37); MEAN CORPUSCULAR VOLUME 95.2 fL (80-94); MONOCYTES # (AUTO) 0.3 K/uL (0.8-1.0); MONOCYTES % (AUTO) 6.7 % (1.7-9.3); NEUTROPHILS # (AUTO) 3.2 K/uL (1.8-7.7); NEUTROPHILS % (AUTO) 69.3 % (42.2-75.2); PLATELET COUNT (AUTO) 98 K/uL (140-450); RED BLOOD CELL COUNT(AUTO) 2.36 MIL/uL (4.20-6.10); RED CELL DISTRIBUTION WIDTH 14.5 % (11.6-13.7); WHITE BLOOD COUNT (AUTO) 4.6 K/uL (4.8-10.8)
[2023-12-12 06:45] LABS: CHOL/HDL RATIO 2.9 (1-4.5)
[2023-12-12 07:08] LABS: HEPATITIS A ANTIBODY IGM Negative (Negative); HEPATITIS B CORE AB TOTAL Negative (Negative); HEPATITIS B CORE, IGM Negative (Negative); HEPATITIS B SURFACE ANTIBODY Reactive (.); HEPATITIS B SURFACE ANTIGEN Negative (Negative)
[2023-12-12 07:16] LABS: ALBUMIN 2.4 g/dL (3.4-5.0); ANION GAP 15.2 (8-16); CALCIUM 7.2 mg/dL (8.5-10.1); CARBON DIOXIDE 25.4 mmol/L (21-32); POTASSIUM 4.6 mmol/L (3.5-5.1); TOTAL BILIRUBIN 0.2 mg/dL (0.0-1.0); TOTAL PROTEIN, SERUM 5.5 g/dL (6.4-8.2)
[2023-12-12 07:17] LABS: CREATININE 7.4 mg/dL (0.6-1.3)
[2023-12-12] MEDS: ASPIRIN 81 MG TAB.CHEW PO SCH (09:00)
[2023-12-12] MEDS: SPIRONOLACTONE 50 MG TAB PO SCH (09:14)
[2023-12-12] MEDS: ATORVASTATIN 20 MG TAB PO SCH (09:14)
[2023-12-12] MEDS: LOSARTAN 50 MG TAB PO SCH (09:15)
[2023-12-12] MEDS: FUROSEMIDE 40 MG/4 ML VIAL IVP SCH (09:16)
[2023-12-12] MEDS: ESCITALOPRAM 20 MG TAB PO SCH (09:16)
[2023-12-12] MEDS: EPOETIN ALFA-EPBX 10,000 UNITS/ML VIAL IV SCH (09:17)
[2023-12-12 10:05] LABS: HEPATITIS A ANTIBODY TOTAL Positive (Negative); HEPATITIS C VIRUS ANTIBODY Reactive s/co rat (0.00 - 0.9)
[2023-12-13] VITALS (7 sets, daily range): BP systolic 152–195; BP diastolic 65–117; PULSE 61–80; RESP 17–21; TEMP 97.7–98.8; O2SAT 94–98
[2023-12-13 05:40] LABS: BASOPHILS # (AUTO) 0.1 K/uL (0.00-0.22); BASOPHILS % (AUTO) 3.6 % (0.0-2.0); EOSINOPHILS # (AUTO) 0.1 K/uL (0-0.4); HEMATOCRIT 21.9 % (36-52); HEMOGLOBIN 7.6 g/dL (12.0-18.0); MEAN CORPUSCULAR HEMOGLOBIN 33 pg (27-31); MEAN CORPUSCULAR HGB CONC 35 g/dL (33-37); MEAN CORPUSCULAR VOLUME 95.4 fL (80-94); MONOCYTES # (AUTO) 0.3 K/uL (0.8-1.0); MONOCYTES % (AUTO) 9.4 % (1.7-9.3); PLATELET COUNT (AUTO) 82 K/uL (140-450); RED CELL DISTRIBUTION WIDTH 14.7 % (11.6-13.7); WHITE BLOOD COUNT (AUTO) 3.6 K/uL (4.8-10.8)
[2023-12-13 06:02] LABS: ALBUMIN 2.2 g/dL (3.4-5.0); ANION GAP 11.1 (8-16); CARBON DIOXIDE 29.8 mmol/L (21-32); POTASSIUM 3.9 mmol/L (3.5-5.1); TOTAL BILIRUBIN 0.2 mg/dL (0.0-1.0); TOTAL PROTEIN, SERUM 5.2 g/dL (6.4-8.2)
[2023-12-13 06:15] LABS: CREATININE 5.5 mg/dL (0.6-1.3)
[2023-12-13] MEDS: CRUSHER, PILL MC ONE (09:58)
[2023-12-13] MEDS ORDERED: hydrALAZINE 20 MG/ML VIAL IVP PRN (10:35)
[2023-12-13] MEDS: BENZOCAINE/MENTHOL 1 LOZ MM PRN (16:02)
[2023-12-14] MEDS ORDERED: EPOETIN ALFA-EPBX 10,000 UNITS/ML VIAL SUBQ SCH (09:00)
== END 2023-12-13 20:53 | disposition left against medical advice (07) | DRG 194 ==
LOC: MED 05:45 → MTU 09:15 → MMU 11:44
PROVIDERS: ADMIT Student in an Organized Health Care Education/Training Program; ATTEND Student in an Organized Health Care Education/Training Program
PROC: 06HY33Z Insertion of Infusion Device into Lower Vein, Percutaneous Approach (ICD-10-PCS; principal; 2023-12-11)
PROC: B54BZZA Ultrasonography of Right Lower Extremity Veins, Guidance (ICD-10-PCS; 2023-12-11)
PROC: 5A1D70Z Performance of Urinary Filtration, Intermittent, Less than 6 Hours Per Day (ICD-10-PCS; 2023-12-11)
PROC: 5A1D70Z Performance of Urinary Filtration, Intermittent, Less than 6 Hours Per Day (ICD-10-PCS; 2023-12-11)
DX: I13.2 Hypertensive heart and chronic kidney disease with heart failure and with stage 5 chronic kidney disease, or end stage renal disease (principal); J96.01 Acute respiratory failure with hypoxia; D69.6 Thrombocytopenia, unspecified; E44.0 Moderate protein-calorie malnutrition; I42.9 Cardiomyopathy, unspecified; D63.1 Anemia in chronic kidney disease; E83.39 Other disorders of phosphorus metabolism; N18.6 End stage renal disease; I16.1 Hypertensive emergency; I50.23 Acute on chronic systolic (congestive) heart failure; E83.51 Hypocalcemia; E87.70 Fluid overload, unspecified; E87.5 Hyperkalemia; Z99.2 Dependence on renal dialysis; F19.10 Other psychoactive substance abuse, uncomplicated; Z91.158 Patient's noncompliance with renal dialysis for other reason; F17.210 Nicotine dependence, cigarettes, uncomplicated; F41.9 Anxiety disorder, unspecified; Z53.29 Procedure and treatment not carried out because of patient's decision for other reasons; Z86.73 Personal history of transient ischemic attack (TIA), and cerebral infarction without residual deficits; Z68.1 Body mass index [BMI] 19.9 or less, adult
CPT/HCPCS: 36415; 36556; 71045; 80048; 80053; 83036; 83880; 84484; 85025; 85610; 85730; 86704; 86706; 86708; 86709; 86803; 87340; 90935; 93005; 99285; C1751; J1644; J1940; Q0092; Q5106

== ENCOUNTER 2023-12-14 08:02 | Emergency (ER) | payer MEDICAID ==
[~2023-12-14] VITALS: Ht 165.1 cm; Wt 58.5 kg
[~2023-12-14 08:02] MED LIST changes: -ALBU0.0912 INH; -CLON-528 TD; -NEBU1EAC30 MC
[2023-12-14 08:34] VITALS: BP 221/133; PULSE 58; RESP 18; TEMP 97.5; O2SAT 98
[2023-12-14 10:41] LABS: HEMOGLOBIN 8.8 g/dL (12.0-18.0); MEAN CORPUSCULAR HGB CONC 35 g/dL (33-37); PLATELET COUNT (AUTO) 90 K/uL (140-450); RED BLOOD CELL COUNT(AUTO) 2.66 MIL/uL (4.20-6.10); WHITE BLOOD COUNT (AUTO) 4.3 K/uL (4.8-10.8)
[2023-12-14 10:44] LABS: BASOPHILS # (AUTO) 0.2 K/uL (0.00-0.22); BASOPHILS % (AUTO) 4.1 % (0.0-2.0); EOSINOPHILS # (AUTO) 0.2 K/uL (0-0.4); EOSINOPHILS % (AUTO) 5.4 % (0.0-4.0); HEMATOCRIT 25.4 % (36-52); LYMPHOCYTES # (AUTO) 0.7 K/uL (2.0-11.5); LYMPHOCYTES % (AUTO) 16.7 % (20.5-51.1); MEAN CORPUSCULAR HEMOGLOBIN 33 pg (27-31); MEAN CORPUSCULAR VOLUME 95.2 fL (80-94); MONOCYTES # (AUTO) 0.3 K/uL (0.8-1.0); MONOCYTES % (AUTO) 7.8 % (1.7-9.3); NEUTROPHILS # (AUTO) 2.8 K/uL (1.8-7.7); RED CELL DISTRIBUTION WIDTH 15.1 % (11.6-13.7)
[2023-12-14 10:53] LABS: ANION GAP 14.7 (8-16); CALCIUM 7.1 mg/dL (8.5-10.1); CARBON DIOXIDE 26.3 mmol/L (21-32)
[2023-12-14 10:57] LABS: CREATININE 7.4 mg/dL (0.6-1.3)
[2023-12-14] MEDS: SPIRONOLACTONE 50 MG TAB PO ONE (12:08)
[2023-12-14] MEDS: LOSARTAN 50 MG TAB PO ONE (12:09)
[2023-12-14 12:10] VITALS: BP 205/133
== END 2023-12-14 12:10 | disposition home or self-care (01) ==
LOC: MED 08:02
DX: I13.2 Hypertensive heart and chronic kidney disease with heart failure and with stage 5 chronic kidney disease, or end stage renal disease (principal); N18.6 End stage renal disease; I50.9 Heart failure, unspecified; Z99.2 Dependence on renal dialysis; Z91.148 Patient's other noncompliance with medication regimen for other reason; Z86.73 Personal history of transient ischemic attack (TIA), and cerebral infarction without residual deficits; Z79.899 Other long term (current) drug therapy
CPT/HCPCS: 36415; 80048; 85025; 93005; 99284

== ENCOUNTER 2023-12-16 10:34 | Inpatient (IN) | payer MEDICAID ==
[~2023-12-16] VITALS: Ht 172.7 cm; Wt 61.2 kg
[2023-12-16 10:38] VITALS: BP 220/144; PULSE 75; RESP 21; TEMP 97.9; O2SAT 98
[2023-12-16 11:14] LABS: BASOPHILS # (AUTO) 0.1 K/uL (0.00-0.22); BASOPHILS % (AUTO) 2.2 % (0.0-2.0); EOSINOPHILS # (AUTO) 0.1 K/uL (0-0.4); EOSINOPHILS % (AUTO) 2.9 % (0.0-4.0); HEMATOCRIT 24.6 % (36-52); HEMOGLOBIN 8.4 g/dL (12.0-18.0); LYMPHOCYTES % (AUTO) 23.4 % (20.5-51.1); MEAN CORPUSCULAR HEMOGLOBIN 33 pg (27-31); MEAN CORPUSCULAR HGB CONC 34 g/dL (33-37); MEAN CORPUSCULAR VOLUME 96.7 fL (80-94); MONOCYTES # (AUTO) 0.4 K/uL (0.8-1.0); MONOCYTES % (AUTO) 9.6 % (1.7-9.3); NEUTROPHILS # (AUTO) 2.7 K/uL (1.8-7.7); NEUTROPHILS % (AUTO) 61.9 % (42.2-75.2); PLATELET COUNT (AUTO) 122 K/uL (140-450); RED BLOOD CELL COUNT(AUTO) 2.55 MIL/uL (4.20-6.10); RED CELL DISTRIBUTION WIDTH 15.1 % (11.6-13.7); WHITE BLOOD COUNT (AUTO) 4.4 K/uL (4.8-10.8)
[2023-12-16] MEDS: SPIRONOLACTONE 50 MG TAB PO ONE (11:43)
[2023-12-16] MEDS: LOSARTAN 50 MG TAB PO ONE (11:44)
[2023-12-16 11:46] LABS: ANION GAP 17.6 (8-16); CALCIUM 7.3 mg/dL (8.5-10.1); POTASSIUM 4.6 mmol/L (3.5-5.1)
[2023-12-16 11:48] LABS: CREATININE 10.5 mg/dL (0.6-1.3); INR 1.02 (0.8-1.2); PARTIAL THROMBOPLASTIN TIME 24.5 secs (22-35.6); PROTHROMBIN TIME 10.7 secs (10.8-13.4)
[2023-12-16] MEDS ORDERED: ONDANSETRON 4 MG/2 ML VIAL IVP PRN (13:50)
[2023-12-16] MEDS ORDERED: ACETAMINOPHEN 325 MG TAB PO PRN (13:50)
[2023-12-16] MEDS ORDERED: MAGNESIUM OXIDE 400 MG TAB PO PRN (13:50)
[2023-12-16] MEDS ORDERED: POTASSIUM CHLORIDE 10 MEQ TABER PO PRN (13:50)
[2023-12-16 15:00] VITALS: PULSE 72; RESP 20; O2SAT 99
[2023-12-16] MEDS: hydrALAZINE 20 MG/ML VIAL IVP PRN (15:11)
[2023-12-16] MEDS: hydrALAZINE 25 MG TAB PO SCH (17:14)
[2023-12-16 20:00] VITALS: BP 213/127; PULSE 77; PULSE 78; RESP 19; TEMP 97.5; O2SAT 96
[2023-12-16] MEDS: carvediloL 6.25 MG TAB PO SCH (22:46)
[2023-12-16] MEDS: levETIRAcetam 500 MG TAB PO SCH (22:46)
[2023-12-16] MEDS: ZOLPIDEM 5 MG TAB PO PRN (23:16)
[2023-12-17] VITALS: BP 214/128; PULSE 68; RESP 22; TEMP 97.2; O2SAT 96
[2023-12-17 04:00] VITALS: BP 211/119; PULSE 65; PULSE 76; RESP 20; TEMP 97.8; O2SAT 95
[2023-12-17 08:00] VITALS: BP 207/123; PULSE 66; PULSE 70; RESP 20; TEMP 98.5; O2SAT 97
[2023-12-17] MEDS ORDERED: SPIRONOLACTONE 50 MG TAB PO SCH (09:00)
[2023-12-17] MEDS: ESCITALOPRAM 20 MG TAB PO SCH (10:04)
[2023-12-17] MEDS: ATORVASTATIN 20 MG TAB PO SCH (10:05)
[2023-12-17] MEDS: ASPIRIN 81 MG TAB.CHEW PO SCH (10:05)
[2023-12-17] MEDS: NIFEdipine 90 MG TABER PO SCH (10:06)
[2023-12-17] MEDS: LOSARTAN 50 MG TAB PO SCH (10:06)
[2023-12-17] MEDS: FUROSEMIDE 40 MG/4 ML VIAL IVP SCH (10:13)
[2023-12-17 11:33] LABS: BASOPHILS # (AUTO) 0.1 K/uL (0.00-0.22); BASOPHILS % (AUTO) 2.2 % (0.0-2.0); EOSINOPHILS # (AUTO) 0.1 K/uL (0-0.4); EOSINOPHILS % (AUTO) 3.2 % (0.0-4.0); HEMATOCRIT 26.3 % (36-52); HEMOGLOBIN 8.9 g/dL (12.0-18.0); LYMPHOCYTES # (AUTO) 0.9 K/uL (2.0-11.5); LYMPHOCYTES % (AUTO) 22.1 % (20.5-51.1); MEAN CORPUSCULAR HEMOGLOBIN 33 pg (27-31); MEAN CORPUSCULAR HGB CONC 34 g/dL (33-37); MEAN CORPUSCULAR VOLUME 96.8 fL (80-94); MONOCYTES # (AUTO) 0.5 K/uL (0.8-1.0); MONOCYTES % (AUTO) 11.6 % (1.7-9.3); NEUTROPHILS # (AUTO) 2.5 K/uL (1.8-7.7); NEUTROPHILS % (AUTO) 60.9 % (42.2-75.2); PLATELET COUNT (AUTO) 131 K/uL (140-450); RED BLOOD CELL COUNT(AUTO) 2.72 MIL/uL (4.20-6.10); RED CELL DISTRIBUTION WIDTH 15.2 % (11.6-13.7); WHITE BLOOD COUNT (AUTO) 4.1 K/uL (4.8-10.8)
[2023-12-17] MEDS: ENALAPRIL 10 MG TAB PO SCH (11:45)
[2023-12-17 11:53] LABS: ALBUMIN 2.6 g/dL (3.4-5.0); ANION GAP 12.5 (8-16); CALCIUM 7.1 mg/dL (8.5-10.1); CARBON DIOXIDE 28.7 mmol/L (21-32); MAGNESIUM 1.9 mg/dL (1.8-2.4); PHOSPHORUS 5.1 mg/dL (2.5-4.9); POTASSIUM 4.2 mmol/L (3.5-5.1); TOTAL BILIRUBIN 0.3 mg/dL (0.0-1.0); TOTAL PROTEIN, SERUM 5.9 g/dL (6.4-8.2)
[2023-12-17 12:00] VITALS: BP 199/124; PULSE 68; PULSE 72; RESP 20; TEMP 98.3; O2SAT 98
[2023-12-17 16:00] VITALS: BP 185/118; PULSE 72; PULSE 77; RESP 20; TEMP 98.4; O2SAT 98
[2023-12-17 20:00] VITALS: BP 168/90; PULSE 75; PULSE 78; RESP 19; TEMP 97.9; O2SAT 95; O2SAT 98
[2023-12-18] VITALS: BP 162/98; PULSE 70; PULSE 71; RESP 19; TEMP 98.6; O2SAT 98
[2023-12-18 04:00] VITALS: BP 157/92; PULSE 72; PULSE 76; RESP 18; TEMP 98.8; O2SAT 98
[2023-12-18 06:33] LABS: AMPHETAMINE, URINE NEGATIVE ng/ml (NEG <=1000); BARBITURATE, URINE NEGATIVE ng/ml (NEG <=200); BENZODIAZEPINE, URINE POSITIVE ng/mL (NEG <=200); CANNABINOID, URINE NEGATIVE ng/mL (NEG <=50); COCAINE, URINE POSITIVE ng/mL (NEG <=300); OPIATE, URINE NEGATIVE ng/mL (NEG <=2000); PHENCYCLIDINE SCREEN,URINE NEGATIVE ng/mL (NEG <=25)
[2023-12-18 08:00] VITALS: BP 200/119; PULSE 75; PULSE 77; PULSE 78; RESP 18; RESP 19; TEMP 98.4; O2SAT 95; O2SAT 98
[2023-12-18 16:00] VITALS: BP 160/95; PULSE 76; TEMP 98.4; O2SAT 97
[2023-12-18 18:23] LABS: ALBUMIN 2.5 g/dL (3.4-5.0); ANION GAP 13.9 (8-16); CALCIUM 7.1 mg/dL (8.5-10.1); CARBON DIOXIDE 26.5 mmol/L (21-32); MAGNESIUM 1.9 mg/dL (1.8-2.4); PHOSPHORUS 5.4 mg/dL (2.5-4.9); POTASSIUM 4.4 mmol/L (3.5-5.1); TOTAL BILIRUBIN 0.3 mg/dL (0.0-1.0); TOTAL PROTEIN, SERUM 5.7 g/dL (6.4-8.2)
[2023-12-18 18:26] LABS: CREATININE 6.8 mg/dL (0.6-1.3)
[2023-12-18 20:00] VITALS: BP 130/75; PULSE 74; RESP 17; RESP 19; TEMP 98; O2SAT 96
[2023-12-19 04:00] VITALS: BP 155/100; PULSE 72; TEMP 98.1; O2SAT 95
[2023-12-19 07:18] LABS: BASOPHILS # (AUTO) 0.1 K/uL (0.00-0.22); BASOPHILS % (AUTO) 2.5 % (0.0-2.0); EOSINOPHILS # (AUTO) 0.1 K/uL (0-0.4); EOSINOPHILS % (AUTO) 3.7 % (0.0-4.0); HEMATOCRIT 25.3 % (36-52); HEMOGLOBIN 8.6 g/dL (12.0-18.0); LYMPHOCYTES # (AUTO) 1.1 K/uL (2.0-11.5); LYMPHOCYTES % (AUTO) 31.5 % (20.5-51.1); MEAN CORPUSCULAR HEMOGLOBIN 33 pg (27-31); MEAN CORPUSCULAR HGB CONC 34 g/dL (33-37); MEAN CORPUSCULAR VOLUME 96.6 fL (80-94); MONOCYTES # (AUTO) 0.5 K/uL (0.8-1.0); MONOCYTES % (AUTO) 13.9 % (1.7-9.3); NEUTROPHILS # (AUTO) 1.7 K/uL (1.8-7.7); NEUTROPHILS % (AUTO) 48.4 % (42.2-75.2); PLATELET COUNT (AUTO) 108 K/uL (140-450); RED BLOOD CELL COUNT(AUTO) 2.62 MIL/uL (4.20-6.10); RED CELL DISTRIBUTION WIDTH 16.2 % (11.6-13.7); WHITE BLOOD COUNT (AUTO) 3.5 K/uL (4.8-10.8)
[2023-12-19 07:58] LABS: ALBUMIN 2.8 g/dL (3.4-5.0); ANION GAP 15.6 (8-16); CALCIUM 7.6 mg/dL (8.5-10.1); CARBON DIOXIDE 25.8 mmol/L (21-32); PHOSPHORUS 6.4 mg/dL (2.5-4.9); POTASSIUM 4.4 mmol/L (3.5-5.1); TOTAL BILIRUBIN 0.2 mg/dL (0.0-1.0); TOTAL PROTEIN, SERUM 6.1 g/dL (6.4-8.2)
[2023-12-19 08:00] VITALS: BP 171/101; PULSE 72; PULSE 74; RESP 17; RESP 18; RESP 19; TEMP 97.7; O2SAT 96
[2023-12-19 08:00] LABS: CREATININE 7.8 mg/dL (0.6-1.3)
[2023-12-19] MEDS: EPOETIN ALFA-EPBX 10,000 UNITS/ML VIAL IV SCH (09:00)
[2023-12-19 11:31] VITALS: O2SAT 97
[2023-12-19 12:00] VITALS: TEMP 98
[2023-12-19 16:00] VITALS: BP 175/99; PULSE 85; RESP 18; TEMP 98.3; O2SAT 100
[2023-12-19 20:00] VITALS: BP 158/85; PULSE 76; RESP 19; RESP 20; TEMP 98.1; O2SAT 96; O2SAT 98
[2023-12-19] MEDS: carvediloL 12.5 MG TAB PO SCH (21:23)
[2023-12-20] VITALS: BP 140/87; PULSE 77; RESP 18; TEMP 98; O2SAT 99
[2023-12-20 04:00] VITALS: BP 140/87; PULSE 77; RESP 18; TEMP 98; O2SAT 99
[2023-12-20 07:20] LABS: BASOPHILS # (AUTO) 0.1 K/uL (0.00-0.22); BASOPHILS % (AUTO) 2.9 % (0.0-2.0); EOSINOPHILS # (AUTO) 0.1 K/uL (0-0.4); EOSINOPHILS % (AUTO) 3.8 % (0.0-4.0); HEMATOCRIT 26.1 % (36-52); HEMOGLOBIN 8.9 g/dL (12.0-18.0); LYMPHOCYTES # (AUTO) 1.2 K/uL (2.0-11.5); LYMPHOCYTES % (AUTO) 29.9 % (20.5-51.1); MEAN CORPUSCULAR HEMOGLOBIN 33 pg (27-31); MEAN CORPUSCULAR HGB CONC 34 g/dL (33-37); MEAN CORPUSCULAR VOLUME 95.9 fL (80-94); MONOCYTES # (AUTO) 0.5 K/uL (0.8-1.0); MONOCYTES % (AUTO) 12.7 % (1.7-9.3); NEUTROPHILS % (AUTO) 50.7 % (42.2-75.2); PLATELET COUNT (AUTO) 111 K/uL (140-450); RED BLOOD CELL COUNT(AUTO) 2.72 MIL/uL (4.20-6.10); RED CELL DISTRIBUTION WIDTH 15.6 % (11.6-13.7); WHITE BLOOD COUNT (AUTO) 3.9 K/uL (4.8-10.8)
[2023-12-20 07:59] LABS: ALBUMIN 2.9 g/dL (3.4-5.0); ANION GAP 15.3 (8-16); CALCIUM 7.8 mg/dL (8.5-10.1); CARBON DIOXIDE 27.5 mmol/L (21-32); MAGNESIUM 2.1 mg/dL (1.8-2.4); PHOSPHORUS 6.3 mg/dL (2.5-4.9); POTASSIUM 4.8 mmol/L (3.5-5.1); TOTAL BILIRUBIN 0.3 mg/dL (0.0-1.0); TOTAL PROTEIN, SERUM 6.1 g/dL (6.4-8.2)
[2023-12-20 08:00] VITALS: BP 186/115; PULSE 64; PULSE 76; RESP 18; RESP 19; RESP 20; TEMP 98.8; O2SAT 100; O2SAT 96; O2SAT 98
[2023-12-20 08:01] LABS: CREATININE 6.7 mg/dL (0.6-1.3)
[2023-12-20 12:00] VITALS: TEMP 98.4
== END 2023-12-20 15:57 | disposition left against medical advice (07) | DRG 199 ==
LOC: MED 10:34 → MTU 13:49
PROVIDERS: ADMIT Student in an Organized Health Care Education/Training Program; ATTEND Student in an Organized Health Care Education/Training Program
PROC: 5A1D70Z Performance of Urinary Filtration, Intermittent, Less than 6 Hours Per Day (ICD-10-PCS; principal; 2023-12-16)
PROC: 5A1D70Z Performance of Urinary Filtration, Intermittent, Less than 6 Hours Per Day (ICD-10-PCS; 2023-12-17)
PROC: 5A1D70Z Performance of Urinary Filtration, Intermittent, Less than 6 Hours Per Day (ICD-10-PCS; 2023-12-19)
DX: I16.1 Hypertensive emergency (principal); J96.00 Acute respiratory failure, unspecified whether with hypoxia or hypercapnia; I50.23 Acute on chronic systolic (congestive) heart failure; D61.818 Other pancytopenia; N18.6 End stage renal disease; I42.9 Cardiomyopathy, unspecified; D63.1 Anemia in chronic kidney disease; I13.2 Hypertensive heart and chronic kidney disease with heart failure and with stage 5 chronic kidney disease, or end stage renal disease; F14.10 Cocaine abuse, uncomplicated; Z99.2 Dependence on renal dialysis; J45.909 Unspecified asthma, uncomplicated; F41.9 Anxiety disorder, unspecified; Z53.29 Procedure and treatment not carried out because of patient's decision for other reasons; Z91.158 Patient's noncompliance with renal dialysis for other reason; Z91.199 Patient's noncompliance with other medical treatment and regimen due to unspecified reason; Z79.899 Other long term (current) drug therapy; Z86.73 Personal history of transient ischemic attack (TIA), and cerebral infarction without residual deficits
CPT/HCPCS: 36415; 71045; 80048; 80053; 80305; 83735; 83880; 84100; 84484; 85025; 85610; 85730; 87081; 90935; 93005; 99285; J0360; J1644; J1940; Q5106